=== PATIENT | female | born 1945 | race Caucasian/White ===

== ENCOUNTER 2016-08-09 01:41 | Emergency (ER) | payer MEDICARE, MEDICAID | END 2016-08-09 04:05 | disposition home or self-care (01) | DX: I10 Essential (primary) hypertension (principal); R07.89 Other chest pain; E11.9 Type 2 diabetes mellitus without complications; Z79.84 Long term (current) use of oral hypoglycemic drugs; Z79.82 Long term (current) use of aspirin ==

== ENCOUNTER 2016-10-30 08:53 | Outpatient (CLI) | payer MEDICARE, MEDICAID | END 2016-10-30 08:54 | disposition home or self-care (01) | DX: E11.9 Type 2 diabetes mellitus without complications (principal) ==

== ENCOUNTER 2017-03-02 08:00 | Outpatient (CLI) | payer MEDICARE, MEDICAID ==
[2017-03-02 19:38] LABS: CALCIUM 9.2 mg/dL (8.5-10.3); CREATININE 1.3 mg/dL (0.4-1.0); POTASSIUM 3.7 mmol/L (3.5-5.0)
[2017-03-02 19:58] LABS: HCT - HEMATOCRIT 40.7 % (37.0-47.0); HGB - HEMOGLOBIN 13.7 g/dL (12.0-16.0); MEAN CORPUSCULAR HEMOGLOBIN 29.9 pg (27.0-31.0); MEAN CORPUSCULAR HGB CONC 33.6 g/dL (32.0-36.0); MEAN CORPUSCULAR VOLUME 89.2 fL (81.0-99.0); MEAN PLATELET VOLUME 7.5 fL (7.9-10.8); RED BLOOD COUNT 4.56 10^6/uL (4.20-5.40); RED CELL DISTRIBUTION WIDTH 13.3 % (12.0-15.0); WHITE BLOOD COUNT 6.7 x10^3/uL (4.8-10.8)
[2017-03-04 09:27] LABS: TEST RESULT REPORT (())
== END 2017-03-02 08:01 | disposition home or self-care (01) ==
LOC: LAB.N 08:00
PROVIDERS: ATTEND Internal Medicine Nephrology
DX: N05.9 Unspecified nephritic syndrome with unspecified morphologic changes (principal); D70.9 Neutropenia, unspecified; D63.1 Anemia in chronic kidney disease; R80.9 Proteinuria, unspecified
CPT/HCPCS: 36415; 80048; 81599; 82570; 84156; 86021

== ENCOUNTER 2017-12-20 13:06 | Outpatient (CLI) | payer MEDICARE, MEDICAID ==
--- NOTE | 2017-12-21 01:35 | XRAY Report ---
EXAM: CHEST RADIOGRAPHY EXAM DATE: 12/20/2017 01:23 PM. CLINICAL HISTORY: History of lung surgery for pulmonary mass,encounter. COMPARISON: 08/09/2016. TECHNIQUE: 2 views. FINDINGS: Lungs/Pleura: Lungs are mildly hyperinflated. No focal opacities. No pneumothorax or effusions. Lef t apical region of scarring is noted. Mediastinum: Heart and mediastinal contours are unremarkable. Other: None. IMPRESSION: Probable COPD with areas of scarring at the left lung apex. No acute pulmonary process. [facility] Referring Provider Line: [phone] SITE ID: [id number]
== END 2017-12-20 13:07 | disposition home or self-care (01) ==
LOC: RT 13:06
PROVIDERS: ATTEND Obstetrics & Gynecology
DX: Z01.818 Encounter for other preprocedural examination (principal); Z86.018 Personal history of other benign neoplasm
CPT/HCPCS: 71046; 93005; 94010

== ENCOUNTER 2018-02-02 16:07 | Outpatient (CLI) | payer MEDICARE, MEDICAID ==
[2018-02-02 16:29] LABS: LYMPHOCYTES # (AUTO) 3.2 10^3/uL (1.5-3.5); MONOCYTES # (AUTO) 0.5 10^3/uL (0.0-1.0); WHITE BLOOD COUNT 7.3 x10^3/uL (4.8-10.8)
[2018-02-02 16:31] LABS: BASOPHILS % (AUTO) 0.2 %; EOSINOPHILS # (AUTO) 0.2 10^3/uL (0.0-0.7); EOSINOPHILS % (AUTO) 3.3 %; HGB - HEMOGLOBIN 13.9 g/dL (12.0-16.0); LYMPHOCYTES % (AUTO) 43.8 %; MEAN CORPUSCULAR HEMOGLOBIN 29.5 pg (27.0-31.0); MEAN CORPUSCULAR HGB CONC 33.2 g/dL (32.0-36.0); MEAN CORPUSCULAR VOLUME 88.8 fL (81.0-99.0); MEAN PLATELET VOLUME 6.9 fL (7.9-10.8); MONOCYTES % (AUTO) 6.9 %; NEUTROPHILS # (AUTO) 3.3 10^3/uL (1.5-6.6); NEUTROPHILS % (AUTO) 45.8 %; PLT - PLATELET COUNT 222 10^3/uL (130-450); RED BLOOD COUNT 4.72 10^6/uL (4.20-5.40); RED CELL DISTRIBUTION WIDTH 14.2 % (12.0-15.0)
[2018-02-02 16:37] LABS: BILIRUBIN,URINE NEGATIVE (NEGATIVE); GLUCOSE, URINE (UA) NEGATIVE (NEGATIVE); KETONES,URINE (UA) NEGATIVE (NEGATIVE); LEUKOCYTE ESTERASE, URINE NEGATIVE (NEGATIVE); NITRITE,URINE POSITIVE (NEGATIVE); OCCULT BLOOD,URINE TRACE-LYSE (NEGATIVE); PROTEIN,URINE NEGATIVE (NEGATIVE); UROBILINOGEN,URINE 0.2 (NORMAL) E.U./dL (NORMAL)
[2018-02-02 16:39] LABS: CLARITY,URINE HAZY (CLEAR)
[2018-02-02 16:44] LABS: HB2 TOTAL 14.3 g/dL; HEMOGLOBIN A1C 0.66 g/dL; HEMOGLOBIN A1C % 6.4 % (4.6-6.2)
[2018-02-02 16:50] LABS: ALBUMIN 3.9 g/dL (3.2-5.5); ALBUMIN/GLOBULIN RATIO 1.1 (1.0-2.2); BILIRUBIN,TOTAL 0.7 mg/dL (0.2-1.0); CALCIUM 9.2 mg/dL (8.5-10.3); CREATININE 1.3 mg/dL (0.4-1.0); TOTAL PROTEIN 7.5 g/dL (6.7-8.2)
== END 2018-02-02 16:08 | disposition home or self-care (01) ==
LOC: LAB 16:07
PROVIDERS: ATTEND Obstetrics & Gynecology
DX: Z01.812 Encounter for preprocedural laboratory examination (principal); N81.4 Uterovaginal prolapse, unspecified; R32 Unspecified urinary incontinence; E11.9 Type 2 diabetes mellitus without complications
CPT/HCPCS: 36415; 80053; 81003; 83036; 85025; 86850; 86900; 86901

== ENCOUNTER 2018-02-03 06:21 | Inpatient (IN) | payer MEDICARE, MEDICAID ==
--- NOTE | 2018-01-28 10:38 | PREOP HISTORY & PHYSICAL ---
DATE OF SERVICE: 01/26/2018 Physician: Aleksander Moraes MD DATE OF PROCEDURE OF 02/03/2018 DIAGNOSES 1. Third degree cystocele, second degree rectocele and uterine prolapse. 2. Failed pessary attempt secondary to erosions into the vaginal wall. PROPOSED PROCEDURES 1. Total vaginal hysterectomy. 2. Anterior and posterior colporrhaphy. 3. Sacrospinous colpopexy. 4. Possible laparotomy. 5. Possible salpingo-oophorectomy. HISTORY OF PRESENT ILLNESS: The patient is a 72-year-old 6 para 6, Filipina woman who has significant prolapse bulge with associated pain. Prolapse is multicompartment, grade 3 cystocele, grade 2 rectocele, and grade 2 uterine prolapse. She was using a pessary for some time, until her arthritis made it difficult to manage. She neglected pessary hygiene and developed deep erosions into the posterior fornix, towards the rectum and bladder a little bit inferior. She was begun on pessary rest for over a month with supplemental doses of MetroGel and Vagifem. She does not have any postmenopausal bleeding, and her chronic discharge has abated with the MetroGel and Vagifem. Patient does not report any stress urinary incontinence but does have bladder neck and urethral mobility. Her last Pap smear was in 2010 and normal, with no history of abnormal Pap smears. PAST MEDICAL HISTORY 1. Hypertension. 2. Osteopenia associated with chronic back pain. 3. History of both hip and pelvic fracture. 4. Last mammogram was normal in 2012. 5. Known type 2 diabetes and thyroid disease. PAST SURGICAL HISTORY 1. Appendectomy in 1968. 2. Pneumonectomy. ALLERGIES: NO KNOWN DRUG ALLERGIES. MEDICATIONS 1. Vagifem tablets. 2. MetroGel vaginal ointment twice a day. 3. Diovan. 4. Prevacid. 5. Antihypertensives yet to be listed. FAMILY HISTORY: Breast cancer sister, lung cancer brother. No colon cancer or ovarian cancer known. SOCIAL HISTORY: . Never smoked. No drug or alcohol use. Occasional coffee use. Occupation retired. Not currently sexually active. We will discuss advance directive. REVIEW OF SYSTEMS CONSTITUTIONAL: Negative. No night sweats, fevers, or recent illnesses. HEENT: Negative. CARDIOVASCULAR: Negative. RESPIRATORY: Spontaneous pneumothorax and thoracotomy. GI: Negative. GENITOURINARY: Grand multiparity. No stress or urge incontinence noted. 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 SKIN: Negative. BREASTS: Breast exam negative. NEURO: Negative. PSYCHOLOGICAL: Upbeat, normal. PHYSICAL EXAMINATION GENERAL: Appears happy, talkative. Well-nourished, walks without any assistance. HEENT: Atraumatic. Good oral hygiene. No pharyngitis. Nonicteric sclerae. NECK. Supple neck. No thyroid enlargement or nodules. LUNGS: Chest symmetric, normal respiratory excursions. Lungs clear to auscultation. CARDIAC: Regular, minor flow murmur II/. EXTREMITIES: No peripheral vascular abnormalities other than varicose veins in the legs. ABDOMEN: Soft, nontender. No hernia or masses. MUSCULOSKELETAL: Adequate range of motion. No CVA tenderness. No pedal edema or muscular wasting. There are degenerative changes in the fingers and lower spine. NEUROLOGIC: Grossly normal. No obvious motor or sensory defect. Cranial nerves intact. PSYCHOLOGICAL: Alert, oriented. EXTERNAL GENITALIA: Bartholin glands normal. No lesions. Urethral meatus is normal, but mobile. Some minor vulvar atrophic changes. Vagina moist. MetroGel in place. Vastly improved posterior fornix skin quality. Cystocele stage 3, rectocele stage 2, with a nearly grade 2 uterine prolapse. CERVIX: No ulcerations. Some redundancy of vaginal mucosa in the posterior fornix, probably torn in delivery. UTERUS: Retroverted, retroflexed, mobile. ADNEXAE: Cannot palpate either adnexa. ADMISSION LABS: Pending. ASSESSMENT: This patient is an active 72-year-old woman who has failed pessary trial due to difficulty maintaining appropriate hygiene. She is symptomatic without the pessary and desires prolapse repair. Her prolapse involves all 3 compartments. Therefore, this can be adequately addressed including hysterectomy with enterocele repair, followed by anterior and posterior repair, and sacrospinous suspension to provide apical support. Patient may have procedure under regional anesthesia. She does have a history of thoracotomy. Chest x-ray shows mildly hyperinflated lungs without any opacities or pneumothorax. Heart and mediastinal contour is normal. Probable mild chronic obstructive pulmonary disease. Anesthesia clearance already obtained. Reference Pierre Ley's note. PLAN: Total vaginal hysterectomy with probable enterocele repair and concomitant anterior and posterior repair. The patient prizes longevity, and is sexually inactive; therefore colporrhaphy may be done aggressively. To provide adequate anterior support, sacrospinous stitch is anticipated. The procedure may be done under regional anesthesia or spinal. In terms of recurrence of stress urinary incontinence, it may or may not occur, as the ureter is unkinked. May reserve surgery if this becomes a problem in the future. All risks, benefits, and potential complications were reviewed, as well as alternative therapy. Informed consent paperwork was signed. Patient is anticipated to require observation or admission due to multiple surgical procedures, multiple medical problems, advanced age and need for bladder training. Do not anticipate the admission to last more than 96 hours. TD: 01/26/2018 10:24 EVETTE
--- NOTE | 2018-01-31 08:45 | PREOP HISTORY & PHYSICAL ---
DATE OF SERVICE: 02/02/2018 Physician: Aleksander Moraes MD PREOPERATIVE DIAGNOSES 1. Near-complete vaginal ureteral prolapse. 2. Failed pessary trial. 3. History of thoracotomy. 4. Osteopenia. 5. Hypertension. 6. Grand multip. 7. Type 2 diabetes. 8. Hyperthyroidism treated with radioactive iodine. DATE OF SURGERY 03 FEBRUARY 2018 PROCEDURE 1. Total vaginal hysterectomy 2. Anterior and posterior colporrhaphy 3. Sacral spinous vaginal resuspension 4. Postoperative cystoscopy HISTORY OF PRESENT ILLNESS: Patient is a 72-year-old spry and active 6 , para 6, Filipina lady who has used a pessary for a number of years to reduce her large cystorectocele and uterine prolapse. Arthritis in the fingers has become an issue, and she can no longer maintain pessary hygiene. Recently she was treated for vaginal erosion secondary to the pessary. After prolonged pessary rest, estrogen topical cream, and MetroGel , she finally healed these deep erosions. Reference my office notes on 01/26/2018. Patient is a grand multip with history of 6 vaginal deliveries. Generally between 2700 and 3000 grams. Patient does not report any postmenopausal bleeding. Her last Pap was in 2010 and normal. She has had no abnormal Pap results. Patient no longer feels that the pessary is not her best option, since she can no longer remove it and maintain it. She desires surgical correction. On 3 occasions surgical options were reviewed. She will require remedy of uterine prolapse, apical prolapse with a third-degree cystocele, and second-degree rectocele. She desires aggressive repair so that she has less of a chance of a second procedure. Currently she is not sexually active, nor does she intend to become. Risks of surgery were discussed on 2 occasions including blood loss , transfusion, anesthesia reaction, damage to urinary tract and intestinal tract. No guarantee of cure was made. Intended procedure will be total vaginal hysterectomy with removal of tubes and ovaries if accessible; anterior repair with sacrospinous colpopexy, and posterior repair with perineoplasty. PAST MEDICAL HISTORY Patient has type 2 diabetes, which is well controlled with diet, exercise, and medication. Last hemoglobin A1c pending. Patient is also known to be hypertensive with good control. Patient has chronic back and hip pain. Her most recent bone density 2 years ago was within normal range. Last mammogram is normal on 2012. PAST SURGICAL HISTORY 1. Appendectomy. 2. 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 ALLERGIES: NO KNOWN MEDICAL ALLERGIES. MEDICATIONS 1. Vagifem 10 mcg twice weekly. 2. MetroGel. 3. Diovan. 4. Evista. 5. Prevacid. REVIEW OF SYSTEMS CONSTITUTIONAL: Negative. HEENT: Negative. CARDIOVASCULAR: Negative. RESPIRATORY: Negative. GI: Negative. : Patient reports stress urinary incontinence and has some known bladder mobility. Urinalysis negative. MUSCULOSKELETAL: Back pain is noted, again, before, past history of Lexi disease. SKIN: Negative. BREASTS: No self-breast exam findings. NEUROLOGIC: Negative. PSYCHOLOGIC Negative. HEMATOLOGIC/LYMPHATIC: Negative. Patient does not report easy bruising tendency. SOCIAL HISTORY: . No drug, tobacco, or alcohol use. Currently disabled. ADVANCED DIRECTIVES: She states she desires resuscitation. FAMILY HISTORY: Breast cancer, sister; lung cancer, brother. PHYSICAL EXAMINATION GENERAL: Well groomed, pleasant, alert, oriented. VITAL SIGNS: Posted. HEENT: Supple neck, no thyromegaly. EOMI. Nonicteric sclerae. Dentition in repair. LUNGS: Clear to auscultation. Thoracotomy scar noted, right lung. CARDIAC: Regular. No significant murmur or gallop. GI/ABDOMEN: Nondistended. No organomegaly. No tenderness. EXTERNAL GENITALIA: No lesions noted. Estrogen effect present. VAGINA: Pessary out, and mucosa is pink and reepithelialized. No tenderness noted. Notable uterine prolapse. Third-degree cystocele, second-degree rectocele. Uterus small, mobile, prolapses almost to the introitus. EXTREMITIES: Varicosities noted both extremities. NEUROLOGIC: Grossly intact. PSYCHOLOGICAL: Alert, oriented. ASSESSMENT: Patient has known near-total uterovaginal prolapse that has been treated with a pessary for several years. Unfortunately, arthritis makes the pessary difficult to maintain appropriate hygiene, and vaginal erosions have occurred. These have been successfully treated, and patient wishes to explore surgical treatment of the prolapse. Looking at the prolapsing pelvic compartments, comprehensive suspension is best. She has received clearance from Anesthesia prior to this procedure. Patient may be done under spinal anesthetic to avert pulmonary or vascular stress if Anesthesia deems appropriate. PLAN: Total vaginal hysterectomy with possible bilateral salpingooophorectomy; anterior posterior repair; sacrospinous suspension procedure; perineoplasty. At this time, sling procedure will be held until post procedure to determine if iatrogenic stress urinary incontinence occurs. We discussed the potential benefits, risks, and alternatives to surgery. Appropriate informed consent documents were signed and witnessed. TD: 02/02/2018 10:16 EVETTE
[2018-02-03] MEDS ORDERED: LACTATED RINGERS 1,000 ML IV ONE ×2 (06:48→13:15)
[2018-02-03] MEDS ORDERED: ceFAZolin 2 GM/50 ML 2 GM/50 ML BAG IV ONE (07:26)
[2018-02-03] MEDS ORDERED: BUPIVACAINE 0.5% PF 30 ML VIAL ONE (07:42)
[2018-02-03] MEDS ORDERED: ESTROGENS, CONJUGATED CREAM 30 GM TUBE ONE (07:43)
[2018-02-03] MEDS ORDERED: MIDAZOLAM 2 MG/2 ML VIAL IVP ONE (10:00)
[2018-02-03] MEDS ORDERED: ROCURONIUM 50 MG/5 ML VIAL IVP ONE (10:00)
[2018-02-03] MEDS ORDERED: GLYCOPYRROLATE 1 MG/5 ML VIAL IVP ONE (10:00)
[2018-02-03] MEDS ORDERED: DEXAMETHASONE 4 MG/ML VIAL IVP ONE (10:00)
[2018-02-03] MEDS ORDERED: NEOSTIGMINE 1 MG/1 ML 10 ML MDV IVP ONE (10:00)
[2018-02-03] MEDS ORDERED: LIDOCAINE-MPF 2% 5 ML VIAL IM ONE (10:00)
[2018-02-03] MEDS ORDERED: ACETAMINOPHEN 1,000 MG/100 ML 100 ML IV ONE (10:00)
[2018-02-03] MEDS ORDERED: PROPOFOL 200 MG/20 ML VIAL IVP ONE (10:00)
[2018-02-03] MEDS ORDERED: ONDANSETRON 4 MG/2 ML VIAL IVP ONE (10:00)
[2018-02-03] MEDS ORDERED: fentaNYL 250 MCG/5 ML VIAL IVP ONE (10:00)
--- NOTE | 2018-02-03 10:17 | OPERATIVE REPORT ---
Operative Report - General Procedure Date: 02/03/18 Pre-Op Diagnosis: Uterine and vaginal prolapse; hypertension; type 2 diabetes; failed pessary Procedure Performed: Total vaginal hysterectomy; anterior and posterior colporrhaphy; sacral spinous colpopexy; Whelan's culdoplasty; Hanna plication; perineal plasty; cystoscopy Post Op Diagnosis: Same as above; cystitis cystica - Procedure Note Primary Surgeon: Aleksander Moraes MD FACOG Secondary Surgeon: Aleksander Vance MD F ACOG Anesthesia Provider: Lesli Patel certified nurse enterprise mobility architect Anesthesia Technique: General ET tube Pathology: Uterus IV Fluids (mL): 800 Estimated Blood Loss (mL): 150 Urine Output (mL): 200 Drain/Tube Type: Other (Johnson catheter; vaginal packing with Premarin) Complications: None
[2018-02-03] MEDS ORDERED: BUPIVACAINE 0.5% PF 30 ML VIAL INFIL ONE (10:38)
[2018-02-03] MEDS ORDERED: BUPIVACAINE 0.5%-EPI 1:200000 PF 30 ML VIAL SUBQ ONE ×2 (10:40)
[2018-02-03] MEDS ORDERED: BUPIVACAINE 0.5%-EPI 1:200000 PF 30 ML VIAL ONE (10:46)
[2018-02-03] MEDS ORDERED: METHYLENE BLUE 0.5% 50 MG/10 ML AMPULE ONE (12:33)
[2018-02-03] MEDS: hydrALAZINE INJ 20 MG/ML VIAL ONE ×2 (13:35→13:46)
[2018-02-03] MEDS ORDERED: ONDANSETRON 4 MG/2 ML VIAL IVP PRN (14:11)
[2018-02-03] MEDS ORDERED: BENZONATATE 100 MG CAPSULE PO PRN (14:31)
[2018-02-03] MEDS: LACTATED RINGERS 1,000 ML IV SCH (14:37)
[2018-02-03] MEDS: HYDROmorphone 0.5 MG/0.5 ML SYRINGE IVP PRN (14:41)
[2018-02-03] MEDS ORDERED: SODIUM CHLORIDE FLUSH 0.9% 10 ML SYRINGE ONE (15:54)
[2018-02-03] MEDS ORDERED: ACETAMINOPHEN 1,000 MG/100 ML 100 ML IV PRN (15:57)
--- NOTE | 2018-02-03 17:28 | OPERATIVE REPORT ---
DATE OF SERVICE: 02/03/2018 Physician: Aleksander Moraes MD PREOPERATIVE DIAGNOSES 1. Near complete uterine and vaginal prolapse (third degree cystocele, second degree rectocele, second-degree uterine prolapse with enterocele). 2. Chronic hypertensive. 3. Type 2 diabetic. 4. COPD 5. Failed pessary trial. POSTOPERATIVE DIAGNOSES 1. Almost complete uterine and vaginal prolapse (third degree cystocele, second degree rectocele, second-degree uterine prolapse with enterocele). 2. Chronic hypertensive. 3. Type 2 diabetic. 4. Failed pessary trial. 5. Cystitis cystica. 6. COPD PROCEDURES PERFORMED 1. Total vaginal hysterectomy. 2. Anterior and posterior colporrhaphy. 3. Sacral spinous colpopexy. 4. Whelan culdoplasty. 5. Hanna plication. 6. Perineoplasty. 7. Cystoscopy. SURGEON: Aleksander Moraes MD, FACOG, FICS SLEEPING CAR CONDUCTOR: Aleksander Grant MD, FACOG ANESTHESIA: Lesli Patel, certified nurse watchmaker apprentice. ANESTHESIA: General, ET tube placed; 30 cc of Marcaine 0.5% with epinephrine COMPLICATIONS: None. ESTIMATED BLOOD LOSS: 150 mL IV FLUIDS: 800 mL URINE OUTPUT: 200 mL, clear. DRAINS: Johnson catheter with vaginal packing enriched with Premarin. FINDINGS: At the time of surgery, the uterus had prolapsed 3 cm through the hymenal ring with a large bulging cystocele. There was a kissing rectocele that was a little smaller, grade 2. In the cul-de-sac, there was small intestine and there was also small intestine in the anterior cul-de-sac as well. The ovaries were not visualized. Cystoscopy reveals a uterine mucosa studded with cystic blebs from severe cystitis cystica. There was no obvious tumor. Both the right and left ureter produced urine. Rectal exam found no intraluminal stitches. Postoperatively, the vaginal apex was supported well into the pelvis by means of sacrospinous suspension sutures. TECHNIQUE: The patient was brought to operating table and placed in the supine position for administration of general anesthesia. She was uneventfully induced and intubated. She was then moved to the low dorsal lithotomy position on [facility] stirru. She was prepped and draped in customary sterile fashion, inclusive of Johnson catheter. Timeout briefing was done per protocol. A weighted retractor was placed in the posterior vaginal wall and the cervix was grasped with two Sj clamps and placed on traction. The cervical barrel then was injected with multiple small volume doses of Marcaine with epinephrine. The cervix then was circumscribed in a manner that included a tongue of acetowhite epithelium on the cervical barrel at 8 to 10 o'clock. Using sharp and blunt dissection, anterior compartment was developed and sharply entered. The posterior compartment was sharply entered without difficulty. The base of the uterosacral ligaments were clamped, transected, and then transfixed with a suture of 0 Vicryl. Next, the uterosacral ligaments and cardinal ligaments were grasped, transected, and transfixed with 0 Vicryl. The uterine vessels were clamped, transected, and suture ligated with 0 Vicryl. The tubes and utero-ovarian ligaments were finally clamped, transected, and transfixed with 0 Vicryl. The uterus then was removed in total. It was elected not to attempt salpingo-oophorectomy because the ovaries and tubes were high within the pelvis. The pelvic floor peritoneum was doubly purse stringed with 2-0 Vicryl. Next, the uterosacral and cardinal ligaments were plicated in the midline to create a ligamentous shelf of support. A 0 Vicryl strand from the uterosacral ligaments was passed through the vaginal mucosa, as to tack it into the ligamentous support. The vaginal mucosa was closed in the midline with a running stitch of 0 Vicryl. Next, anterior colporrhaphy was accomplished. Small aliquots of 0.5% Marcaine and epinephrine were injected along the 6 o'clock position of the cystocele bulge, beginning at the bladder neck and continuing down to the vaginal cuff. Using sharp and blunt dissection, the vaginal mucosa was peeled off of the underlying fascia. The underlying fascia was then gathered with a running stitch of 2-0 Vicryl. This readily reduced the cystocele bulge. Next, the periurethral fascia was grasped slightly behind the pubis and captured with a stitch of 0 Vicryl on either side of the urethra. This tissue was then plicated together in the midline to provide bladder neck support. The anterior repair of vaginal mucosa was then closed with interrupted sutures of 2-0 chromic. Next, posterior colporrhaphy was accomplished. Beginning at the vaginal cuff 6 o'clock position, a midline incision was executed up to the hymenal ring. Two tent- like flaps of vaginal mucosa were developed with blunt and sharp dissection. The bulging rectocele defect underneath was first reduced with a running stitch of 2-0 chromic. After that, a second stitch of 2-0 Vicryl was placed to further reduce the bulge. The top one-third of the vaginal part of the colporrhaphy was then closed. Sacrospinous colpopexy. The ischial spines were identified as well as palpating the sacrospinous ligament. The Capio was loaded with 0 Ethibond and placed 1 fingerbreadth medial of the spine, directly overhead the sacrospinous ligament. When certain of the position and angle of fire, the Capio was activated and the suture passed through the sacrospinous ligament. A similar suture was placed approximately 0.5 cm medial to the first. Next, each SSC strand was tied into a ian stitch that captured the posterior colporrhaphy vaginal mucosa slightly below and lateral to the cuff. The ian stitches were then pulled tightly and elevated the vaginal cuff into the pelvis. Care was taken to ensure there was no violin string present. Next, the remainder of posterior colporrhaphy vaginal mucosa was closed with interrupted stitches of 0 chromic. A V-like incision was placed above the anus over the perineal body. The skin was removed. Next, the perineal body and bulbocavernosus muscles were captured with sutures of 0 Vicryl. In turn, they were tied tightly, thereby bolstering the perineal body. The perineal skin was closed with interrupted sutures of 3-0 Vicryl. Next, the 70-degree video cystoscope was brought to the field. It was uneventfully inserted through the urethra and into the bladder. The bladder was filled with warm sterile normal saline. A great deal of cystic change and inflammation was noted. A small dose of Lasix was given with methylene blue. The right and left ureter were noted to be functional. At this point, the Johnson was replaced. The patient was brought supine. Her sponge, needle and instrument counts were confirmed as correct. Anesthesia was reversed, and the patient was uneventfully awakened. She was taken to the recovery room in stable condition. She will remain in an overnight status/extended stay. She may require even longer hospitalization to recover function, but it is not anticipated that she will require more than 96 hours. TD: 02/03/2018 14:51 EVETTE
[2018-02-03] MEDS: PANTOPRAZOLE 40 MG TABLET PO SCH (20:02)
[2018-02-03] MEDS: CARVEDILOL 3.125 MG TABLET PO SCH (20:03)
[2018-02-03] MEDS: DOCUSATE SODIUM 250 MG CAPSULE PO SCH (20:03)
[2018-02-03] MEDS: oxyCOD/ACETAMIN 5 MG/325 MG TABLET PO PRN (20:53)
[2018-02-04] MEDS: LACTATED RINGERS 1,000 ML IV SCH ×3 (00:26→22:23)
[2018-02-04] MEDS: HYDROmorphone 0.5 MG/0.5 ML SYRINGE IVP PRN ×2 (05:44→12:00)
[2018-02-04 05:52] LABS: BASOPHILS # (AUTO) 0.1 10^3/uL (0.0-0.1); BASOPHILS % (AUTO) 0.9 %; HGB - HEMOGLOBIN 13.2 g/dL (12.0-16.0); LYMPHOCYTES # (AUTO) 2.2 10^3/uL (1.5-3.5); LYMPHOCYTES % (AUTO) 14.6 %; MEAN CORPUSCULAR HEMOGLOBIN 29.4 pg (27.0-31.0); MEAN CORPUSCULAR HGB CONC 32.9 g/dL (32.0-36.0); MEAN CORPUSCULAR VOLUME 89.4 fL (81.0-99.0); MEAN PLATELET VOLUME 6.9 fL (7.9-10.8); MONOCYTES # (AUTO) 0.9 10^3/uL (0.0-1.0); NEUTROPHILS # (AUTO) 11.9 10^3/uL (1.5-6.6); NEUTROPHILS % (AUTO) 78.5 %; PLT - PLATELET COUNT 207 10^3/uL (130-450); RED BLOOD COUNT 4.49 10^6/uL (4.20-5.40); WHITE BLOOD COUNT 15.2 x10^3/uL (4.8-10.8)
[2018-02-04 06:05] LABS: ALBUMIN 3.4 g/dL (3.2-5.5); CALCIUM 8.5 mg/dL (8.5-10.3); CREATININE 1.2 mg/dL (0.4-1.0); TOTAL PROTEIN 6.7 g/dL (6.7-8.2)
[2018-02-04] MEDS: oxyCOD/ACETAMIN 5 MG/325 MG TABLET PO PRN ×4 (06:57→22:54)
--- NOTE | 2018-02-04 08:30 | PROVIDER PROGRESS NOTE ---
Subjective - General Procedure Date: 02/03/18 Post Op Days: 1 Procedure Performed: Pelvic reconstruction, TVH, A & P repair, Sacral Spinous Suspension - Review of Systems Wound/Incisions: positive: Other (Clean dry stitches intact) Drain Type: Johnson Drain Output Description: Clear urine General: positive: No symptoms HEENT: positive: No symptoms Pulmonary: positive: No symptoms Cardiovascular: positive: No symptoms Gastrointestinal: positive: Flatus Genitourinary: positive: Other (Sore perineum. No bite or back pain) Musculoskeletal: positive: No symptoms Skin: positive: No symptoms Psychiatric: positive: No symptoms Objective - Patient Data Weight: Weight 02/02/18 02/03/18 02/04/18 23:59 23:59 23:59 Weight (kg) 61.2 kg Intake & Output: Intake and Output Totals x24h 02/02/18 02/03/18 02/04/18 23:59 23:59 23:59 Intake Total 770 980 Output Total 1800 Balance -1030 980 - Lab Results Lab Results: 02/04/18 05:45 02/04/18 05:45 Other Lab Results: Lab Results x24hrs 02/04/18 02/04/18 02/03/18 Range/Units 05:45 05:45 12:57 WBC 15.2 H (4.8-10.8) x10^3/uL RBC 4.49 (4.20-5.40) 10^6/uL Hgb 13.2 (12.0-16.0) g/dL Hct 40.1 (37.0-47.0) % MCV 89.4 (81.0-99.0) fL MCH 29.4 (27.0-31.0) pg MCHC 32.9 (32.0-36.0) g/dL RDW 14.0 (12.0-15.0) % Plt Count 207 (130-450) 10^3/uL MPV 6.9 L (7.9-10.8) fL Neut # (Auto) 11.9 H (1.5-6.6) 10^3/uL Lymph # (Auto) 2.2 (1.5-3.5) 10^3/uL [place] # (Auto) 0.9 (0.0-1.0) 10^3/uL Eos # (Auto) 0.0 (0.0-0.7) 10^3/uL Baso # (Auto) 0.1 (0.0-0.1) 10^3/uL Absolute Nucleated RBC 0.00 x10^3/uL Nucleated RBC % 0.0 /100WBC Sodium 135 (135-145) mmol/L Potassium 3.8 (3.5-5.0) mmol/L Chloride 102 (101-111) mmol/L Carbon Dioxide 25 (21-32) mmol/L Anion Gap 8.0 (6-13) BUN 19 (6-20) mg/dL Creatinine 1.2 H (0.4-1.0) mg/dL Estimated GFR (MDRD) 44 L (>89) Glucose 135 H (70-100) mg/dL POC Whole Bld Glucose 124 H (70 - 100) mg/dL Calcium 8.5 (8.5-10.3) mg/dL Total Bilirubin 1.0 (0.2-1.0) mg/dL AST 29 (10-42) IU/L ALT 26 (10-60) IU/L Alkaline Phosphatase 60 (42-121) IU/L Total Protein 6.7 (6.7-8.2) g/dL Albumin 3.4 (3.2-5.5) g/dL Globulin 3.3 (2.1-4.2) g/dL Albumin/Globulin Ratio 1.0 (1.0-2.2) 02/03/18 Range/Units 11:57 WBC (4.8-10.8) x10^3/uL RBC (4.20-5.40) 10^6/uL Hgb (12.0-16.0) g/dL Hct (37.0-47.0) % MCV (81.0-99.0) fL MCH (27.0-31.0) pg MCHC (32.0-36.0) g/dL RDW (12.0-15.0) % Plt Count (130-450) 10^3/uL MPV (7.9-10.8) fL Neut # (Auto) (1.5-6.6) 10^3/uL Lymph # (Auto) (1.5-3.5) 10^3/uL [place] # (Auto) (0.0-1.0) 10^3/uL Eos # (Auto) (0.0-0.7) 10^3/uL Baso # (Auto) (0.0-0.1) 10^3/uL Absolute Nucleated RBC x10^3/uL Nucleated RBC % /100WBC Sodium (135-145) mmol/L Potassium (3.5-5.0) mmol/L Chloride (101-111) mmol/L Carbon Dioxide (21-32) mmol/L Anion Gap (6-13) BUN (6-20) mg/dL Creatinine (0.4-1.0) mg/dL Estimated GFR (MDRD) (>89) Glucose (70-100) mg/dL POC Whole Bld Glucose 103 H (70 - 100) mg/dL Calcium (8.5-10.3) mg/dL Total Bilirubin (0.2-1.0) mg/dL AST (10-42) IU/L ALT (10-60) IU/L Alkaline Phosphatase (42-121) IU/L Total Protein (6.7-8.2) g/dL Albumin (3.2-5.5) g/dL Globulin (2.1-4.2) g/dL Albumin/Globulin Ratio (1.0-2.2) - Current Medications Current Medications: Current Medications Generic Name Dose Route Start Last Admin Trade Name Freq PRN Reason Stop Dose Admin Carvedilol 3.125 mg 02/03/18 21:00 02/03/18 20:03 Coreg PO 3.125 mg BID CLEMENTE Administration Docusate Sodium 250 mg 02/03/18 21:00 02/03/18 20:03 Colace 250mg Capsule PO 250 mg BID CLEMENTE Administration Hydromorphone HCl 0.2 mg 02/03/18 14:10 02/04/18 05:44 Dilaudid Inj Syringe IVP 0.2 mg .[id number] PRN Administration BREAKTHOUGH PAIN Lactated Ringer's 1,000 mls @ 100 mls/hr 02/03/18 15:00 02/04/18 00:26 Lr IV 100 mls/hr .Q10H CLEMENTE Administration Acetaminophen 100 mls @ 400 mls/hr 02/03/18 15:57 02/03/18 17:43 Ofirmev IV Infused Q6HR PRN Infusion PAIN Ondansetron HCl 4 mg 02/03/18 14:11 02/03/18 15:46 Zofran Inj IVP 4 mg PRN PRN Administration Nausea / Vomiting Oxycodone/Acetaminophen 1 tab 02/03/18 14:09 02/04/18 06:57 Percocet 5 Mg/325 Mg PO 1 tab Q4HR PRN Administration PAIN Pantoprazole Sodium 40 mg 02/03/18 21:00 02/03/18 20:02 Protonix PO 40 mg QPM CLEMENTE Administration Physical Exam - Physical Exam General: positive: No acute distress, In Pain (Patient reports perineal pain) HEENT: positive: Moist mucous membranes Neck: positive: Supple w/out meningeal sx Cardiac: positive: Regular Rate Resipratory: positive: Clear to ausultation maren Abdomen: positive: Normal Bowel sounds Female : positive: Other (Peroneal stitches appear to be intact without foul discharge; internal exam not done), Director Of Strategy & Mobile present Extremities: positive: Normal ROM Skin: positive: Warm and dry Neurologic: positive: Alert and Oriented X 3, Normal Sensation, Normal Speech Assessment/Plan - Assessment/Plan Assessment: Patient is slowly recovering from pelvic reconstructive surgery and at the current time is not mobile enough for self toileting, make duration. Hemoglobin and labs are stable however her white count luisa to 15,000 without evident source of infection. She had extensive cystitis cystica and cystoscopic examination and probably has a chronic bladder infection. Patient probably will require greater than 24 hours of hospitalization and will be considered for full admission in the afternoon. Plan: Patient requires supportive care. She will benefit with antibiotics due to the cystitis cystica. She will be evaluated for possible admission this afternoon.
[2018-02-04] MEDS: NIFEdipine ER 30 MG TABLET PO SCH (10:05)
[2018-02-04] MEDS: DOCUSATE SODIUM 250 MG CAPSULE PO SCH ×2 (10:05→20:07)
[2018-02-04] MEDS: CARVEDILOL 3.125 MG TABLET PO SCH ×2 (10:05→20:07)
[2018-02-04] MEDS: ceFAZolin 1 GM in SODIUM CHLORIDE 0.9% MINIBAG 100 ML IV SCH ×2 (10:06→16:01)
[2018-02-04] MEDS: LACTULOSE 10 GM /15 ML UDC PO SCH (10:07)
[2018-02-04] MEDS ORDERED: ACETAMINOPHEN 500 MG TABLET PO PRN (11:41)
--- NOTE | 2018-02-04 11:47 | PROVIDER PROGRESS NOTE ---
Subjective - Prog Note Date Prog Note Date: 02/04/18 Prog Note Time: 11:45 - Subjective Pt reports feeling: Improved Subjective: Patient able to ambulate short distances and use the commode successfully. However she is not improving rapidly enough to allow discharge by this afternoon. Her age and multiple medical problems make it difficult for her to return to a adequate degree of self-care. She will require 24-48 hours more hospital nursing care. Discussed this problem with utilization and they concur. We will obtain a social media designer consult for discharge planning late tomorrow or the next day Objective - Vital Signs/Intake & Output Intake & Output: Intake & Output 02/01/18 02/02/18 02/03/18 02/04/18 23:59 23:59 23:59 23:59 Intake Total 770 2046.667 Output Total 1800 Balance -1030 2046.667 - Lab Results Fish Bones: 02/04/18 05:45 02/04/18 05:45 Other Labs: Lab Results x24hrs 02/04/18 02/04/18 02/03/18 Range/Units 05:45 05:45 12:57 WBC 15.2 H (4.8-10.8) x10^3/uL RBC 4.49 (4.20-5.40) 10^6/uL Hgb 13.2 (12.0-16.0) g/dL Hct 40.1 (37.0-47.0) % MCV 89.4 (81.0-99.0) fL MCH 29.4 (27.0-31.0) pg MCHC 32.9 (32.0-36.0) g/dL RDW 14.0 (12.0-15.0) % Plt Count 207 (130-450) 10^3/uL MPV 6.9 L (7.9-10.8) fL Neut # (Auto) 11.9 H (1.5-6.6) 10^3/uL Lymph # (Auto) 2.2 (1.5-3.5) 10^3/uL [place] # (Auto) 0.9 (0.0-1.0) 10^3/uL Eos # (Auto) 0.0 (0.0-0.7) 10^3/uL Baso # (Auto) 0.1 (0.0-0.1) 10^3/uL Absolute Nucleated RBC 0.00 x10^3/uL Nucleated RBC % 0.0 /100WBC Sodium 135 (135-145) mmol/L Potassium 3.8 (3.5-5.0) mmol/L Chloride 102 (101-111) mmol/L Carbon Dioxide 25 (21-32) mmol/L Anion Gap 8.0 (6-13) BUN 19 (6-20) mg/dL Creatinine 1.2 H (0.4-1.0) mg/dL Estimated GFR (MDRD) 44 L (>89) Glucose 135 H (70-100) mg/dL POC Whole Bld Glucose 124 H (70 - 100) mg/dL Calcium 8.5 (8.5-10.3) mg/dL Total Bilirubin 1.0 (0.2-1.0) mg/dL AST 29 (10-42) IU/L ALT 26 (10-60) IU/L Alkaline Phosphatase 60 (42-121) IU/L Total Protein 6.7 (6.7-8.2) g/dL Albumin 3.4 (3.2-5.5) g/dL Globulin 3.3 (2.1-4.2) g/dL Albumin/Globulin Ratio 1.0 (1.0-2.2) 02/03/18 Range/Units 11:57 WBC (4.8-10.8) x10^3/uL RBC (4.20-5.40) 10^6/uL Hgb (12.0-16.0) g/dL Hct (37.0-47.0) % MCV (81.0-99.0) fL MCH (27.0-31.0) pg MCHC (32.0-36.0) g/dL RDW (12.0-15.0) % Plt Count (130-450) 10^3/uL MPV (7.9-10.8) fL Neut # (Auto) (1.5-6.6) 10^3/uL Lymph # (Auto) (1.5-3.5) 10^3/uL [place] # (Auto) (0.0-1.0) 10^3/uL Eos # (Auto) (0.0-0.7) 10^3/uL Baso # (Auto) (0.0-0.1) 10^3/uL Absolute Nucleated RBC x10^3/uL Nucleated RBC % /100WBC Sodium (135-145) mmol/L Potassium (3.5-5.0) mmol/L Chloride (101-111) mmol/L Carbon Dioxide (21-32) mmol/L Anion Gap (6-13) BUN (6-20) mg/dL Creatinine (0.4-1.0) mg/dL Estimated GFR (MDRD) (>89) Glucose (70-100) mg/dL POC Whole Bld Glucose 103 H (70 - 100) mg/dL Calcium (8.5-10.3) mg/dL Total Bilirubin (0.2-1.0) mg/dL AST (10-42) IU/L ALT (10-60) IU/L Alkaline Phosphatase (42-121) IU/L Total Protein (6.7-8.2) g/dL Albumin (3.2-5.5) g/dL Globulin (2.1-4.2) g/dL Albumin/Globulin Ratio (1.0-2.2)
[2018-02-04] MEDS: PANTOPRAZOLE 40 MG TABLET PO SCH (20:07)
--- NOTE | 2018-02-04 21:41 | PROVIDER PROGRESS NOTE ---
Subjective - Prog Note Date Prog Note Date: 02/04/18 Prog Note Time: 18:00 - Subjective Subjective: Patient is steadily increased her activity throughout the day. She has been walking about her room. She still finds her perineal region to be sore but reports no buttock or right hip pain. Perineal pain generally causes pelvic floor tightening and retention. Originally I believe that she had voided in the morning but she did not. Bladder scan found elevated urine volume at noon and Johnson catheter was reinserted. 1200 cc of clear urine was obtained. Anticipate that she will have several days of hypotonic bladder from that over distention. Considering keeping Johnson in place until Thursday. . Objective - Vital Signs/Intake & Output Vital Signs: Vital Signs x48h Temp Pulse Resp BP Pulse Ox 02/04/18 20:11 98.1 F 64 24 136/70 H 97 02/04/18 15:54 97.3 F L 62 16 129/62 97 Intake & Output: Intake & Output 02/01/18 02/02/18 02/03/18 02/04/18 23:59 23:59 23:59 23:59 Intake Total 770 2960.000 Output Total 1800 2100 Balance -1030 860.000 - Lab Results Fish Bones: 02/04/18 05:45 02/04/18 05:45 Other Labs: Lab Results x24hrs 02/04/18 02/04/18 Range/Units 05:45 05:45 WBC 15.2 H (4.8-10.8) x10^3/uL RBC 4.49 (4.20-5.40) 10^6/uL Hgb 13.2 (12.0-16.0) g/dL Hct 40.1 (37.0-47.0) % MCV 89.4 (81.0-99.0) fL MCH 29.4 (27.0-31.0) pg MCHC 32.9 (32.0-36.0) g/dL RDW 14.0 (12.0-15.0) % Plt Count 207 (130-450) 10^3/uL MPV 6.9 L (7.9-10.8) fL Neut # (Auto) 11.9 H (1.5-6.6) 10^3/uL Lymph # (Auto) 2.2 (1.5-3.5) 10^3/uL [place] # (Auto) 0.9 (0.0-1.0) 10^3/uL Eos # (Auto) 0.0 (0.0-0.7) 10^3/uL Baso # (Auto) 0.1 (0.0-0.1) 10^3/uL Absolute Nucleated RBC 0.00 x10^3/uL Nucleated RBC % 0.0 /100WBC Sodium 135 (135-145) mmol/L Potassium 3.8 (3.5-5.0) mmol/L Chloride 102 (101-111) mmol/L Carbon Dioxide 25 (21-32) mmol/L Anion Gap 8.0 (6-13) BUN 19 (6-20) mg/dL Creatinine 1.2 H (0.4-1.0) mg/dL Estimated GFR (MDRD) 44 L (>89) Glucose 135 H (70-100) mg/dL Calcium 8.5 (8.5-10.3) mg/dL Total Bilirubin 1.0 (0.2-1.0) mg/dL AST 29 (10-42) IU/L ALT 26 (10-60) IU/L Alkaline Phosphatase 60 (42-121) IU/L Total Protein 6.7 (6.7-8.2) g/dL Albumin 3.4 (3.2-5.5) g/dL Globulin 3.3 (2.1-4.2) g/dL Albumin/Globulin Ratio 1.0 (1.0-2.2)
[2018-02-05] MEDS: ceFAZolin 1 GM in SODIUM CHLORIDE 0.9% MINIBAG 100 ML IV SCH ×2 (00:26→08:16)
[2018-02-05] MEDS: LACTATED RINGERS 1,000 ML IV SCH (00:33)
[2018-02-05 06:32] LABS: BASOPHILS # (AUTO) 0.1 10^3/uL (0.0-0.1); BASOPHILS % (AUTO) 0.5 %; EOSINOPHILS # (AUTO) 0.1 10^3/uL (0.0-0.7); EOSINOPHILS % (AUTO) 0.6 %; HGB - HEMOGLOBIN 13.2 g/dL (12.0-16.0); LYMPHOCYTES # (AUTO) 1.8 10^3/uL (1.5-3.5); LYMPHOCYTES % (AUTO) 16.3 %; MEAN CORPUSCULAR HEMOGLOBIN 29.6 pg (27.0-31.0); MEAN CORPUSCULAR HGB CONC 32.8 g/dL (32.0-36.0); MEAN CORPUSCULAR VOLUME 90.2 fL (81.0-99.0); MONOCYTES # (AUTO) 0.8 10^3/uL (0.0-1.0); MONOCYTES % (AUTO) 6.8 %; NEUTROPHILS # (AUTO) 8.4 10^3/uL (1.5-6.6); NEUTROPHILS % (AUTO) 75.8 %; PLT - PLATELET COUNT 187 10^3/uL (130-450); RED BLOOD COUNT 4.44 10^6/uL (4.20-5.40); RED CELL DISTRIBUTION WIDTH 14.3 % (12.0-15.0); WHITE BLOOD COUNT 11.1 x10^3/uL (4.8-10.8)
[2018-02-05] MEDS: NIFEdipine ER 30 MG TABLET PO SCH (08:15)
[2018-02-05] MEDS: CARVEDILOL 3.125 MG TABLET PO SCH ×2 (08:15→22:46)
[2018-02-05] MEDS: HYDROmorphone 0.5 MG/0.5 ML SYRINGE IVP PRN (08:15)
[2018-02-05] MEDS: LACTULOSE 10 GM /15 ML UDC PO SCH (08:15)
[2018-02-05] MEDS: DOCUSATE SODIUM 250 MG CAPSULE PO SCH ×2 (08:16→22:46)
--- NOTE | 2018-02-05 09:10 | PROVIDER PROGRESS NOTE ---
Subjective - General Admit Date: 02/04/18 Procedure Date: 02/03/18 Post Op Days: 2 Procedure Performed: Pelvic reconstruction, TVH, A & P repair, Sacral Spinous Suspension - Review of Systems Wound/Incisions: positive: Healing well (Patient continues to have perineal soreness. No reported bleeding from the wounds or evidence of infection.), Other (Clean dry stitches intact) Drain Type: Johnson Drain Output Description: Clear urine General: positive: No symptoms HEENT: positive: No symptoms Pulmonary: positive: No symptoms Cardiovascular: positive: No symptoms Gastrointestinal: positive: Flatus (Patient reports flatus 5 times yesterday but no passage of stool) Genitourinary: positive: Pain (Perineal pain reported; no hip buttock or sacral pain. Patient does have chronic low back pain.), Other (Sore perineum. No bite or back pain) Musculoskeletal: positive: No symptoms (Patient moves lower extremities well without evident weakness or focal sign) Skin: positive: No symptoms Psychiatric: positive: No symptoms Objective - Patient Data Weight: Weight 02/03/18 02/04/18 02/05/18 23:59 23:59 23:59 Weight (kg) 61.2 kg Intake & Output: Intake and Output Totals x24h 02/03/18 02/04/18 02/05/18 23:59 23:59 23:59 Intake Total 770 3978.500 100 Output Total 1800 2100 1650 Balance -1030 1878.500 -1550 - Lab Results Lab Results: 02/05/18 06:20 02/04/18 05:45 Other Lab Results: Lab Results x24hrs 02/05/18 Range/Units 06:20 WBC 11.1 H (4.8-10.8) x10^3/uL RBC 4.44 (4.20-5.40) 10^6/uL Hgb 13.2 (12.0-16.0) g/dL Hct 40.1 (37.0-47.0) % MCV 90.2 (81.0-99.0) fL MCH 29.6 (27.0-31.0) pg MCHC 32.8 (32.0-36.0) g/dL RDW 14.3 (12.0-15.0) % Plt Count 187 (130-450) 10^3/uL MPV 7.0 L (7.9-10.8) fL Neut # (Auto) 8.4 H (1.5-6.6) 10^3/uL Lymph # (Auto) 1.8 (1.5-3.5) 10^3/uL [place] # (Auto) 0.8 (0.0-1.0) 10^3/uL Eos # (Auto) 0.1 (0.0-0.7) 10^3/uL Baso # (Auto) 0.1 (0.0-0.1) 10^3/uL Absolute Nucleated RBC 0.00 x10^3/uL Nucleated RBC % 0.0 /100WBC - Current Medications Current Medications: Current Medications Generic Name Dose Route Start Last Admin Trade Name Freq PRN Reason Stop Dose Admin Acetaminophen 1,000 mg 02/04/18 11:41 02/04/18 15:43 Tylenol PO 1,000 mg Q8HR PRN Administration Pain or Fever > 38C (100.4F) Carvedilol 3.125 mg 02/03/18 21:00 02/05/18 08:15 Coreg PO 3.125 mg BID CLEMENTE Administration Docusate Sodium 250 mg 02/03/18 21:00 02/05/18 08:16 Colace 250mg Capsule PO 250 mg BID CLEMENTE Administration Glipizide 2.5 mg 02/04/18 08:00 02/04/18 10:05 Glucotrol Xl PO 2.5 mg DAILYWM CLEMENTE Administration Hydromorphone HCl 0.2 mg 02/03/18 14:10 02/05/18 08:15 Dilaudid Inj Syringe IVP 0.2 mg .[id number] PRN Administration BREAKTHOUGH PAIN Lactated Ringer's 1,000 mls @ 30 mls/hr 02/04/18 21:27 02/04/18 23:00 Lr IV 30 mls/hr .[id number] CLEMENTE Infusion Lactulose 10 gm 02/04/18 09:00 02/05/18 08:15 Enulose PO 10 gm DAILY CLEMENTE Administration Nifedipine 30 mg 02/04/18 09:00 02/05/18 08:15 Procardia Xl PO 30 mg DAILY CLEMENTE Administration Ondansetron HCl 4 mg 02/03/18 14:11 02/03/18 15:46 Zofran Inj IVP 4 mg PRN PRN Administration Nausea / Vomiting Oxycodone/Acetaminophen 1 tab 02/03/18 14:09 02/04/18 22:54 Percocet 5 Mg/325 Mg PO 1 tab Q4HR PRN Administration PAIN Pantoprazole Sodium 40 mg 02/03/18 21:00 02/04/18 20:07 Protonix PO 40 mg QPM CLEMENTE Administration Physical Exam - Physical Exam General: positive: No acute distress (Sitting on chair with pillow under her), In Pain (She reports her perineal pain present but slowly improving.), Alert HEENT: positive: Moist mucous membranes, Dentition normal (Patient wears dentures) Neck: positive: Supple w/out meningeal sx Cardiac: positive: Regular Rate, Other (No significant murmur rub or gallop) Resipratory: positive: Clear to ausultation maren Abdomen: positive: Normal Bowel sounds, Other (No tenderness or distention noted ) Female : positive: Mix Mill Tender present (Perineal stitches look intact without edema; anterior posterior repair remains inside, interior exam not done) Rectal: positive: Hemorrhoid Extremities: positive: Normal ROM, No pedal edema, Non tender Skin: positive: Warm and dry Neurologic: positive: Alert and Oriented X 3, Normal motor/no weakness, Normal Sensation, Normal Speech Assessment/Plan - Assessment/Plan Assessment: Patient's bladder was over distended yesterday but there is no evidence (Blood on perineal pad, vaginal bleeding, or hematuria) of disruption of reconstruction stitches. Patient underwent perineal plasty which causes increased levator plate tension which leads to urinary retention. Generally, once the patient has a bowel movement the inferior intention is greatly reduced. Johnson will be necessary until after bowel movement occurs. Due to the over distention an additional day of bladder rest may be necessary. Will consider removal of Johnson on Thursday or Thursday morning. At which time patient will require close monitoring and straight cath bladder training. Another factor is her cystitis cystica and probable chronic UTI. Patient will receive Macrobid prophylactically. Due to her age, and multiple occult problems the straight cath bladder training may be slow. Plan: PLAN * Over the weekend Dr. Sheyla Mandel will manage the patient. We I discussed the issues at hand with her during signout this morning. * Patient will remain on bladder rest until she has had a bowel movement. She has begun on the bowel care protocol and nursing should encourage ambulation around the floor. Patient may require Johnson bladder rest until Thursday or Thursday. * Once the Johnson is removed straight cath bladder training regimen should begin. I will provide detailed instructions in the nursing messages.Compliance is very important. * Patient has cystitis cystica and will require Macrobid/nitrofurantoin prophylaxis. I do not anticipate the patient to be ready for discharge until Thursday afternoon or even Thursday morning. * Planning for discharge may require home straight cath bladder training. Patient is planning to have her son day with her immediately post surgery. He needs to be trained on the straight cath bladder regimen prior to her discharge. When family comes to visit please ensure they are aware of this need.
[2018-02-05] MEDS: NITROFURANTOIN MACRO 100 MG CAPSULE PO SCH ×2 (11:20→22:45)
[2018-02-05] MEDS: diazePAM 5 MG TABLET VG SCH (11:20)
[2018-02-05] MEDS: oxyCOD/ACETAMIN 5 MG/325 MG TABLET PO PRN ×2 (11:26→16:28)
--- NOTE | 2018-02-05 18:14 | PROVIDER PROGRESS NOTE ---
Subjective - Prog Note Date Prog Note Date: 02/05/18 Prog Note Time: 18:12 - Subjective Subjective: On-call SHEET METAL LAYOUT WORKER for Dr. Moraes. Patient lying in bed. On her cell phone and handbag at her side. Mrs. Wright states she has to ask for pain medications consistently Q 4 hours. If she does not have pain she is able to sleep. Mcbride catheter in-situ. Getting IV cephazolin. Objective - Vital Signs/Intake & Output Vital Signs: Vital Signs x48h Temp Pulse Resp BP Pulse Ox 02/05/18 15:56 98.2 F 69 18 143/60 H 100 Intake & Output: Intake & Output 02/02/18 02/03/18 02/04/18 02/05/18 23:59 23:59 23:59 23:59 Intake Total 770 3978.500 2221.5 Output Total 1800 2100 3250 Balance -1030 1878.500 -1028.5 - Objective General Appearance: positive: No acute distress Eyes Bilateral: positive: Normal inspection Abdomen: positive: Non-tender Neurologic/Psychiatric: positive: Oriented x3, Mood/affect nml - Lab Results Fish Bones: 02/05/18 06:20 02/04/18 05:45 Other Labs: Lab Results x24hrs 02/05/18 Range/Units 06:20 WBC 11.1 H (4.8-10.8) x10^3/uL RBC 4.44 (4.20-5.40) 10^6/uL Hgb 13.2 (12.0-16.0) g/dL Hct 40.1 (37.0-47.0) % MCV 90.2 (81.0-99.0) fL MCH 29.6 (27.0-31.0) pg MCHC 32.8 (32.0-36.0) g/dL RDW 14.3 (12.0-15.0) % Plt Count 187 (130-450) 10^3/uL MPV 7.0 L (7.9-10.8) fL Neut # (Auto) 8.4 H (1.5-6.6) 10^3/uL Lymph # (Auto) 1.8 (1.5-3.5) 10^3/uL [place] # (Auto) 0.8 (0.0-1.0) 10^3/uL Eos # (Auto) 0.1 (0.0-0.7) 10^3/uL Baso # (Auto) 0.1 (0.0-0.1) 10^3/uL Absolute Nucleated RBC 0.00 x10^3/uL Nucleated RBC % 0.0 /100WBC Assessment/Plan - Problem List (1) Status post hysterectomy Impression: 72 yo S/p TVH, A&P repair, sacrospinous culdoplasty, Whelan's, Hanna plication 02/03/2018, POD #2. Bladder retension after surgery so mcbride catheter still in for bladder rest. Unsatisfactorily controlled pain. Will stop perococet, and PRN Tylenol 1000 mg po Q 8 HR. Start routine Celebrex 200 mg BID, routine Tylenol 1000 mg Q8 HR and routine oxycodone 5 - 10 mg po Q 4 hrs. Hopefully when pain better controlled, will be able to have Mrs Wright rest and ambulate better and therefore improve recovery.
[2018-02-05] MEDS: CELECOXIB 100 MG CAPSULE PO SCH ×2 (19:15→22:46)
[2018-02-05] MEDS: oxyCODONE 5 MG TABLET PO SCH (22:45)
[2018-02-05] MEDS: PANTOPRAZOLE 40 MG TABLET PO SCH (22:47)
[2018-02-05] MEDS: ACETAMINOPHEN 500 MG TABLET PO SCH (22:53)
[2018-02-06] MEDS: oxyCODONE 5 MG TABLET PO SCH ×6 (01:49→20:29)
[2018-02-06] MEDS: ACETAMINOPHEN 500 MG TABLET PO SCH ×3 (05:57→20:30)
[2018-02-06] MEDS: SODIUM CHLORIDE FLUSH 0.9% 10 ML SYRINGE IVP PRN ×2 (06:09→08:31)
[2018-02-06] MEDS: CELECOXIB 100 MG CAPSULE PO SCH ×2 (08:30→20:29)
[2018-02-06] MEDS: DOCUSATE SODIUM 250 MG CAPSULE PO SCH ×2 (08:30→20:29)
[2018-02-06] MEDS: NIFEdipine ER 30 MG TABLET PO SCH (08:30)
[2018-02-06] MEDS: LACTULOSE 10 GM /15 ML UDC PO SCH (08:31)
[2018-02-06] MEDS: CARVEDILOL 3.125 MG TABLET PO SCH ×2 (08:31→20:29)
[2018-02-06] MEDS: SENNA 8.6 MG TABLET PO SCH (08:31)
[2018-02-06] MEDS: POLYETHYLENE GLYCOL 3350 17 GM PACKET PO SCH (08:31)
[2018-02-06] MEDS: NITROFURANTOIN MACRO 100 MG CAPSULE PO SCH ×2 (08:31→20:29)
[2018-02-06] MEDS: diazePAM 5 MG TABLET VG SCH (08:33)
--- NOTE | 2018-02-06 11:54 | PROVIDER PROGRESS NOTE ---
Subjective - Prog Note Date Prog Note Date: 02/06/18 Prog Note Time: 11:53 - Subjective Pt reports feeling: Improved Subjective: Mrs. Wright is sitting in the recliner. States she does feel some pain, mainly in LLQ, but improved compared to yesterday. Denies nausea or vomiting. Denies headache. Was called this AM by RN. Mrs. Wright's BP elevated. Nifedipine 30 mg x 1 additional dose given. Mcbride catheter still in-situ. Objective - Vital Signs/Intake & Output Reviewed Vital Signs: Yes Vital Signs: Vital Signs x48h Temp Pulse Resp BP Pulse Ox 02/06/18 11:18 82 173/82 H 02/06/18 10:00 72 176/84 H 02/06/18 08:16 65 190/84 H 02/06/18 07:55 98.2 F 60 16 99 Intake & Output: Intake & Output 02/03/18 02/04/18 02/05/18 02/06/18 23:59 23:59 23:59 23:59 Intake Total 770 3978.500 2621.5 340 Output Total 1800 2100 5500 800 Balance -1030 1878.500 -2878.5 -460 - Objective General Appearance: positive: No acute distress Abdomen: positive: Non-tender Extremities: positive: Non-tender, No pedal edema Neurologic/Psychiatric: positive: Oriented x3 - Lab Results Fish Bones: 02/05/18 06:20 02/04/18 05:45 Assessment/Plan - Problem List (1) Status post hysterectomy Impression: 72 yo S/p TVH, A&P repair, sacrospinous culdoplasty, Whelan's, Hanna plication 02/03/2018, POD #3. Urinary retention noted POD#1, mcbride catheter in-situ. Improved pain control with routine Celebrex, Tylenol and oxycodone. Taking oxycodone 5 mg po Q 4 hr. Elevated BP-- doubled dose of daily nifedipine 30 mg XR. Will continue to watch BP's. Per Dr. Moraes's instructions will await for the patient to have a BM. Will then remove mcbride catheter and begin bladder training, possibly tomorrow.
[2018-02-06] MEDS ORDERED: NIFEdipine ER 30 MG TABLET PO ONE (12:00)
[2018-02-06] MEDS ORDERED: NIFEdipine ER 30 MG TABLET PO SCH (12:00)
[2018-02-06] MEDS: LACTATED RINGERS 1,000 ML IV SCH (17:00)
[2018-02-06] MEDS: PANTOPRAZOLE 40 MG TABLET PO SCH (20:30)
[2018-02-07] MEDS: oxyCODONE 5 MG TABLET PO SCH ×5 (02:05→16:59)
[2018-02-07] MEDS: ACETAMINOPHEN 500 MG TABLET PO SCH ×2 (06:12→14:21)
[2018-02-07] MEDS: POLYETHYLENE GLYCOL 3350 17 GM PACKET PO SCH (09:01)
[2018-02-07] MEDS: CARVEDILOL 3.125 MG TABLET PO SCH (09:02)
[2018-02-07] MEDS: NIFEdipine ER 30 MG TABLET PO SCH (09:02)
[2018-02-07] MEDS: SENNA 8.6 MG TABLET PO SCH (09:02)
[2018-02-07] MEDS: LACTULOSE 10 GM /15 ML UDC PO SCH (09:02)
[2018-02-07] MEDS: diazePAM 5 MG TABLET VG SCH (09:02)
[2018-02-07] MEDS: NITROFURANTOIN MACRO 100 MG CAPSULE PO SCH (09:03)
[2018-02-07] MEDS: CELECOXIB 100 MG CAPSULE PO SCH (09:03)
[2018-02-07] MEDS: DOCUSATE SODIUM 250 MG CAPSULE PO SCH (09:03)
[2018-02-07] MEDS ORDERED: NIFEdipine ER 30 MG TABLET PO ONE (12:00)
[2018-02-07 15:25] VITALS: BP 155/77
--- NOTE | 2018-02-07 15:27 | PROVIDER PROGRESS NOTE ---
Subjective - Prog Note Date Prog Note Date: 02/07/18 Prog Note Time: 15:25 - Subjective Pt reports feeling: Improved Subjective: Mrs Wright is laying in bed. Friend sitting at bedside. Mrs. Wright states she is feeling much better. Pain much better controlled today. Mcbride catheter removed and she took a shower. Patient able to void 3 times since mcbride removed in AM. Voiding about 150 mL per event. Bladder scan shows about the same amount after void. Verbalizes her desire to go home. Denies fevers, chills, nausea and vomiting. Objective - Vital Signs/Intake & Output Vital Signs: Vital Signs x48h Temp Pulse Resp BP Pulse Ox 02/07/18 15:24 97.7 F 81 16 155/77 H 98 Intake & Output: Intake & Output 02/04/18 02/05/18 02/06/18 02/07/18 23:59 23:59 23:59 23:59 Intake Total 3978.500 2621.5 910 560 Output Total 2100 5500 2300 1775 Balance 1878.500 -2878.5 -1390 -1215 - Objective General Appearance: positive: No acute distress Eyes Bilateral: positive: Normal inspection Abdomen: positive: Non-tender Neurologic/Psychiatric: positive: Oriented x3, Mood/affect nml - Lab Results Fish Bones: 02/05/18 06:20 02/04/18 05:45 Assessment/Plan - Problem List (1) Status post hysterectomy Impression: 72 yo S/p TVH, A&P repair, sacrospinous culdoplasty, Whelan's Hanna plication 02/03/2018. Resolving bladder retention. Appears to be voiding nicely. BP normotensive now. BP was elevated yesterday and required an additional dose of nifedipine 30 mg. No extra medications needed today. Since Mrs. Wright is now able to void, will discharge her to home. She has written Rx for motrin, macrobid and percocet from Dr. Moraes. Mrs. Wright to follow up with Dr. Moraes this week. Mrs. Wright to continue her routine home medications. Call if worsening fevers, chills, abdominal pain, vaginal bleeding or inability to void. Discharge summary dictated: [id number] Discharge Plan Disposition: Home, Self Care Condition: Good Diet: Regular Activity Restrictions: Activity as Tolerated (No lifting > 10 pounds. Pelvic rest.) Shower Restrictions: No Driving Restrictions: Yes (No driving) Weight Bearing: Full Weight Additional Instructions or Follow Up instructions: Follow up with Dr. Moraes this week for a post operative check. Call for worsening fevers, chills, abdominal pain, vaginal bleeding or difficulty urinating. Continue your usual home medications. Please fill the hand written prescriptions for percocet, bactrim and motrin. No Smoking: If you smoke, Please STOP! Call for help. Follow-up with: Queenie Mejia FNP [Primary Care Provider] -
--- NOTE | 2018-02-08 10:35 | DISCHARGE SUMMARY ---
Physician: Sheyla Vidal DO FACOG DATE OF ADMISSION: DATE OF DISCHARGE: 02/07/2018 DIAGNOSES ON ADMISSION: 1. A 72-year-old G6, P6-0-0-6. 2. Vaginal uterine prolapse. 3. Grade III cystocele. 4. Grade II rectocele. DIAGNOSES ON DISCHARGE 1. A 72-year-old G6, P6-0-0-6. 2. Status post 02/03/2018 total vaginal hysterectomy, anterior and posterior repair, sacrospinous colpopexy, Whelan culdoplasty, Hanna plication, perineoplasty, cystoscopy. 3. Resolving bladder retention. 4. Normal recovery. BRIEF HISTORY: The patient is a patient of [facility], [place]. Unfortunately, she has a history of uterovaginal prolapse as well as significant cystocele and rectocele. The patient was seen by Dr. Moraes, who recommended surgery for definitive therapy. HOSPITAL COURSE: The patient was admitted to the hospital on 02/03/2018 and underwent a total vaginal hysterectomy as well as an anterior-posterior colporrhaphy, sacrospinous colpopexy, Whelan culdoplasty, Hanna plication, perineoplasty and cystoscopy. There were no complications and EBL was 150 mL. After surgery, the patient had an episode of bladder retention and approximately 900 mL of urine was obtained with an in and out straight catheterization. Because of this, there was concern of the bladder distention causing a complication with her healing. The patient then had a Johnson catheter placed in her bladder in order to help with healing. The patient had the Johnson catheter kept in situ until postoperative day #4 when her pain was much better controlled. She had voided 3 times with approximately 150 mL per void and a bladder scanner showing approximately 150 mL of residual urine. The patient's difficulty with her pain control was improved after maximizing NSAIDs as well as scheduling her for routine narcotics. She also had an episode of hypertension which was satisfactorily treated with giving her a second dose of her routine nifedipine 30 mg x1. Today, on postop day #4, 02/07/2018, the patient is doing quite well. She is ambulating and tolerating her diet. Her pain is well controlled and she denies any vaginal bleeding. The patient denies any nausea, vomiting, fevers or chills. She has showered today and is ambulating quite nicely. She verbalizes her desire to go home today. The patient will be discharged to home today with instructions to continue her routine home medications. This includes Coreg 3.125 mg b.i.d., glipizide 2.5 mg daily, nifedipine XR 30 mg daily. Prescriptions for Percocet, Motrin, and Macrobid have been written for the patient. She has a followup with Dr. Moraes this week for a postoperative check. The patient is to call should she have any worsening fevers, chills, abdominal pain, vaginal bleeding or difficulty voiding. TD: 02/07/2018 15:49 [email or web address]
== END 2018-02-07 17:55 | disposition home or self-care (01) | DRG 948 ==
LOC: SDS 06:21 → MS2 13:00 → SDS 02-04 11:37 → MS2 02-04 11:38 → OBSVTOIN 02-05 10:28
PROVIDERS: ADMIT Obstetrics & Gynecology; ATTEND Obstetrics & Gynecology
PROC: 0USG7ZZ Reposition Vagina, Via Natural or Artificial Opening (ICD-10-PCS; 2018-02-03)
PROC: 0UQF0ZZ Repair Cul-de-sac, Open Approach (ICD-10-PCS; 2018-02-03)
PROC: 0HB9XZZ Excision of Perineum Skin, External Approach (ICD-10-PCS; 2018-02-03)
PROC: 0TJB8ZZ Inspection of Bladder, Via Natural or Artificial Opening Endoscopic (ICD-10-PCS; 2018-02-03)
PROC: 0UT97ZZ Resection of Uterus, Via Natural or Artificial Opening (ICD-10-PCS; principal; 2018-02-03 09:30)
PROC: 0JQC0ZZ Repair Pelvic Region Subcutaneous Tissue and Fascia, Open Approach (ICD-10-PCS; 2018-02-03 09:30)
PROC: 0JQC0ZZ Repair Pelvic Region Subcutaneous Tissue and Fascia, Open Approach (ICD-10-PCS; 2018-02-03 09:30)
DX: G89.18 Other acute postprocedural pain (principal); N81.2 Incomplete uterovaginal prolapse; N30.80 Other cystitis without hematuria; N39.3 Stress incontinence (female) (male); R33.9 Retention of urine, unspecified; R33.8 Other retention of urine; N32.89 Other specified disorders of bladder; E11.9 Type 2 diabetes mellitus without complications; J44.9 Chronic obstructive pulmonary disease, unspecified; E05.90 Thyrotoxicosis, unspecified without thyrotoxic crisis or storm; M19.049 Primary osteoarthritis, unspecified hand; M85.80 Other specified disorders of bone density and structure, unspecified site; G89.29 Other chronic pain; M54.5 Low back pain; Z90.2 Acquired absence of lung [part of]; I10 Essential (primary) hypertension; Z79.899 Other long term (current) drug therapy
CPT/HCPCS: 57260; 58260; G0378; 36415; 80053; 83036; 85025

== ENCOUNTER 2018-04-06 08:00 | Outpatient (CLI) | payer MEDICARE, MEDICAID ==
[2018-04-06 14:21] LABS: CALCIUM 9.4 mg/dL (8.5-10.3); CREATININE 1.1 mg/dL (0.4-1.0)
== END 2018-04-06 08:01 | disposition home or self-care (01) ==
LOC: LAB.N 08:00
PROVIDERS: ATTEND Internal Medicine Nephrology
DX: N05.9 Unspecified nephritic syndrome with unspecified morphologic changes (principal)
CPT/HCPCS: 36415; 80048

== ENCOUNTER 2018-05-28 08:19 | Outpatient (CLI) | payer MEDICARE, MEDICAID ==
[2018-05-28 12:25] LABS: BASOPHILS # (AUTO) 0.1 10^3/uL (0.0-0.1); BASOPHILS % (AUTO) 1.2 %; EOSINOPHILS # (AUTO) 0.2 10^3/uL (0.0-0.7); EOSINOPHILS % (AUTO) 3.4 %; HGB - HEMOGLOBIN 13.4 g/dL (12.0-16.0); LYMPHOCYTES # (AUTO) 2.3 10^3/uL (1.5-3.5); LYMPHOCYTES % (AUTO) 41.4 %; MEAN CORPUSCULAR HEMOGLOBIN 30.4 pg (27.0-31.0); MEAN CORPUSCULAR HGB CONC 34.3 g/dL (32.0-36.0); MEAN CORPUSCULAR VOLUME 88.6 fL (81.0-99.0); MEAN PLATELET VOLUME 7.5 fL (7.9-10.8); MONOCYTES # (AUTO) 0.4 10^3/uL (0.0-1.0); MONOCYTES % (AUTO) 7.2 %; NEUTROPHILS # (AUTO) 2.6 10^3/uL (1.5-6.6); NEUTROPHILS % (AUTO) 46.8 %; PLT - PLATELET COUNT 212 10^3/uL (130-450); RED BLOOD COUNT 4.41 10^6/uL (4.20-5.40); RED CELL DISTRIBUTION WIDTH 13.8 % (12.0-15.0); WHITE BLOOD COUNT 5.6 x10^3/uL (4.8-10.8)
[2018-05-28 12:35] LABS: ALBUMIN 3.6 g/dL (3.2-5.5); ALBUMIN/GLOBULIN RATIO 1.1 (1.0-2.2); BILIRUBIN,TOTAL 0.6 mg/dL (0.2-1.0); CALCIUM 8.9 mg/dL (8.5-10.3); CREATININE 1.5 mg/dL (0.4-1.0); TOTAL PROTEIN 6.8 g/dL (6.7-8.2)
[2018-05-28 12:55] LABS: HB2 TOTAL 14.6 g/dL; HEMOGLOBIN A1C 0.66 g/dL; HEMOGLOBIN A1C % 6.3 % (4.6-6.2)
== END 2018-05-28 23:59 ==
LOC: LAB.N 08:19
PROVIDERS: ATTEND Physician Assistant Medical
DX: G44.40 Drug-induced headache, not elsewhere classified, not intractable (principal); E11.9 Type 2 diabetes mellitus without complications; I10 Essential (primary) hypertension
CPT/HCPCS: 36415; 80053; 83036; 84443; 85025

== ENCOUNTER 2018-06-03 08:22 | Outpatient (CLI) | payer MEDICARE, MEDICAID ==
[2018-06-03 13:11] LABS: CALCIUM 8.5 mg/dL (8.5-10.3); CREATININE 1.6 mg/dL (0.4-1.0)
[2018-06-03 13:31] LABS: THYROID STIMULATING HORMONE 5.39 uIU/mL (0.34-5.60)
[2018-06-03 13:33] LABS: FREE T4 (FREE THYROXINE) 0.83 ng/dL (0.58-1.64)
== END 2018-06-03 08:23 ==
LOC: LAB.N 08:22
PROVIDERS: ATTEND Physician Assistant Medical
DX: N18.3 Chronic kidney disease, stage 3 (moderate) (principal); R94.6 Abnormal results of thyroid function studies
CPT/HCPCS: 36415; 80048; 84439; 84443

== ENCOUNTER 2018-06-29 07:39 | Outpatient (CLI) | payer MEDICARE, MEDICAID ==
[2018-06-29 14:54] LABS: CALCIUM 9.1 mg/dL (8.5-10.3); CREATININE 1.3 mg/dL (0.4-1.0)
== END 2018-06-29 23:59 | disposition home or self-care (01) ==
LOC: LAB.N 07:39
PROVIDERS: ATTEND Internal Medicine Nephrology
DX: N05.9 Unspecified nephritic syndrome with unspecified morphologic changes (principal)
CPT/HCPCS: 36415; 80048

== ENCOUNTER 2019-01-12 08:39 | Outpatient (CLI) | payer MEDICARE, MEDICAID ==
[2019-01-12 13:31] LABS: CREATININE 1.3 mg/dL (0.4-1.0)
== END 2019-01-12 09:15 | disposition home or self-care (01) ==
LOC: LAB.N 08:39
PROVIDERS: ATTEND Internal Medicine Nephrology
DX: N05.9 Unspecified nephritic syndrome with unspecified morphologic changes (principal); I50.32 Chronic diastolic (congestive) heart failure
CPT/HCPCS: 36415; 80048; 83880

== ENCOUNTER 2019-02-15 08:02 | Outpatient (CLI) | payer MEDICARE, MEDICAID ==
[2019-02-15 12:21] LABS: CALCIUM 9.1 mg/dL (8.5-10.3); CREATININE 1.3 mg/dL (0.4-1.0)
[2019-02-15 12:33] LABS: CREATININE,URINE 74.3 mg/dL; PROTEIN/CREATININE RATIO,URINE 0.1 (<=0.2)
== END 2019-02-15 23:59 | disposition home or self-care (01) ==
LOC: LAB.N 08:02
PROVIDERS: ATTEND Internal Medicine Nephrology
DX: N05.9 Unspecified nephritic syndrome with unspecified morphologic changes (principal); R80.9 Proteinuria, unspecified; I50.32 Chronic diastolic (congestive) heart failure
CPT/HCPCS: 36415; 80048; 82570; 83880; 84156

== ENCOUNTER 2019-06-02 09:30 | Outpatient (CLI) | payer MEDICARE, MEDICAID ==
[2019-06-02 12:02] LABS: BASOPHILS # (AUTO) 0.1 10^3/uL (0.0-0.1); BASOPHILS % (AUTO) 0.7 %; EOSINOPHILS # (AUTO) 0.3 10^3/uL (0.0-0.7); EOSINOPHILS % (AUTO) 3.4 %; HGB - HEMOGLOBIN 14.9 g/dL (12.0-16.0); LYMPHOCYTES # (AUTO) 3.4 10^3/uL (1.5-3.5); LYMPHOCYTES % (AUTO) 44.8 %; MEAN CORPUSCULAR HGB CONC 31.6 g/dL (32.0-36.0); MEAN CORPUSCULAR VOLUME 91.8 fL (81.0-99.0); MEAN PLATELET VOLUME 9.3 fL (7.9-10.8); MONOCYTES # (AUTO) 0.5 10^3/uL (0.0-1.0); MONOCYTES % (AUTO) 6.5 %; NEUTROPHILS # (AUTO) 3.3 10^3/uL (1.5-6.6); NEUTROPHILS % (AUTO) 44.2 %; PLT - PLATELET COUNT 238 10^3/uL (130-450); RED BLOOD COUNT 5.13 10^6/uL (4.20-5.40); RED CELL DISTRIBUTION WIDTH 12.8 % (12.0-15.0); WHITE BLOOD COUNT 7.6 x10^3/uL (4.8-10.8)
[2019-06-02 18:39] LABS: CALCIUM 9.6 mg/dL (8.5-10.3); CREATININE 1.3 mg/dL (0.4-1.0)
== END 2019-06-02 23:59 | disposition home or self-care (01) ==
LOC: LAB.N 09:30
PROVIDERS: ATTEND Physician Assistant Medical
DX: N18.3 Chronic kidney disease, stage 3 (moderate) (principal)
CPT/HCPCS: 36415; 80048; 85025

== ENCOUNTER 2019-10-07 14:54 | Outpatient (CLI) | payer MEDICARE, MEDICAID | END 2019-10-07 14:55 | disposition critical access hospital (66) | LOC: EMS 14:54 | PROVIDERS: ATTEND Surgery | DX: R51 Headache (principal); R11.2 Nausea with vomiting, unspecified; M54.2 Cervicalgia | CPT/HCPCS: A0425; A0427 ==

== ENCOUNTER 2019-10-07 15:17 | Emergency (ER) | payer MEDICARE, MEDICAID ==
[2019-10-07] MEDS ORDERED: HYDROmorphone 1 MG/ML CARPUJECT IVP STA (15:30)
--- NOTE | 2019-10-07 15:32 | ED Physician Documentation ---
PD HPI HEADACHE - Stated complaint Stated Complaint: HEADACHE - Chief complaint Chief Complaint: Neuro - History obtained from History obtained from: Patient (74-year-old woman with history of hypertension and headaches presents with headache that started yesterday. It is severe and worse than her normal headaches. It is worse than any other headache she is ever had. Sounds like she also has a history of pain to be a meningioma removal in 1999 and or. She points to the right side of her head. It was done in [facility]. There is also report of neck stiffness although this is not present on exam and a fever of 100 prior to arrival.) Review of Systems Ten Systems: 10 systems reviewed and negative Constitutional: reports: Fever, Fatigue Nose: denies: Rhinorrhea / runny nose, Congestion Throat: denies: Sore throat Cardiac: denies: Chest pain / pressure, Palpitations Respiratory: denies: Dyspnea, Cough GI: reports: Nausea, Vomiting. denies: Abdominal Pain PD PAST MEDICAL HISTORY - Past Medical History Cardiovascular: Hypertension, High cholesterol Respiratory: None Endocrine/Autoimmune: Type 2 diabetes GI: Ulcers [employer]: None : None, Other HEENT: None, Other Psych: Depression Musculoskeletal: None, Osteoarthritis Derm: None - Past Surgical History Past Surgical History: Yes General: Appendectomy, Other HEENT: Cataracts - Present Medications Home Medications: Ambulatory Orders Medication Instructions Recorded Confirmed Aspirin [Aspir 81] 81 mg PO DAILY 08/24/13 02/04/18 Carvedilol 12.5 mg PO BID 08/24/13 02/04/18 Glipizide [Glipizide ER] 2.5 mg PO DAILY 02/02/18 02/04/18 Magnesium Oxide [Magnesium] 400 mg PO BID 02/02/18 02/03/18 [place]-3/Dha/Epa/Fish Oil [Fish Oil 1,000 mg PO BID 02/02/18 02/03/18 1,000 mg Softgel] Chlorthalidone 25 mg 10/07/19 Valsartan [Diovan] 160 mg PO 10/07/19 - Allergies Allergies/Adverse Reactions: Allergies Allergy/AdvReac Type Severity Reaction Status Date / Time amlodipine AdvReac Unknown Verified 02/02/18 14:56 simvastatin [From Zocor] AdvReac Unknown Verified 02/02/18 14:56 - Social History Does the pt smoke?: No Smoking Status: Never smoker Does the pt drink ETOH?: No Does the pt have substance abuse?: No - Immunizations Immunizations are current?: Yes - POLST Patient has POLST: No PD ED PE NORMAL - Vitals Vital signs reviewed: Yes - General General: Alert and 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 (She is slightly encephalopathic and slow to answer questions.) - HEENT HEENT: PERRL, EOMI - Neck Neck: Supple, no meningeal sign, No bony TTP, No bruit - Cardiac Cardiac: RRR, No murmur - Respiratory Respiratory: No respiratory distress, Clear bilaterally - Abdomen Abdomen: Normal bowel sounds, Soft, Non tender - Back Back: No CVA TTP, No spinal TTP - Derm Derm: Normal color, Warm and dry - Extremities Extremities: No edema, No calf tenderness / cord - Neuro 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 and 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, No motor deficit, No sensory deficit, Normal speech Eye Opening: To Voice Motor: Obeys Commands Verbal: Oriented GCS Score: 14 - Psych Psych: Normal mood, Normal affect Results - Vitals Vitals: Vital Signs - 24 hr 10/07/19 10/07/19 10/07/19 15:24 15:29 15:37 Temperature 37.2 C Heart Rate 65 67 Respiratory 18 14 Rate Blood Pressure 190/89 H 162/70 H O2 Saturation 90 L 85 L 97 10/07/19 10/07/19 10/07/19 15:48 16:50 17:30 Temperature 36.9 C Heart Rate 63 73 67 Respiratory 16 20 18 Rate Blood Pressure 162/70 H 165/83 H 176/86 H O2 Saturation 100 100 96 10/07/19 10/07/19 10/07/19 18:00 18:12 18:20 Temperature 37.1 C Heart Rate 70 66 67 Respiratory 16 16 20 Rate Blood Pressure 130/63 123/78 137/69 H O2 Saturation 98 100 100 Oxygen O2 Source Nasal cannula - Labs Labs: Microbiology 10/07/19 17:00 CSF Culture - Preliminary Cerebral Spinal Fluid Laboratory Tests 10/07/19 10/07/19 10/07/19 15:50 15:50 15:50 WBC 5.5 RBC 4.76 Hgb 14.3 Hct 41.5 MCV 87.2 MCH 30.0 MCHC 34.5 RDW 11.9 L Plt Count 177 MPV 9.2 Neut # (Auto) 3.9 Lymph # (Auto) 0.8 L [place] # (Auto) 0.6 Eos # (Auto) 0.1 Baso # (Auto) 0.0 Absolute Nucleated RBC 0.00 Nucleated RBC % 0.0 Manual Slide Review Indicated Platelet Estimate NORMAL (130-450,000) Platelet Morphology NORMAL APPEARANCE RBC Morph Micro Appear NORMAL APPEARANCE PT 11.9 INR 1.0 Sodium 125 L Potassium 2.6 L Chloride 88 L Carbon Dioxide 24 Anion Gap 13.0 BUN 15 Creatinine 1.3 H Estimated GFR (MDRD) 40 L Glucose 153 H Lactic Acid Calcium 9.4 Total Bilirubin 1.0 AST 29 ALT 23 Alkaline Phosphatase 59 Total Protein 8.0 Albumin 4.0 Globulin 4.0 Albumin/Globulin Ratio 1.0 Lipase 69 H CSF Color CSF Clarity Xanthrochromic CSF WBC CSF RBC CSF Cell Count Tube # CSF Glucose CSF Total Protein 10/07/19 10/07/19 16:26 17:00 WBC RBC Hgb Hct MCV MCH MCHC RDW Plt Count MPV Neut # (Auto) Lymph # (Auto) [place] # (Auto) Eos # (Auto) Baso # (Auto) Absolute Nucleated RBC Nucleated RBC % Manual Slide Review Platelet Estimate Platelet Morphology RBC Morph Micro Appear PT INR Sodium Potassium Chloride Carbon Dioxide Anion Gap BUN Creatinine Estimated GFR (MDRD) Glucose Lactic Acid 1.0 Calcium Total Bilirubin AST ALT Alkaline Phosphatase Total Protein Albumin Globulin Albumin/Globulin Ratio Lipase CSF Color PINK CSF Clarity BLOODY Xanthrochromic ABSENT CSF WBC 3 CSF RBC 3660 H CSF Cell Count Tube # CSF TUBE# 3 CSF Glucose 90 H CSF Total Protein 39 - Rads (name of study) CT HEad Radiology: EMP read contemporaneously (NAD) 1v chest Radiology: EMP read contemporaneously (hypoinflation NAD) Procedures - Lumbar Puncture Position: Laying left side Location: L3-L4 Anesthesia: Local lidocaine CSF: Other (Xanthochromic all tubes without significant visual change between tubes 1 and 4. It did not seem traumatic.) Other: Sterile prep and drape, Patient tolerated well PD MEDICAL DECISION MAKING - ED course ED course: 74-year-old woman with severe headache since yesterday. Also reported fever and cough but not febrile here no white count. Chest x-ray was clear. Head CT was negative but she was a little encephalopathic and with typical complaints for concern for meningitis and LP was done. The LP was NOT traumatic. It was clearly bloody which did not change from tube to tube. She had already received Rocephin for the concern for meningitis,. Given the bloody nature of the tap I also added acyclovir but suspect a subarachnoid hemorrhage most of all. Blood pressure was up and this was treated with labetalol. Accepted by Dr. Mane Quintero to [facility] ED at 6:04 PM and cobras were completed. He recommended shooting for a goal systolic of 120 and Cardene was also ordered. Potassium is low she received 10 mEq IV and 10 mEq p.o. Sodium is also low, this is a new problem for her, concerning for SIADH. Prior labs show fairly normal potassiums despite being on chlorthalidone. - Critical Care Time(min): 45 Time Includes: Direct patient care, Review records, Reassess patient, Document care, Coordinate care, Medical consult, Family consult for tx dec (Call the daughter by phone who agreed with transfer to [facility]. She was given the hospital phone number there. Advised to call, I am not sure what their current visitation policies are.) Departure - Departure Disposition: 02 Transfer Acute Care Hosp Clinical Impression: Subarachnoid hemorrhage, Hypokalemia, Hyponatremia Headache Qualifiers: Headache type: other headache syndrome Qualified Code(s): G44.89 - Other headache syndrome Condition: Critical
[2019-10-07] MEDS ORDERED: ONDANSETRON 4 MG/2 ML VIAL IVP STA (15:56)
[2019-10-07 16:02] LABS: BASOPHILS % (AUTO) 0.4 %; EOSINOPHILS # (AUTO) 0.1 10^3/uL (0.0-0.7); EOSINOPHILS % (AUTO) 1.6 %; HGB - HEMOGLOBIN 14.3 g/dL (12.0-16.0); LYMPHOCYTES # (AUTO) 0.8 10^3/uL (1.5-3.5); LYMPHOCYTES % (AUTO) 15.3 %; MEAN CORPUSCULAR HGB CONC 34.5 g/dL (32.0-36.0); MEAN CORPUSCULAR VOLUME 87.2 fL (81.0-99.0); MEAN PLATELET VOLUME 9.2 fL (7.9-10.8); MONOCYTES # (AUTO) 0.6 10^3/uL (0.0-1.0); MONOCYTES % (AUTO) 11.3 %; NEUTROPHILS # (AUTO) 3.9 10^3/uL (1.5-6.6); NEUTROPHILS % (AUTO) 70.7 %; PLT - PLATELET COUNT 177 10^3/uL (130-450); RED BLOOD COUNT 4.76 10^6/uL (4.20-5.40); RED CELL DISTRIBUTION WIDTH 11.9 % (12.0-15.0); WHITE BLOOD COUNT 5.5 x10^3/uL (4.8-10.8)
[2019-10-07 16:03] LABS: PT - PROTHROMBIN TIME 11.9 secs (9.9-12.6)
[2019-10-07 16:11] LABS: CALCIUM 9.4 mg/dL (8.5-10.3); CREATININE 1.3 mg/dL (0.4-1.0)
[2019-10-07 16:12] LABS: PLATELET ESTIMATE, MANUAL NORMAL (130-450,000) (NORMAL); PLATELET MORPHOLOGY NORMAL APPEARANCE (NORMAL)
[2019-10-07] MEDS ORDERED: POTASSIUM CHLORIDE 20 MEQ TABLET PO STA (16:21)
[2019-10-07] MEDS ORDERED: POTASSIUM CHLOR 10 MEQ/100 ML 10 MEQ/100 ML BAG IV ONE (16:21)
--- NOTE | 2019-10-07 16:23 | CT Report ---
Reason: headache Procedure Date: 10/07/2019 Accession Number: [id number] / [id number] Procedure: CT - HEAD WO CPT Code: Final Report FULL RESULT: EXAM: CT HEAD EXAM DATE: 10/07/2019 04:09 PM. CLINICAL HISTORY: Headache. COMPARISON: HEAD W/O 12/20/2014 10:04 PM. TECHNIQUE: Multiaxial CT images were obtained from the foramen magnum to the vertex. Reformats: Sagittal and coronal. IV contrast: None. In accordance with CT protocol optimization, one or more of the following dose reduction techniques were utilized for this exam: automated exposure control, adjustment of mA and/or KV based on patient size, or use of iterative reconstructive technique. FINDINGS: Parenchyma: No intraparenchymal hemorrhage. No evidence of mass, midline shift, or CT findings of acute infarction. Moreno-white differentiation is distinct. Stable mild chronic microangiopathic white matter changes are evident. Extraaxial Spaces: Normal for age. No subdural or epidural collections identified. Ventricles: The ventricles and cortical sulci are prominent, consistent with age-related tissue loss. Sinuses and orbits: Imaged paranasal sinuses, orbits, and mastoids show no significant abnormality. Bones: No evidence of fracture or acute osseous abnormality. Stable right occipital craniotomy defect. Other: None. IMPRESSION: Stable age-related cortical atrophic changes without evidence of acute intracranial abnormality. RADIA
[2019-10-07 16:29] LABS: RBC MORPHOLOGY (MULTIPLE) NORMAL APPEARANCE (NORMAL)
[2019-10-07] MEDS ORDERED: METOCLOPRAMIDE 10 MG/2 ML VIAL IVP STA (16:38)
--- NOTE | 2019-10-07 17:06 | XRAY Report ---
Reason: cough Procedure Date: 10/07/2019 Accession Number: [id number] / [id number] Procedure: XR - Chest 1 View X-Ray CPT Code: 46883 Final Report FULL RESULT: EXAM: CHEST RADIOGRAPHY EXAM DATE: 10/07/2019 04:53 PM. CLINICAL HISTORY: Persistent cough. COMPARISON: CHEST 2 VIEW 12/20/2017 1:14 PM. TECHNIQUE: 1 view. FINDINGS: Lungs/Pleura: Hypoinflated lungs. No focal opacities evident. No pleural effusion. No pneumothorax. Mediastinum: Within exam limitations, the cardiomediastinal contour is normal. Other: None. IMPRESSION: Hypoinflation, otherwise unremarkable single view chest. RADIA
[2019-10-07] MEDS ORDERED: cefTRIAXone 2 GM in SODIUM CHLORIDE 0.9% MINIBAG 100 ML IV STA (17:22)
[2019-10-07 17:27] LABS: CSF TUBE # CSF TUBE# 3
[2019-10-07 17:28] LABS: CLARITY,CSF BLOODY (CLEAR); COLOR,CSF PINK (COLORLESS); CSF XANTHOCHROMIA ABSENT (ABSENT)
[2019-10-07 17:29] LABS: RED BLOOD CELL,CSF 3660 /mm^3 (0-1); WHITE BLOOD CELL,CSF 3 /mm^3 (0-5)
[2019-10-07 17:33] LABS: CSF - GLUCOSE 90 mg/dL (45-70)
[2019-10-07] MEDS ORDERED: ACYCLOVIR INJ 700 MG in SODIUM CHLORIDE 0.9% 250 ML IV STA (17:38)
[2019-10-07] MEDS ORDERED: LABETALOL 20 MG/4 ML SYRINGE IVP STA (17:42)
[2019-10-07] MEDS ORDERED: NICARDIPINE HCL 25 MG in SODIUM CHLORIDE 0.9% 240 ML IV STA (18:02)
[2019-10-07 18:55] VITALS: BP 125/68
[2019-10-12 10:00] LABS: SOURCE CEREBROSPINAL FLUID
== END 2019-10-07 18:57 | disposition short-term general hospital (02) ==
LOC: EDUNIT# → ED 15:17
DX: I60.9 Nontraumatic subarachnoid hemorrhage, unspecified (principal); I10 Essential (primary) hypertension; E11.9 Type 2 diabetes mellitus without complications; E87.6 Hypokalemia; E87.1 Hypo-osmolality and hyponatremia
CPT/HCPCS: 36415; 62270; 70450; 71045; 80053; 82945; 83605; 83690; 84157; 85025; 85610; 87040; 87070; 87205; 87529; 89051; 96365; 96375; 99285; 99291; A9270; J0133; J1170; J2765

== ENCOUNTER 2019-10-14 11:22 | Outpatient (CLI) | payer MEDICARE, MEDICAID ==
[2019-10-14 17:33] LABS: BASOPHILS % (AUTO) 0.5 %; EOSINOPHILS # (AUTO) 0.1 10^3/uL (0.0-0.7); EOSINOPHILS % (AUTO) 2.1 %; HGB - HEMOGLOBIN 13.2 g/dL (12.0-16.0); LYMPHOCYTES # (AUTO) 3.4 10^3/uL (1.5-3.5); LYMPHOCYTES % (AUTO) 51.1 %; MEAN CORPUSCULAR HEMOGLOBIN 28.7 pg (27.0-31.0); MEAN CORPUSCULAR HGB CONC 31.9 g/dL (32.0-36.0); MEAN PLATELET VOLUME 8.9 fL (7.9-10.8); MONOCYTES # (AUTO) 0.5 10^3/uL (0.0-1.0); NEUTROPHILS # (AUTO) 2.5 10^3/uL (1.5-6.6); NEUTROPHILS % (AUTO) 38.7 %; PLT - PLATELET COUNT 257 10^3/uL (130-450); RED CELL DISTRIBUTION WIDTH 12.5 % (12.0-15.0); WHITE BLOOD COUNT 6.6 x10^3/uL (4.8-10.8)
[2019-10-14 18:28] LABS: CALCIUM 9.1 mg/dL (8.5-10.3); CREATININE 1.2 mg/dL (0.4-1.0); HB2 TOTAL 13.6 g/dL; HEMOGLOBIN A1C 0.71 g/dL; HEMOGLOBIN A1C % 6.9 % (4.6-6.2)
== END 2019-10-14 23:59 | disposition home or self-care (01) ==
LOC: LAB.N 11:22
PROVIDERS: ATTEND Physician Assistant Medical
DX: E87.1 Hypo-osmolality and hyponatremia (principal); E87.6 Hypokalemia; J09.X2 Influenza due to identified novel influenza A virus with other respiratory manifestations; I12.9 Hypertensive chronic kidney disease with stage 1 through stage 4 chronic kidney disease, or unspecified chronic kidney disease; E11.29 Type 2 diabetes mellitus with other diabetic kidney complication; N18.3 Chronic kidney disease, stage 3 (moderate)
CPT/HCPCS: 36415; 80048; 83036; 85025

== ENCOUNTER 2020-02-09 10:40 | Outpatient (CLI) | payer MEDICARE, MEDICAID ==
[2020-02-09 18:48] LABS: BASOPHILS # (AUTO) 0.1 10^3/uL (0.0-0.1); BASOPHILS % (AUTO) 0.7 %; EOSINOPHILS # (AUTO) 0.2 10^3/uL (0.0-0.7); EOSINOPHILS % (AUTO) 2.7 %; HGB - HEMOGLOBIN 14.8 g/dL (12.0-16.0); LYMPHOCYTES # (AUTO) 2.5 10^3/uL (1.5-3.5); LYMPHOCYTES % (AUTO) 36.8 %; MEAN CORPUSCULAR HEMOGLOBIN 29.5 pg (27.0-31.0); MEAN CORPUSCULAR HGB CONC 31.7 g/dL (32.0-36.0); MEAN PLATELET VOLUME 9.3 fL (7.9-10.8); MONOCYTES # (AUTO) 0.5 10^3/uL (0.0-1.0); MONOCYTES % (AUTO) 6.9 %; NEUTROPHILS # (AUTO) 3.6 10^3/uL (1.5-6.6); NEUTROPHILS % (AUTO) 52.5 %; PLT - PLATELET COUNT 228 10^3/uL (130-450); RED BLOOD COUNT 5.02 10^6/uL (4.20-5.40); RED CELL DISTRIBUTION WIDTH 12.8 % (12.0-15.0); WHITE BLOOD COUNT 6.9 x10^3/uL (4.8-10.8)
[2020-02-09 19:01] LABS: CREATINE KINASE MB 1.7 ng/mL (0.6-6.3)
[2020-02-09 19:10] LABS: ALBUMIN 4.1 g/dL (3.2-5.5); ALBUMIN/GLOBULIN RATIO 1.1 (1.0-2.2); ALKALINE PHOSPHATASE 69 IU/L (42-121); ALT ALANINE AMINOTRANSFERASE 18 IU/L (10-60); AST ASPARTATE AMINOTRANSFERASE 22 IU/L (10-42); BILIRUBIN,TOTAL 0.8 mg/dL (0.2-1.0); BUN - BLOOD UREA NITROGEN 19 mg/dL (6-20); CALCIUM 9.4 mg/dL (8.5-10.3); CARBON DIOXIDE - CO2 29 mmol/L (21-32); CHLORIDE 104 mmol/L (101-111); CHOL/HDL RATIO 2.8 (<4.4); CHOLESTEROL 206 mg/dL; CREATININE 1.3 mg/dL (0.4-1.0); GLUCOSE 119 mg/dL (70-100); HDL CHOLESTEROL 73 mg/dL; LDL CHOLESTEROL,CALCULATED 101 mg/dL; LDL/HDL RATIO 1.4 (<4.4); SODIUM 139 mmol/L (135-145); VLDL CHOLESTEROL 32 mg/dL
== END 2020-02-09 23:59 | disposition home or self-care (01) ==
LOC: LAB.WCP 10:40
PROVIDERS: ATTEND Family Medicine
DX: I10 Essential (primary) hypertension (principal)
CPT/HCPCS: 36415; 80053; 80061; 82553; 83721; 84443; 84484; 85025; 85379

== ENCOUNTER 2020-02-09 20:57 | Emergency (ER) | payer MEDICARE, MEDICAID ==
[2020-02-09 21:42] LABS: BASOPHILS % (AUTO) 0.5 %; EOSINOPHILS # (AUTO) 0.3 10^3/uL (0.0-0.7); EOSINOPHILS % (AUTO) 3.3 %; HGB - HEMOGLOBIN 14.4 g/dL (12.0-16.0); LYMPHOCYTES # (AUTO) 3.1 10^3/uL (1.5-3.5); LYMPHOCYTES % (AUTO) 36.5 %; MEAN CORPUSCULAR HEMOGLOBIN 29.1 pg (27.0-31.0); MEAN CORPUSCULAR HGB CONC 32.4 g/dL (32.0-36.0); MEAN CORPUSCULAR VOLUME 89.9 fL (81.0-99.0); MEAN PLATELET VOLUME 8.7 fL (7.9-10.8); MONOCYTES # (AUTO) 0.7 10^3/uL (0.0-1.0); MONOCYTES % (AUTO) 7.7 %; NEUTROPHILS # (AUTO) 4.4 10^3/uL (1.5-6.6); NEUTROPHILS % (AUTO) 51.8 %; PLT - PLATELET COUNT 213 10^3/uL (130-450); RED BLOOD COUNT 4.95 10^6/uL (4.20-5.40); RED CELL DISTRIBUTION WIDTH 12.4 % (12.0-15.0); WHITE BLOOD COUNT 8.4 x10^3/uL (4.8-10.8)
[2020-02-09 21:49] LABS: INR 0.9 (0.8-1.2); PT - PROTHROMBIN TIME 10.7 secs (9.9-12.6)
[2020-02-09 22:00] LABS: ALBUMIN 4.2 g/dL (3.2-5.5); ALBUMIN/GLOBULIN RATIO 1.1 (1.0-2.2); CALCIUM 9.3 mg/dL (8.5-10.3); CREATININE 1.7 mg/dL (0.4-1.0); TOTAL PROTEIN 7.9 g/dL (6.7-8.2)
[2020-02-09] MEDS ORDERED: IOVERSOL 320 100 ML VIAL IVP ONE (22:35)
--- NOTE | 2020-02-10 00:26 | ED Physician Documentation ---
History of Present Illness - Stated complaint Stated Complaint: BLOOD CLOT - Chief complaint Chief Complaint: General - History obtained from History obtained from: Patient - Additonal information Additional information: Patient sent to the emergency department for elevated d-dimer from her PCP's office. She has noticed some prominent veins in her lower legs, and has had chronic L upper chest pain which seemed worse 3 days ago, so PCP checked D- dimer, which was found to be over 600. Pt was called at home and told to come to the ED for further eval. Pt denies dyspnea at any time. She states she has had episodes of L chest "cramping" for years, and always has a dull ache in the area. Pt states this seemed somewhat worse a few days ago, but got better on its own that same day. No worsening since. No fevers or chills. No cough or sick contacts. No h/o DVT. No smoking. No other complaints at this time. Review of Systems Ten Systems: 10 systems reviewed and negative Constitutional: reports: Reviewed and negative Eyes: reports: Reviewed and negative Ears: reports: Reviewed and negative Nose: reports: Reviewed and negative Throat: reports: Reviewed and negative Cardiac: reports: Chest pain / pressure Respiratory: reports: Reviewed and negative GI: reports: Reviewed and negative : reports: Reviewed and negative Skin: reports: Reviewed and negative Musculoskeletal: reports: Reviewed and negative Neurologic: reports: Reviewed and negative Psychiatric: reports: Reviewed and negative Endocrine: reports: Reviewed and negative Immunocompromised: reports: Reviewed and negative PD PAST MEDICAL HISTORY - Past Medical History Past Medical History: Yes Cardiovascular: Hypertension, High cholesterol Respiratory: None Endocrine/Autoimmune: Type 2 diabetes GI: Ulcers 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 : None, Other HEENT: None, Other Psych: Depression Musculoskeletal: None, Osteoarthritis Derm: None - Past Surgical History Past Surgical History: Yes General: Appendectomy, Other HEENT: Cataracts - Present Medications Home Medications: Ambulatory Orders Medication Instructions Recorded Confirmed Aspirin [Aspir 81] 81 mg PO DAILY 08/24/13 02/04/18 Carvedilol 12.5 mg PO BID 08/24/13 02/04/18 Glipizide [Glipizide ER] 2.5 mg PO DAILY 02/02/18 02/04/18 Magnesium Oxide [Magnesium] 400 mg PO BID 02/02/18 02/03/18 [place]-3/Dha/Epa/Fish Oil [Fish Oil 1,000 mg PO BID 02/02/18 02/03/18 1,000 mg Softgel] Chlorthalidone 25 mg 10/07/19 Valsartan [Diovan] 160 mg PO 10/07/19 - Allergies Allergies/Adverse Reactions: Allergies Allergy/AdvReac Type Severity Reaction Status Date / Time amlodipine AdvReac Unknown Verified 02/09/20 21:07 simvastatin [From Zocor] AdvReac Unknown Verified 02/09/20 21:07 - Social History Does the pt smoke?: No Smoking Status: Never smoker Does the pt drink ETOH?: No Does the pt have substance abuse?: No - Immunizations Immunizations are current?: Yes - POLST Patient has POLST: No PD ED PE NORMAL - Vitals Vital signs reviewed: Yes - General General: Alert and 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, No acute distress, Well developed/nourished - HEENT HEENT: Atraumatic, PERRL, EOMI, Moist mucous membranes - Neck Neck: Supple, no meningeal sign - Cardiac Cardiac: RRR, No murmur, Strong equal pulses - Respiratory Respiratory: No respiratory distress, Clear bilaterally - Abdomen Abdomen: Soft, Non tender, Non distended - Derm Derm: Warm and dry - Extremities Extremities: No deformity, No edema, Other (Pt has thrombosed varicose veins in her L calf. Mild tenderness. No enlargement.) - Neuro 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 and 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, Other (grossly normal otherwise.) - Psych Psych: Normal mood, Normal affect Results - Vitals Vitals: Oxygen O2 Source Room air - Labs Labs: Laboratory Tests 02/09/20 02/09/20 02/09/20 21:36 21:36 21:36 WBC 8.4 RBC 4.95 Hgb 14.4 Hct 44.5 MCV 89.9 MCH 29.1 MCHC 32.4 RDW 12.4 Plt Count 213 MPV 8.7 Neut # (Auto) 4.4 Lymph # (Auto) 3.1 [place] # (Auto) 0.7 Eos # (Auto) 0.3 Baso # (Auto) 0.0 Absolute Nucleated RBC 0.00 Nucleated RBC % 0.0 PT 10.7 INR 0.9 Sodium 138 Potassium 3.8 Chloride 104 Carbon Dioxide 25 Anion Gap 9.0 BUN 22 H Creatinine 1.7 H Estimated GFR (MDRD) 29 L Glucose 115 H Calcium 9.3 Total Bilirubin 1.0 AST 21 ALT 19 Alkaline Phosphatase 68 Total Protein 7.9 Albumin 4.2 Globulin 3.7 Albumin/Globulin Ratio 1.1 Lipase 78 H - Rads (name of study) CXR Radiology: Prelim report reviewed, EMP read indepedently, See rad report (no a cute findings) venous US bilateral LE Radiology: Prelim report reviewed, See rad report (L greater saphenous clot; no DVT) PD MEDICAL DECISION MAKING - ED course Complexity details: reviewed old records, reviewed results, re-evaluated patient, considered differential, d/w patient, d/w family ED course: The pt was very well-appearing in the ED, and I felt the likelihood of PE was low, based on the pt's story. I did note what seemed to be thrombosed varicosities in the pt's L leg, and felt she should be worked up with US of the legs. This showed superficial clotting only. CXR showed some chronic findings, but nothing acute. Pt's likelihood of PE was very low at this point, and her GFR was too low to do a CTA with contrast. I d/w pt and family that pt's D- dimer is most likely elevated because of the extensive superficial clotting, and that there is no indication of a DVT or PE at this time. We have discussed that the pt's BP has been quite high here, and that she should talk about this with her PCP. We have discussed the need for follow-up and the usual indications for return. 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 This is most likely the cause of your elevated d-dimer (blood test). There is no blood clot in your deep veins. The chest pain you have been having on and off for an extended period of time, including the last couple of days, does not sound consistent with a blood clot in the lungs. Furthermore, clots in the superficial veins do not result in blood clots going to the lungs. Your kidney function is too slow tonight to do a CT scan of your chest. At this point in time, there is no indication that this test needs to be done. If your primary care physician wants to do a different kind of test to look further at your lungs, this made to be done as an outpatient. Your chest x-ray looks good. If you develop shortness of breath or worsening chest pain, please return to the emergency department. Discharge Date/Time: 02/10/20 00:39
[2020-02-10 00:40] VITALS: BP 210/88
--- NOTE | 2020-02-10 08:13 | Ultrasound Report ---
PROCEDURE: Duplex Ext Veins Bilateral INDICATIONS: ROXY ADAMS TECHNIQUE: Real-time imaging, as well as color and pulse Doppler interrogation, were performed of the deep veins of both legs from the inguinal ligament to the popliteal fossa. COMPARISON: None. FINDINGS: The deep veins are normally compressible, and free of intraluminal thrombus. Color and pu lse Doppler demonstrate normal phasic intravascular flow. There is normal augmentation response to d istal compression maneuver. Note is made of noncompressibility of the left greater saphenous superfi cial vein below the knee. IMPRESSION: No deep venous thrombosis found but there is superficial vein thrombosis involving the left greater s aphenous vein. Reviewed by: Rosas Kc MD on 02/10/2020 8:12 AM PDT Approved by: Rosas Kc MD on 02/10/2020 8:12 AM PDT Station ID: [id number]
--- NOTE | 2020-02-10 08:20 | XRAY Report ---
PROCEDURE: Chest 2 View X-Ray INDICATIONS: cough TECHNIQUE: 2 view(s) of the chest. COMPARISON: 10/07/2019 FINDINGS: Surgical changes and devices: None. Lungs and pleura: No pleural effusions or pneumothorax. Lungs demonstrate mildly prominent intersti tial markings, chronic. Mild bibasilar atelectatic changes. Mediastinum: Ectatic aortic arch. No central venous congestion. Heart size is normal. Bones and chest wall: No suspicious bony abnormalities. Soft tissues appear unremarkable. IMPRESSION: 1. Chronically coarse bilateral interstitial markings, chronic fibrosis or interstitial edema. 2. Minor bibasilar atelectasis, decreased compared to the prior study. 3. Concordant with the pulmonary report. Reviewed by: Sonja Dimas MD on 02/10/2020 8:18 AM PDT Approved by: Sonja Dimas MD on 02/10/2020 8:18 AM PDT Station ID: [id number]
== END 2020-02-10 00:39 | disposition home or self-care (01) ==
LOC: ED 20:57
DX: I82.812 Embolism and thrombosis of superficial veins of left lower extremity (principal); J98.11 Atelectasis; R07.89 Other chest pain; I10 Essential (primary) hypertension; E11.9 Type 2 diabetes mellitus without complications; Z79.82 Long term (current) use of aspirin; Z79.84 Long term (current) use of oral hypoglycemic drugs
CPT/HCPCS: 36415; 71046; 80053; 83690; 85025; 85610; 93970; 99284; 99285

== ENCOUNTER 2020-06-16 01:28 | Outpatient (CLI) | payer MEDICARE, MEDICAID | END 2020-06-16 01:29 | disposition critical access hospital (66) | LOC: EMS 01:28 | PROVIDERS: ATTEND Surgery | DX: R51.9 Headache, unspecified (principal); R42 Dizziness and giddiness | CPT/HCPCS: A0425; A0427 ==

== ENCOUNTER 2020-06-16 02:11 | Emergency (ER) | payer MEDICARE, MEDICAID ==
[2020-06-16] MEDS ORDERED: SODIUM CHLORIDE 0.9% 1,000 ML IV STA ×2 (02:35→03:39)
[2020-06-16] MEDS ORDERED: KETOROLAC 30 MG/ML VIAL IVP STA (02:35)
--- NOTE | 2020-06-16 02:38 | ED Physician Documentation ---
PD HPI HEADACHE - Stated complaint Stated Complaint: GALO - Chief complaint Chief Complaint: Heent - History obtained from History obtained from: Patient, EMS - History of Present Illness Timing - onset: Enter time (1800), Last night Timing - onset during: Rest Timing - duration: Hours Timing - details: Gradual onset, Still present Location: Front Quality: Throbbing Associated symptoms: Other (left nipple pain to palpation, elevated blood pres sure). No: Fever, Stiff neck, Nausea, Vomiting, Weakness, Numbness, Syncope, Seizure, Eye pain, Vision changes Improved by: Rest Worsened by: Light, Noise, Moving Contributing factors: Hypertension. No: Anticoagulated, Possible carbon monoxide, Recent illness, Trauma Similar symptoms before: No diagnosis Recently seen: Not recently seen - Additional information Additional information: 74-year-old female with a history of hypertension and diabetes is on hydrochlorothiazide and she has developed a headache in about 6 PM last night. She noted her blood pressure was elevated at the time and she also notes that when this happens she does have some pain if she pushes on her left nipple. She indicates that she has had this on and off through her life with pain when she pushes on her left nipple if she is sick.She indicates that she has been taking her blood pressure medications and she indicates that she has been urinating a lot. She does not check her blood sugar. Review of Systems Constitutional: denies: Fever Ears: denies: Ear pain Nose: denies: Rhinorrhea / runny nose, Congestion Throat: denies: Sore throat Cardiac: denies: Chest pain / pressure, Palpitations Respiratory: denies: Dyspnea, Cough GI: reports: Diarrhea (loose stool only). denies: Abdominal Pain, Nausea, Vomiting : reports: Frequency. denies: Dysuria Skin: denies: Rash Musculoskeletal: denies: Neck pain, Back pain, Extremity pain PD PAST MEDICAL HISTORY - Past Medical History Cardiovascular: Hypertension, High cholesterol Respiratory: None Endocrine/Autoimmune: Type 2 diabetes GI: Ulcers [employer]: None : None, Other HEENT: None, Other Psych: Depression Musculoskeletal: None, Osteoarthritis Derm: None - Past Surgical History Past Surgical History: Yes General: Appendectomy, Other HEENT: Cataracts - Present Medications Home Medications: Ambulatory Orders Medication Instructions Recorded Confirmed Aspirin [Aspir 81] 81 mg PO DAILY 08/24/13 02/04/18 Carvedilol 12.5 mg PO BID 08/24/13 02/04/18 Glipizide [Glipizide ER] 2.5 mg PO DAILY 02/02/18 02/04/18 Magnesium Oxide [Magnesium] 400 mg PO BID 02/02/18 02/03/18 Reading-3/Dha/Epa/Fish Oil [Fish Oil 1,000 mg PO BID 02/02/18 02/03/18 1,000 mg Softgel] Chlorthalidone 25 mg 10/07/19 Valsartan [Diovan] 160 mg PO 10/07/19 - Allergies Allergies/Adverse Reactions: Allergies Allergy/AdvReac Type Severity Reaction Status Date / Time amlodipine AdvReac Unknown Verified 06/16/20 02:20 simvastatin [From Zocor] AdvReac Unknown Verified 06/16/20 02:20 - Social History Does the pt smoke?: No Smoking Status: Never smoker Does the pt drink ETOH?: No Does the pt have substance abuse?: No - Immunizations Immunizations are current?: Yes - POLST Patient has POLST: No PD ED PE NORMAL - Vitals Vital signs reviewed: Yes - General General: Alert and 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, Well developed/nourished - HEENT HEENT: Atraumatic, PERRL, EOMI, Ears normal, Other (dry mucous membranes) - Neck Neck: Supple, no meningeal sign, No bony TTP - Cardiac Cardiac: RRR, No murmur - Respiratory Respiratory: No respiratory distress, Clear bilaterally - Abdomen Abdomen: Normal bowel sounds, Soft, Non tender, Non distended, No organomegaly - Back Back: No CVA TTP, No spinal TTP - Derm Derm: Normal color, Warm and dry, No rash - Extremities Extremities: No deformity, No edema - Neuro 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 and 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, 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, No motor deficit, No sensory deficit, Normal speech Eye Opening: Spontaneous Motor: Obeys Commands Verbal: Oriented GCS Score: 15 - Psych Psych: Normal mood, Normal affect Results - Vitals Vitals: Vital Signs - 24 hr 06/16/20 06/16/20 06/16/20 02:17 03:58 04:57 Temperature 37.3 C Heart Rate 70 68 61 Respiratory 17 18 18 Rate Blood Pressure 169/96 H 157/74 H O2 Saturation 99 100 100 06/16/20 06/16/20 05:06 06:11 Temperature Heart Rate 60 Respiratory 16 16 Rate Blood Pressure 97/70 O2 Saturation 100 Oxygen O2 Source Room air - EKG (time done) 0254 Rate: Rate (enter#) (57) Rhythm: NSR Intervals: Normal RI Ischemia: Normal ST segments, Non specific changes (flat T's anterior) Compare to prior EKG: Changed from prior EKG (SPT 02-18-2020 the flattened T waves anteriorly are new) Computer interpretation: Disagree with computer (The computer reads RI as .5 and the value should be 1.0. The computer reads ST depression and this is not seen in any lead. ) - Labs Labs: Laboratory Tests 06/16/20 06/16/20 06/16/20 02:49 02:49 02:49 WBC 7.7 RBC 4.76 Hgb 13.9 Hct 42.0 MCV 88.2 MCH 29.2 MCHC 33.1 RDW 12.2 Plt Count 187 MPV 9.0 Neut # (Auto) 4.1 Lymph # (Auto) 2.7 [place] # (Auto) 0.5 Eos # (Auto) 0.4 Baso # (Auto) 0.1 Absolute Nucleated RBC 0.00 Nucleated RBC % 0.0 Sodium 131 L Potassium 2.7 L Chloride 91 L Carbon Dioxide 25 Anion Gap 15.0 H BUN 21 H Creatinine 1.3 H Estimated GFR (MDRD) 40 L Glucose 152 H Calcium 8.9 Total Bilirubin 1.1 H AST 21 ALT 18 Alkaline Phosphatase 59 Troponin I High Sens 8.5 Total Protein 7.1 Albumin 3.6 Globulin 3.5 Albumin/Globulin Ratio 1.0 Lipase 82 H Urine Color Urine Clarity Urine pH Ur Specific [place] Urine Protein Urine Glucose (UA) Urine Ketones Urine Occult Blood Urine Nitrite Urine Bilirubin Urine Urobilinogen Ur Leukocyte Esterase Urine RBC Urine WBC Ur Squamous Epith Cells Urine Bacteria Ur Microscopic Review Urine Culture Comments 06/16/20 03:25 WBC RBC Hgb Hct MCV MCH MCHC RDW Plt Count MPV Neut # (Auto) Lymph # (Auto) [place] # (Auto) Eos # (Auto) Baso # (Auto) Absolute Nucleated RBC Nucleated RBC % Sodium Potassium Chloride Carbon Dioxide Anion Gap BUN Creatinine Estimated GFR (MDRD) Glucose Calcium Total Bilirubin AST ALT Alkaline Phosphatase Troponin I High Sens Total Protein Albumin Globulin Albumin/Globulin Ratio Lipase Urine Color YELLOW Urine Clarity CLEAR Urine pH 7.0 Ur Specific [place] <=1.005 Urine Protein NEGATIVE Urine Glucose (UA) NEGATIVE Urine Ketones NEGATIVE Urine Occult Blood MODERATE H Urine Nitrite NEGATIVE Urine Bilirubin NEGATIVE Urine Urobilinogen 0.2 (NORMAL) Ur Leukocyte Esterase NEGATIVE Urine RBC 6-10 H Urine WBC 0-3 Ur Squamous Epith Cells MANY Squamous H Urine Bacteria Rare Ur Microscopic Review INDICATED Urine Culture Comments NOT INDICATED - Rads (name of study) CT head without Radiology: Prelim report reviewed (Impression: No acute intracranial findings.), EMP read indepedently, See rad report Procedures - IVC sono (time) 0230 Bedside IVC sono: IVC measures (cm) (0.72), IVC collapsed c insp (cm) (complete), Dehydration (est 2+ liters deficit) PD MEDICAL DECISION MAKING - ED course Complexity details: reviewed old records, reviewed results, re-evaluated patient, considered differential, d/w patient ED course: 74-year-old female with a history of hypertension and diabetes comes emergency department with a headache today she is found to have significant dehydration and she is hypokalemic as well. She is administered 2 liters intravenous saline, Toradol and potassium 40meq PO and 10 IV. She reports improvement but not resolution of her headache. Departure - Departure Disposition: 01 Home, Self Care Clinical Impression: Hypokalemia, Dehydration Headache Qualifiers: Headache type: unspecified Headache chronicity pattern: acute headache Intractability: not intractable Qualified Code(s): R51.9 - Headache, unspecified Condition: Stable Instructions: ED Dehydration, ED Potassium Deficiency Follow-Up: U[facility] [Provider Group] Discharge Date/Time: 06/16/20 06:24
[2020-06-16 02:59] LABS: BASOPHILS # (AUTO) 0.1 10^3/uL (0.0-0.1); BASOPHILS % (AUTO) 0.6 %; EOSINOPHILS # (AUTO) 0.4 10^3/uL (0.0-0.7); EOSINOPHILS % (AUTO) 4.5 %; HGB - HEMOGLOBIN 13.9 g/dL (12.0-16.0); LYMPHOCYTES # (AUTO) 2.7 10^3/uL (1.5-3.5); LYMPHOCYTES % (AUTO) 34.5 %; MEAN CORPUSCULAR HEMOGLOBIN 29.2 pg (27.0-31.0); MEAN CORPUSCULAR HGB CONC 33.1 g/dL (32.0-36.0); MEAN CORPUSCULAR VOLUME 88.2 fL (81.0-99.0); MONOCYTES # (AUTO) 0.5 10^3/uL (0.0-1.0); MONOCYTES % (AUTO) 6.7 %; NEUTROPHILS # (AUTO) 4.1 10^3/uL (1.5-6.6); NEUTROPHILS % (AUTO) 53.2 %; PLT - PLATELET COUNT 187 10^3/uL (130-450); RED BLOOD COUNT 4.76 10^6/uL (4.20-5.40); RED CELL DISTRIBUTION WIDTH 12.2 % (12.0-15.0); WHITE BLOOD COUNT 7.7 x10^3/uL (4.8-10.8)
[2020-06-16 03:12] LABS: ALBUMIN 3.6 g/dL (3.2-5.5); BILIRUBIN,TOTAL 1.1 mg/dL (0.2-1.0); CALCIUM 8.9 mg/dL (8.5-10.3); CREATININE 1.3 mg/dL (0.4-1.0); TOTAL PROTEIN 7.1 g/dL (6.7-8.2)
[2020-06-16 03:28] LABS: BILIRUBIN,URINE NEGATIVE (NEGATIVE); GLUCOSE, URINE (UA) NEGATIVE (NEGATIVE); KETONES,URINE (UA) NEGATIVE (NEGATIVE); LEUKOCYTE ESTERASE, URINE NEGATIVE (NEGATIVE); NITRITE,URINE NEGATIVE (NEGATIVE); OCCULT BLOOD,URINE MODERATE (NEGATIVE); PROTEIN,URINE NEGATIVE (NEGATIVE); UROBILINOGEN,URINE 0.2 (NORMAL) E.U./dL (NORMAL)
[2020-06-16 03:29] LABS: CLARITY,URINE CLEAR (CLEAR)
[2020-06-16 03:33] LABS: BACTERIA,URINE Rare /HPF (None Seen); SQUAMOUS EPITHELIAL CELL,UR MANY Squamous (<= Few)
[2020-06-16] MEDS ORDERED: POTASSIUM CHLORIDE 20 MEQ TABLET PO STA (03:37)
[2020-06-16] MEDS ORDERED: POTASSIUM CHLOR 10 MEQ/100 ML 10 MEQ/100 ML BAG IV STA (03:39)
[2020-06-16] MEDS ORDERED: POTASSIUM CHLORIDE 20 MEQ/15 ML UDC PO STA (03:47)
[2020-06-16 06:11] VITALS: BP 97/70
--- NOTE | 2020-06-16 07:52 | CT Report ---
PROCEDURE: HEAD WO INDICATIONS: severe headache TECHNIQUE: Noncontrast 4.5 mm thick angled axial sections acquired from the foramen magnum to the vertex. For r adiation dose reduction, the following was used: automated exposure control, adjustment of mA and/or kV according to patient size. COMPARISON: 10/07/2019. FINDINGS: Image quality: Excellent. CSF spaces: Basal cisterns are patent. No extra-axial fluid collections. Ventricles are normal in size and shape. Brain: No midline shift. No intracranial masses or hemorrhage. Moreno-white matter interface is norm al. Stable age-appropriate volume loss and mild small vessel ischemic change. Skull and face: Calvarium and visualized facial bones are intact, without suspicious lesions. Sinuses: Visualized sinuses and mastoids are clear. IMPRESSION: 1. Stable age appropriate volume loss and small vessel ischemic change. 2. No evidence acute stroke, hemorrhage, or mass. A preliminary report with the above findings was provided at the time of the study by [facility]. Reviewed by: Syd Mijares MD on 06/16/2020 7:51 AM PST Approved by: Syd Mijares MD on 06/16/2020 7:51 AM PST Station ID: [id number]
== END 2020-06-16 06:24 | disposition home or self-care (01) ==
LOC: EDBD → EDUNIT# → ED 02:11
DX: E86.0 Dehydration (principal); E87.6 Hypokalemia; R51.9 Headache, unspecified; I10 Essential (primary) hypertension; E11.9 Type 2 diabetes mellitus without complications; Z79.84 Long term (current) use of oral hypoglycemic drugs; Z79.82 Long term (current) use of aspirin
CPT/HCPCS: 36415; 70450; 80053; 81001; 83690; 84484; 85025; 93005; 96361; 96365; 96375; 99284; A9270; 81003; 87086

== ENCOUNTER 2020-07-17 08:00 | Outpatient (CLI) | payer MEDICARE, MEDICAID ==
[2020-07-17 13:37] LABS: ESTIMATED AVERAGE GLUCOSE 177 mg/dL (70-100); HEMOGLOBIN A1c% 7.8 % (4.27-6.07)
[2020-07-17 13:59] LABS: CALCIUM 9.2 mg/dL (8.5-10.3); CREATININE 1.3 mg/dL (0.4-1.0); POTASSIUM 2.8 mmol/L (3.5-5.0)
[2020-07-17 14:13] LABS: CREATININE,URINE 83.9 mg/dL; PROTEIN/CREATININE RATIO,URINE 0.1 (<=0.2)
== END 2020-07-17 23:59 | disposition home or self-care (01) ==
LOC: LAB.WCP 08:00
PROVIDERS: ATTEND Internal Medicine Nephrology
DX: N05.9 Unspecified nephritic syndrome with unspecified morphologic changes (principal); E11.9 Type 2 diabetes mellitus without complications; R80.9 Proteinuria, unspecified
CPT/HCPCS: 36415; 80048; 82570; 83036; 84156

== ENCOUNTER 2020-08-09 09:44 | Outpatient (CLI) | payer MEDICARE, MEDICAID ==
[2020-08-09 12:37] LABS: CALCIUM 9.1 mg/dL (8.5-10.3); CREATININE 1.3 mg/dL (0.4-1.0)
== END 2020-08-09 23:59 | disposition home or self-care (01) ==
LOC: LAB.WCP 09:44
PROVIDERS: ATTEND Internal Medicine Nephrology
DX: N05.9 Unspecified nephritic syndrome with unspecified morphologic changes (principal)
CPT/HCPCS: 36415; 80048

== ENCOUNTER 2020-09-26 08:00 | Outpatient (CLI) | payer MEDICARE, MEDICAID ==
[2020-09-26 12:47] LABS: CALCIUM 9.1 mg/dL (8.5-10.3); CREATININE 1.3 mg/dL (0.4-1.0); POTASSIUM 3.9 mmol/L (3.5-5.0); URIC ACID 7.7 mg/dL (2.6-7.2)
[2020-09-26 12:54] LABS: ESTIMATED AVERAGE GLUCOSE 160 mg/dL (70-100); HEMOGLOBIN A1c% 7.2 % (4.27-6.07)
== END 2020-09-26 23:59 | disposition home or self-care (01) ==
LOC: LAB.WCP 08:00
PROVIDERS: ATTEND Nurse Practitioner Family
DX: E11.9 Type 2 diabetes mellitus without complications (principal); M79.676 Pain in unspecified toe(s)
CPT/HCPCS: 36415; 80048; 83036; 84550; 85651

== ENCOUNTER 2020-10-06 17:36 | Emergency (ER) | payer MEDICARE, MEDICAID ==
[2020-10-06 17:58] LABS: BASOPHILS % (AUTO) 0.3 %; EOSINOPHILS # (AUTO) 0.2 10^3/uL (0.0-0.7); EOSINOPHILS % (AUTO) 2.3 %; HCT - HEMATOCRIT 41.5 % (37.0-47.0); HGB - HEMOGLOBIN 13.7 g/dL (12.0-16.0); LYMPHOCYTES # (AUTO) 2.2 10^3/uL (1.5-3.5); LYMPHOCYTES % (AUTO) 22.5 %; MEAN CORPUSCULAR HEMOGLOBIN 29.4 pg (27.0-31.0); MEAN CORPUSCULAR VOLUME 89.1 fL (81.0-99.0); MEAN PLATELET VOLUME 8.7 fL (7.9-10.8); MONOCYTES # (AUTO) 0.5 10^3/uL (0.0-1.0); MONOCYTES % (AUTO) 5.2 %; NEUTROPHILS # (AUTO) 6.6 10^3/uL (1.5-6.6); NEUTROPHILS % (AUTO) 69.1 %; PLT - PLATELET COUNT 280 10^3/uL (130-450); RED BLOOD COUNT 4.66 10^6/uL (4.20-5.40); RED CELL DISTRIBUTION WIDTH 12.9 % (12.0-15.0); WHITE BLOOD COUNT 9.6 x10^3/uL (4.8-10.8)
[2020-10-06 18:11] LABS: ALBUMIN 3.7 g/dL (3.2-5.5); ALBUMIN/GLOBULIN RATIO 0.9 (1.0-2.2); BILIRUBIN,TOTAL 0.7 mg/dL (0.2-1.0); CALCIUM 8.9 mg/dL (8.5-10.3); CREATININE 1.3 mg/dL (0.4-1.0); POTASSIUM 3.4 mmol/L (3.5-5.0); TOTAL PROTEIN 7.9 g/dL (6.7-8.2)
--- NOTE | 2020-10-06 18:34 | ED Physician Documentation ---
History of Present Illness - Stated complaint Stated Complaint: HIGH BP, GALO - Chief complaint Chief Complaint: Neuro - History obtained from History obtained from: Patient, Family - History of Present Illness Timing: Today Pain level max: 10 Pain level now: 10 - Additonal information Additional information: 75-year-old female with a gradual onset headache today. This is not uncommon for her. Started this morning and gradually worsened throughout the day. They took her blood pressure noted to be high. This is common for her as well. No trauma. She did have vomiting and light sensitivity earlier. No chest pain. No shortness of breath. No neck or back pain. Has not taken anything for the headache. Review of Systems Ten Systems: 10 systems reviewed and negative Constitutional: denies: Fever, Chills Eyes: reports: Photophobia Ears: denies: Ear pain Nose: denies: Congestion Throat: denies: Sore throat Cardiac: denies: Chest pain / pressure, Palpitations Respiratory: denies: Dyspnea, Cough GI: reports: Nausea, Vomiting. denies: Abdominal Pain Skin: denies: Rash Musculoskeletal: denies: Neck pain, Back pain Neurologic: reports: Headache. 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 : None, Other HEENT: None, Other Psych: Depression Musculoskeletal: None, Osteoarthritis Derm: None - Past Surgical History Past Surgical History: Yes General: Appendectomy, Other HEENT: Cataracts - Present Medications Home Medications: Ambulatory Orders Medication Instructions Recorded Confirmed Aspirin [Aspir 81] 81 mg PO DAILY 08/24/13 02/04/18 Carvedilol 12.5 mg PO BID 08/24/13 02/04/18 Glipizide [Glipizide ER] 2.5 mg PO DAILY 02/02/18 02/04/18 Magnesium Oxide [Magnesium] 400 mg PO BID 02/02/18 02/03/18 [place]-3/Dha/Epa/Fish Oil [Fish Oil 1,000 mg PO BID 02/02/18 02/03/18 1,000 mg Softgel] Chlorthalidone 25 mg 10/07/19 Valsartan [Diovan] 160 mg PO 10/07/19 - Allergies Allergies/Adverse Reactions: Allergies Allergy/AdvReac Type Severity Reaction Status Date / Time amlodipine AdvReac Unknown Verified 10/06/20 17:45 simvastatin [From Zocor] AdvReac Unknown Verified 10/06/20 17:45 - Social History Does the pt smoke?: No Smoking Status: Never smoker Does the pt drink ETOH?: No Does the pt have substance abuse?: No - Immunizations Immunizations are current?: Yes - POLST Patient has POLST: No PD ED PE NORMAL - Vitals Vital signs reviewed: Yes - General General: Alert and 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, Well developed/nourished, Other (Appears uncomfortable. 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, No motor deficit, No sensory deficit, Normal speech Eye Opening: Spontaneous Motor: Obeys Commands Verbal: Oriented GCS Score: 15 - Psych Psych: Normal mood, Normal affect Results - Vitals Vitals: Vital Signs - 24 hr 10/06/20 10/06/20 10/06/20 17:42 17:57 18:15 Temperature 35.7 C L Heart Rate 66 60 59 L Respiratory 24 17 14 Rate Blood Pressure 264/109 H 224/95 H 200/91 H O2 Saturation 97 99 95 10/06/20 10/06/20 10/06/20 19:00 19:30 19:58 Temperature 36.1 C L 36.1 C L Heart Rate 65 58 L 67 Respiratory 15 20 16 Rate Blood Pressure 190/91 H 197/87 H 197/89 H O2 Saturation 96 100 100 10/06/20 10/06/20 10/06/20 20:00 20:30 20:53 Temperature 36.1 C L 36.2 C L 36.2 C L Heart Rate 70 71 74 Respiratory 16 18 19 Rate Blood Pressure 186/73 H 162/68 H 168/72 H O2 Saturation 98 98 97 10/06/20 10/06/20 10/06/20 21:00 21:02 21:13 Temperature 36.2 C L 36.2 C L Heart Rate 72 78 78 Respiratory 18 17 17 Rate Blood Pressure 166/74 H 168/72 H 168/72 H O2 Saturation 98 98 98 Oxygen O2 Source Room air - Labs Labs: Laboratory Tests 10/06/20 10/06/20 10/06/20 17:53 17:53 19:00 WBC 9.6 RBC 4.66 Hgb 13.7 Hct 41.5 MCV 89.1 MCH 29.4 MCHC 33.0 RDW 12.9 Plt Count 280 MPV 8.7 Neut # (Auto) 6.6 Lymph # (Auto) 2.2 [place] # (Auto) 0.5 Eos # (Auto) 0.2 Baso # (Auto) 0.0 Absolute Nucleated RBC 0.00 Nucleated RBC % 0.0 Sodium 135 Potassium 3.4 L Chloride 101 Carbon Dioxide 24 Anion Gap 10.0 BUN 22 H Creatinine 1.3 H Estimated GFR (MDRD) 40 L Glucose 202 H Calcium 8.9 Total Bilirubin 0.7 AST 16 ALT 25 Alkaline Phosphatase 104 Total Protein 7.9 Albumin 3.7 Globulin 4.2 Albumin/Globulin Ratio 0.9 L Lipase 72 H Urine Color YELLOW Urine Clarity HAZY Urine pH 7.5 Ur Specific [place] 1.015 Urine Protein TRACE Urine Glucose (UA) 100 H Urine Ketones NEGATIVE Urine Occult Blood SMALL H Urine Nitrite NEGATIVE Urine Bilirubin NEGATIVE Urine Urobilinogen 0.2 (NORMAL) Ur Leukocyte Esterase NEGATIVE Urine RBC 6-10 H Urine WBC 0-3 Ur Squamous Epith Cells FEW Squamous Urine Bacteria Many H Ur Microscopic Review INDICATED Urine Culture Comments INDICATED - Rads (name of study) Head CT Radiology: Prelim report reviewed, EMP read contemporaneously, See rad report (No acute intracranial abnormality) PD MEDICAL DECISION MAKING - ED course Complexity details: reviewed results, re-evaluated patient, considered differential, d/w patient, d/w family ED course: 75-year-old female with hypertension and chronic headache. Headache resolved with Toradol. Blood pressure improved with hydralazine. No evidence of acute endorgan damage. Normal head CT. Normal neurological exam. We will have her follow-up with her doctor for further care. Patient counseled regarding signs and symptoms for which I believe and urgent re-evaluation would be necessary. Patient with good understanding of and agreement to plan and is comfortable going home at this time This document was made in part using voice recognition software. While efforts are made to proofread this document, sound alike and grammatical errors may occur. Departure - Departure Disposition: 01 Home, Self Care Clinical Impression: Hypertension Qualifiers: Hypertension type: unspecified Qualified Code(s): I10 - Essential (primary) hypertension Headache Qualifiers: Headache type: unspecified Headache chronicity pattern: acute headache Intractability: not intractable Qualified Code(s): R51.9 - Headache, unspecified Condition: Good Instructions: ED Cephalgia Unspecified, ED HTN Established Follow-Up: ANTHONY CONTRERAS, MSN, [employer] [Primary Care Provider] - Within 1 week Comments: Follow-up with your doctor for further care. Continue your blood pressure medications at home. Return if you worsen. Your head CT does not show any acute abnormalities tonight. Discharge Date/Time: 10/06/20 21:13
--- NOTE | 2020-10-06 18:34 | CT Report ---
PROCEDURE: HEAD WO INDICATIONS: GALO, hypertension TECHNIQUE: Noncontrast 4.5 mm thick angled axial sections acquired from the foramen magnum to the vertex. For r adiation dose reduction, the following was used: automated exposure control, adjustment of mA and/or kV according to patient size. COMPARISON: 06/16/2020 FINDINGS: Image quality: Excellent. CSF spaces: Basal cisterns are patent. No extra-axial fluid collections. Ventricles are normal in size and shape. Brain: No midline shift. No intracranial masses or hemorrhage. Moreno-white matter interface is norm al. Skull and face: Calvarium and visualized facial bones are intact, without suspicious lesions. Sinuses: Visualized sinuses and mastoids are clear. IMPRESSION: No acute intracranial finding. Reviewed by: Jung Armstrong MD on 10/06/2020 6:33 PM PDT Approved by: Jung Armstrong MD on 10/06/2020 6:33 PM PDT Station ID: [id number]
[2020-10-06] MEDS ORDERED: LABETALOL 20 MG/4 ML SYRINGE IVP STA (18:36)
[2020-10-06] MEDS ORDERED: KETOROLAC 30 MG/ML VIAL IVP STA (18:36)
[2020-10-06 19:11] LABS: BILIRUBIN,URINE NEGATIVE (NEGATIVE); GLUCOSE, URINE (UA) 100 mg/dL (NEGATIVE); KETONES,URINE (UA) NEGATIVE (NEGATIVE); LEUKOCYTE ESTERASE, URINE NEGATIVE (NEGATIVE); NITRITE,URINE NEGATIVE (NEGATIVE); OCCULT BLOOD,URINE SMALL (NEGATIVE); PH,URINE 7.5 PH (5.0-7.5); PROTEIN,URINE TRACE mg/dL (NEGATIVE); UROBILINOGEN,URINE 0.2 (NORMAL) E.U./dL (NORMAL)
[2020-10-06 19:13] LABS: CLARITY,URINE HAZY (CLEAR)
[2020-10-06 19:29] LABS: BACTERIA,URINE Many /HPF (None Seen); SQUAMOUS EPITHELIAL CELL,UR FEW Squamous (<= Few); WBC,URINE 0-3 /HPF (0-5)
[2020-10-06] MEDS ORDERED: hydrALAZINE INJ 20 MG/ML VIAL IVP STA (20:04)
[2020-10-06 20:54] VITALS: BP 168/72
== END 2020-10-06 21:13 | disposition home or self-care (01) ==
LOC: ED 17:36
DX: I10 Essential (primary) hypertension (principal); R51.9 Headache, unspecified; E11.9 Type 2 diabetes mellitus without complications; Z79.84 Long term (current) use of oral hypoglycemic drugs; Z79.82 Long term (current) use of aspirin
CPT/HCPCS: 36415; 80053; 81001; 81003; 83690; 85025; 87077; 87086; 87181; 96374; 96375; 99284

== ENCOUNTER 2020-10-22 08:51 | Outpatient (CLI) | payer MEDICARE, MEDICAID ==
[2020-10-22 13:13] LABS: ALBUMIN 3.8 g/dL (3.2-5.5); BILIRUBIN,TOTAL 0.6 mg/dL (0.2-1.0); CALCIUM 9.3 mg/dL (8.5-10.3); CREATININE 1.4 mg/dL (0.4-1.0); POTASSIUM 3.5 mmol/L (3.5-5.0); TOTAL PROTEIN 7.5 g/dL (6.7-8.2)
[2020-10-22 13:28] LABS: ESTIMATED AVERAGE GLUCOSE 171 mg/dL (70-100); HEMOGLOBIN A1c% 7.6 % (4.27-6.07)
[2020-10-22 13:40] LABS: CREATININE,URINE 66.3 mg/dL; MICROALBUM/CREATININE RATIO,UR 7.5 ug/mg (<30.0); MICROALBUMIN,URINE 0.5 mg/dL (0-300.0)
== END 2020-10-22 23:59 | disposition home or self-care (01) ==
LOC: LAB.WCP 08:51
PROVIDERS: ATTEND Nurse Practitioner Family
DX: E87.1 Hypo-osmolality and hyponatremia (principal); E87.6 Hypokalemia; E11.9 Type 2 diabetes mellitus without complications
CPT/HCPCS: 36415; 80053; 82043; 82570; 83036

== ENCOUNTER 2021-01-31 08:33 | Outpatient (CLI) | payer MEDICARE, MEDICAID ==
[2021-01-31 11:42] LABS: CREATININE,URINE 145.7 mg/dL; MICROALBUM/CREATININE RATIO,UR 6.2 ug/mg (<30.0); MICROALBUMIN,URINE 0.9 mg/dL (0-300.0)
[2021-01-31 11:58] LABS: CALCIUM 9.6 mg/dL (8.5-10.3); CREATININE 1.4 mg/dL (0.4-1.0); POTASSIUM 4.1 mmol/L (3.5-5.0)
[2021-01-31 12:17] LABS: ESTIMATED AVERAGE GLUCOSE 174 mg/dL (70-100); HEMOGLOBIN A1c% 7.7 % (4.27-6.07)
== END 2021-01-31 23:59 | disposition home or self-care (01) ==
LOC: LAB.WCP 08:33
PROVIDERS: ATTEND Family Medicine
DX: E11.9 Type 2 diabetes mellitus without complications (principal)
CPT/HCPCS: 36415; 80048; 82043; 82570; 83036

== ENCOUNTER 2021-06-11 08:00 | Outpatient (CLI) | payer MEDICARE, MEDICAID ==
[2021-06-11 21:18] LABS: BASOPHILS % (AUTO) 0.5 %; EOSINOPHILS # (AUTO) 0.2 10^3/uL (0.0-0.7); EOSINOPHILS % (AUTO) 2.6 %; HCT - HEMATOCRIT 42.2 % (37.0-47.0); LYMPHOCYTES # (AUTO) 3.2 10^3/uL (1.5-3.5); LYMPHOCYTES % (AUTO) 44.3 %; MEAN CORPUSCULAR HEMOGLOBIN 29.8 pg (27.0-31.0); MEAN CORPUSCULAR HGB CONC 33.2 g/dL (32.0-36.0); MEAN CORPUSCULAR VOLUME 89.8 fL (81.0-99.0); MEAN PLATELET VOLUME 9.8 fL (7.9-10.8); MONOCYTES # (AUTO) 0.5 10^3/uL (0.0-1.0); MONOCYTES % (AUTO) 7.1 %; NEUTROPHILS # (AUTO) 3.3 10^3/uL (1.5-6.6); NEUTROPHILS % (AUTO) 45.2 %; PLT - PLATELET COUNT 212 10^3/uL (130-450); RED CELL DISTRIBUTION WIDTH 12.5 % (12.0-15.0); WHITE BLOOD COUNT 7.3 x10^3/uL (4.8-10.8)
[2021-06-11 21:35] LABS: ALBUMIN 3.9 g/dL (3.2-5.5); ALBUMIN/GLOBULIN RATIO 1.1 (1.0-2.2); ALKALINE PHOSPHATASE 58 IU/L (42-121); ALT ALANINE AMINOTRANSFERASE 17 IU/L (10-60); AST ASPARTATE AMINOTRANSFERASE 23 IU/L (10-42); BILIRUBIN,TOTAL 0.7 mg/dL (0.2-1.0); BUN - BLOOD UREA NITROGEN 30 mg/dL (6-20); CALCIUM 9.3 mg/dL (8.5-10.3); CARBON DIOXIDE - CO2 28 mmol/L (21-32); CHLORIDE 97 mmol/L (101-111); CHOL/HDL RATIO 3.6 (<4.4); CHOLESTEROL 215 mg/dL; CREATININE 1.5 mg/dL (0.4-1.0); GFR - MDRD 34 (>89); GLUCOSE 163 mg/dL (70-100); HDL CHOLESTEROL 60 mg/dL; LDL CHOLESTEROL,CALCULATED 112 mg/dL; LDL/HDL RATIO 1.9 (<4.4); POTASSIUM 3.2 mmol/L (3.5-5.0); SODIUM 135 mmol/L (135-145); TOTAL PROTEIN 7.5 g/dL (6.7-8.2); TRIGLYCERIDES 213 mg/dL; VLDL CHOLESTEROL 43 mg/dL
[2021-06-11 21:40] LABS: CREATININE,URINE 35.1 mg/dL; MICROALBUM/CREATININE RATIO,UR 5.7 ug/mg (<30.0); MICROALBUMIN,URINE 0.2 mg/dL (0-300.0)
[2021-06-11 21:47] LABS: ESTIMATED AVERAGE GLUCOSE 180 mg/dL (70-100); HEMOGLOBIN A1c% 7.9 % (4.27-6.07)
== END 2021-06-11 23:59 | disposition home or self-care (01) ==
LOC: LAB.WCP 08:00
PROVIDERS: ATTEND Family Medicine
DX: E11.9 Type 2 diabetes mellitus without complications (principal)
CPT/HCPCS: 36415; 80053; 80061; 82043; 82570; 83036; 83721; 85025

== ENCOUNTER 2021-09-26 11:55 | Outpatient (CLI) | payer MEDICARE, MEDICAID ==
[2021-09-26 18:31] LABS: CALCIUM 9.6 mg/dL (8.5-10.3); CREATININE 1.4 mg/dL (0.4-1.0); POTASSIUM 3.7 mmol/L (3.5-5.0)
[2021-09-26 19:13] LABS: CREATININE,URINE 25.4 mg/dL
[2021-09-26 19:14] LABS: TOTAL PROTEIN,URINE TIMED < 6 mg/dL
== END 2021-09-26 11:56 | disposition home or self-care (01) ==
LOC: LAB.N 11:55
PROVIDERS: ATTEND Internal Medicine Nephrology
DX: N05.9 Unspecified nephritic syndrome with unspecified morphologic changes (principal); R80.9 Proteinuria, unspecified
CPT/HCPCS: 36415; 80048; 82570; 84156

== ENCOUNTER 2021-11-28 08:33 | Outpatient (CLI) | payer MEDICARE, MEDICAID ==
[2021-11-28 12:18] LABS: BUN - BLOOD UREA NITROGEN 18 mg/dL (6-20); CALCIUM 9.1 mg/dL (8.5-10.3); CARBON DIOXIDE - CO2 30 mmol/L (21-32); CHLORIDE 96 mmol/L (101-111); CHOL/HDL RATIO 3.4 (<4.4); CHOLESTEROL 210 mg/dL; CREATININE 1.3 mg/dL (0.4-1.0); GFR - MDRD 40 (>89); GLUCOSE 174 mg/dL (70-100); HDL CHOLESTEROL 61 mg/dL; LDL CHOLESTEROL,CALCULATED 115 mg/dL; LDL/HDL RATIO 1.9 (<4.4); POTASSIUM 3.3 mmol/L (3.5-5.0); SODIUM 135 mmol/L (135-145); TRIGLYCERIDES 172 mg/dL; VLDL CHOLESTEROL 34 mg/dL
[2021-11-28 14:07] LABS: ESTIMATED AVERAGE GLUCOSE 192 mg/dL (70-100); HEMOGLOBIN A1c% 8.3 % (4.27-6.07)
== END 2021-11-28 08:34 | disposition home or self-care (01) ==
LOC: LAB.N 08:33
PROVIDERS: ATTEND Internal Medicine Nephrology
DX: N05.9 Unspecified nephritic syndrome with unspecified morphologic changes (principal); E11.9 Type 2 diabetes mellitus without complications; E78.5 Hyperlipidemia, unspecified
CPT/HCPCS: 36415; 80048; 80061; 83036; 83721

== ENCOUNTER 2022-02-11 08:08 | Outpatient (CLI) | payer MEDICARE, MEDICAID ==
[2022-02-11 12:30] LABS: CALCIUM 9.6 mg/dL (8.5-10.3); CREATININE 1.2 mg/dL (0.4-1.0); POTASSIUM 3.8 mmol/L (3.5-5.0)
[2022-02-11 13:01] LABS: ESTIMATED AVERAGE GLUCOSE 177 mg/dL (70-100); HEMOGLOBIN A1c% 7.8 % (4.27-6.07)
== END 2022-02-11 08:09 | disposition home or self-care (01) ==
LOC: LAB.N 08:08
PROVIDERS: ATTEND Internal Medicine Nephrology
DX: N05.9 Unspecified nephritic syndrome with unspecified morphologic changes (principal); E11.9 Type 2 diabetes mellitus without complications
CPT/HCPCS: 36415; 80048; 83036

== ENCOUNTER 2022-07-16 09:11 | Outpatient (CLI) | payer MEDICARE, MEDICAID ==
[2022-07-16 19:41] LABS: BASOPHILS # (AUTO) 0.1 10^3/uL (0.0-0.1); BASOPHILS % (AUTO) 0.8 %; EOSINOPHILS # (AUTO) 0.2 10^3/uL (0.0-0.7); EOSINOPHILS % (AUTO) 3.6 %; HCT - HEMATOCRIT 45.2 % (37.0-47.0); HGB - HEMOGLOBIN 14.1 g/dL (12.0-16.0); LYMPHOCYTES # (AUTO) 2.4 10^3/uL (1.5-3.5); LYMPHOCYTES % (AUTO) 39.4 %; MEAN CORPUSCULAR HEMOGLOBIN 28.3 pg (27.0-31.0); MEAN CORPUSCULAR HGB CONC 31.2 g/dL (32.0-36.0); MEAN CORPUSCULAR VOLUME 90.8 fL (81.0-99.0); MEAN PLATELET VOLUME 9.6 fL (7.9-10.8); MONOCYTES # (AUTO) 0.4 10^3/uL (0.0-1.0); MONOCYTES % (AUTO) 6.7 %; NEUTROPHILS % (AUTO) 49.2 %; PLT - PLATELET COUNT 248 10^3/uL (130-450); RED BLOOD COUNT 4.98 10^6/uL (4.20-5.40); RED CELL DISTRIBUTION WIDTH 13.4 % (12.0-15.0); WHITE BLOOD COUNT 6.1 x10^3/uL (4.8-10.8)
[2022-07-16 20:20] LABS: THYROID STIMULATING HORMONE 10.61 uIU/mL (0.34-5.60)
[2022-07-16 20:30] LABS: ALBUMIN 4.1 g/dL (3.2-5.5); ALBUMIN/GLOBULIN RATIO 1.1 (1.0-2.2); ALKALINE PHOSPHATASE 51 IU/L (42-121); ALT ALANINE AMINOTRANSFERASE 18 IU/L (10-60); AST ASPARTATE AMINOTRANSFERASE 21 IU/L (10-42); BILIRUBIN,TOTAL 0.7 mg/dL (0.2-1.0); BUN - BLOOD UREA NITROGEN 18 mg/dL (6-20); CALCIUM 9.3 mg/dL (8.5-10.3); CARBON DIOXIDE - CO2 29 mmol/L (21-32); CHLORIDE 101 mmol/L (101-111); CHOL/HDL RATIO 3.1 (<4.4); CHOLESTEROL 216 mg/dL; CREATININE 1.1 mg/dL (0.4-1.0); GFR - MDRD 48 (>89); GLUCOSE 118 mg/dL (70-100); HDL CHOLESTEROL 69 mg/dL; LDL CHOLESTEROL,CALCULATED 124 mg/dL; LDL/HDL RATIO 1.8 (<4.4); POTASSIUM 3.9 mmol/L (3.5-5.0); SODIUM 137 mmol/L (135-145); TOTAL PROTEIN 7.9 g/dL (6.7-8.2); TRIGLYCERIDES 115 mg/dL; VLDL CHOLESTEROL 23 mg/dL
[2022-07-16 21:10] LABS: FREE T4 (FREE THYROXINE) 0.77 ng/dL (0.58-1.64)
[2022-07-16 21:24] LABS: ESTIMATED AVERAGE GLUCOSE 163 mg/dL (70-100); HEMOGLOBIN A1c% 7.3 % (4.27-6.07)
== END 2022-07-16 09:12 | disposition home or self-care (01) ==
LOC: LAB.N 09:11
PROVIDERS: ATTEND Nurse Practitioner Family
DX: I12.9 Hypertensive chronic kidney disease with stage 1 through stage 4 chronic kidney disease, or unspecified chronic kidney disease (principal); E11.22 Type 2 diabetes mellitus with diabetic chronic kidney disease; N18.9 Chronic kidney disease, unspecified; E87.6 Hypokalemia
CPT/HCPCS: 36415; 80053; 80061; 83036; 83721; 84439; 84443; 85025

== ENCOUNTER 2022-11-20 08:59 | Outpatient (CLI) | payer MEDICARE, MEDICAID ==
[2022-11-20 11:52] LABS: BASOPHILS % (AUTO) 0.7 %; EOSINOPHILS # (AUTO) 0.3 10^3/uL (0.0-0.7); EOSINOPHILS % (AUTO) 4.7 %; HCT - HEMATOCRIT 41.9 % (37.0-47.0); HGB - HEMOGLOBIN 13.3 g/dL (12.0-16.0); LYMPHOCYTES # (AUTO) 2.2 10^3/uL (1.5-3.5); MEAN CORPUSCULAR HEMOGLOBIN 28.9 pg (27.0-31.0); MEAN CORPUSCULAR HGB CONC 31.7 g/dL (32.0-36.0); MEAN CORPUSCULAR VOLUME 90.9 fL (81.0-99.0); MEAN PLATELET VOLUME 9.2 fL (7.9-10.8); MONOCYTES # (AUTO) 0.4 10^3/uL (0.0-1.0); MONOCYTES % (AUTO) 6.9 %; NEUTROPHILS # (AUTO) 2.8 10^3/uL (1.5-6.6); NEUTROPHILS % (AUTO) 49.4 %; PLT - PLATELET COUNT 224 10^3/uL (130-450); RED BLOOD COUNT 4.61 10^6/uL (4.20-5.40); RED CELL DISTRIBUTION WIDTH 12.8 % (12.0-15.0); WHITE BLOOD COUNT 5.8 x10^3/uL (4.8-10.8)
[2022-11-20 12:19] LABS: ESTIMATED AVERAGE GLUCOSE 163 mg/dL (70-100); HEMOGLOBIN A1c% 7.3 % (4.27-6.07)
[2022-11-20 13:53] LABS: ALBUMIN/GLOBULIN RATIO 1.2 (1.0-2.2); ALKALINE PHOSPHATASE 51 IU/L (42-121); ALT ALANINE AMINOTRANSFERASE 14 IU/L (10-60); AST ASPARTATE AMINOTRANSFERASE 20 IU/L (10-42); BILIRUBIN,TOTAL 0.6 mg/dL (0.2-1.0); BUN - BLOOD UREA NITROGEN 19 mg/dL (6-20); CALCIUM 8.9 mg/dL (8.5-10.3); CARBON DIOXIDE - CO2 27 mmol/L (21-32); CHLORIDE 106 mmol/L (101-111); CHOL/HDL RATIO 2.4 (<4.4); CHOLESTEROL 165 mg/dL; CREATININE 1.1 mg/dL (0.4-1.0); GFR - MDRD 48 (>89); GLUCOSE 172 mg/dL (70-100); HDL CHOLESTEROL 68 mg/dL; LDL CHOLESTEROL,CALCULATED 71 mg/dL; POTASSIUM 3.8 mmol/L (3.5-5.0); SODIUM 139 mmol/L (135-145); TOTAL PROTEIN 7.4 g/dL (6.7-8.2); TRIGLYCERIDES 132 mg/dL; VLDL CHOLESTEROL 26 mg/dL
[2022-11-20 13:59] LABS: THYROID STIMULATING HORMONE 8.75 uIU/mL (0.34-5.60)
[2022-11-20 15:58] LABS: FREE T4 (FREE THYROXINE) 0.77 ng/dL (0.58-1.64)
== END 2022-11-20 09:00 | disposition home or self-care (01) ==
LOC: LAB.N 08:59
PROVIDERS: ATTEND Nurse Practitioner Family
DX: I12.9 Hypertensive chronic kidney disease with stage 1 through stage 4 chronic kidney disease, or unspecified chronic kidney disease (principal); E11.22 Type 2 diabetes mellitus with diabetic chronic kidney disease; E87.6 Hypokalemia; E78.5 Hyperlipidemia, unspecified
CPT/HCPCS: 36415; 80053; 80061; 83036; 83721; 84439; 84443; 85025

== ENCOUNTER 2022-11-24 09:29 | Outpatient (CLI) | payer MEDICARE, MEDICAID ==
--- NOTE | 2022-11-24 13:54 | DEXA Report ---
PROCEDURE: Dexa Spine and/or Hip INDICATIONS: OSTEOPOROSIS TECHNIQUE: Dual energy x-ray absorptiometry (DXA) was performed on a [email or web address] System. Regions measur ed are the AP Spine, femoral neck, and if needed forearm. COMPARISON: DEXA scan dated 05/19/2014 FINDINGS: Lumbar Spine: Bone Mineral Density 1.020 g/cm/cm,T score -1.3. Previous T score of -3.7 on the study dated . Left Femoral Neck: Bone Mineral Density 0.745 g/cm/cm, T score -2.1. Previous T score of -2.3 on the study dated 014. Left Hip: Bone Mineral Density 0.793 g/cm/cm,T score -1.7. Unchanged from the prior study. (T score greater or equal to -1.0: NORMAL) (T score from -1.1 to -2.4: OSTEOPENIA) (T score less than or equal to -2.5 to: OSTEOPOROSIS) Impression: 1. Osteopenia of the lumbar spine and the left hip. There is increased bone mineral density of the smith mbar spine when compared with the study dated 05/19/2014. Patients with diagnosis of osteoporosis or osteopenia should have regular bone mineral density assess ment. For those eligible for Medicare, routine testing is allowed once every 2 years. Testing frequ ency can be increased for patients who have rapidly progressing disease or for those who are receivin g medical therapy to restore bone mass. Reviewed by: Mago Payton MD on 11/24/2022 1:53 PM PDT Approved by: Mago Payton MD on 11/24/2022 1:53 PM PDT Station ID: [id number]
== END 2022-11-24 09:30 | disposition home or self-care (01) ==
LOC: DI 09:29
PROVIDERS: ATTEND Nurse Practitioner Family
DX: M85.89 Other specified disorders of bone density and structure, multiple sites (principal)

== ENCOUNTER 2023-01-29 15:02 | Outpatient (CLI) | payer MEDICARE, MEDICAID | END 2023-01-29 15:03 | disposition home or self-care (01) | LOC: DI 15:02 | PROVIDERS: ATTEND Nurse Practitioner Family | DX: I12.9 Hypertensive chronic kidney disease with stage 1 through stage 4 chronic kidney disease, or unspecified chronic kidney disease (principal); E11.22 Type 2 diabetes mellitus with diabetic chronic kidney disease | CPT/HCPCS: 93306 ==

== ENCOUNTER 2023-03-02 09:08 | Outpatient (CLI) | payer MEDICARE, MEDICAID ==
[2023-03-02 12:49] LABS: CALCIUM 9.5 mg/dL (8.5-10.3); CREATININE 1.1 mg/dL (0.6-1.3); POTASSIUM 3.9 mmol/L (3.5-4.5)
[2023-03-02 12:52] LABS: ESTIMATED AVERAGE GLUCOSE 160 mg/dL (70-100); HEMOGLOBIN A1c% 7.2 % (4.27-6.07)
== END 2023-03-02 09:09 | disposition home or self-care (01) ==
LOC: LAB.N 09:08
PROVIDERS: ATTEND Nurse Practitioner Family
DX: I12.9 Hypertensive chronic kidney disease with stage 1 through stage 4 chronic kidney disease, or unspecified chronic kidney disease (principal); E11.22 Type 2 diabetes mellitus with diabetic chronic kidney disease
CPT/HCPCS: 36415; 80048; 83036

== ENCOUNTER 2023-04-07 08:00 | Outpatient (CLI) | payer MEDICARE, MEDICAID ==
[2023-04-07 13:07] LABS: CALCIUM 9.4 mg/dL (8.5-10.3); CREATININE 1.4 mg/dL (0.6-1.3); POTASSIUM 3.6 mmol/L (3.5-4.5)
[2023-04-07 13:23] LABS: CREATININE,URINE 65.2 mg/dL; PROTEIN/CREATININE RATIO,URINE 0.1 (<=0.2)
== END 2023-04-07 23:59 | disposition home or self-care (01) ==
LOC: LAB.N 08:00
PROVIDERS: ATTEND Internal Medicine Nephrology
DX: E11.9 Type 2 diabetes mellitus without complications (principal); N05.9 Unspecified nephritic syndrome with unspecified morphologic changes; R80.9 Proteinuria, unspecified
CPT/HCPCS: 36415; 80048; 82570; 84156

== ENCOUNTER 2023-09-17 09:18 | Outpatient (CLI) | payer MEDICARE, MEDICAID ==
[2023-09-17 12:04] LABS: HCT - HEMATOCRIT 39.7 % (37.0-47.0); HGB - HEMOGLOBIN 12.6 g/dL (12.0-16.0); MEAN CORPUSCULAR HEMOGLOBIN 28.5 pg (27.0-31.0); MEAN CORPUSCULAR HGB CONC 31.7 g/dL (32.0-36.0); MEAN CORPUSCULAR VOLUME 89.8 fL (81.0-99.0); MEAN PLATELET VOLUME 9.2 fL (7.9-10.8); RED BLOOD COUNT 4.42 10^6/uL (4.20-5.40); RED CELL DISTRIBUTION WIDTH 12.7 % (12.0-15.0); WHITE BLOOD COUNT 6.3 x10^3/uL (4.8-10.8)
[2023-09-17 12:12] LABS: CREATININE,URINE 53.7 mg/dL; PROTEIN/CREATININE RATIO,URINE 0.1 (<=0.2)
[2023-09-17 12:24] LABS: CALCIUM 9.9 mg/dL (8.5-10.3); CREATININE 1.3 mg/dL (0.6-1.3); PHOSPHORUS 3.5 mg/dL (2.5-5.0); POTASSIUM 3.5 mmol/L (3.5-4.5)
== END 2023-09-17 09:19 | disposition home or self-care (01) ==
LOC: LAB.N 09:18
PROVIDERS: ATTEND Internal Medicine Nephrology
DX: D70.9 Neutropenia, unspecified (principal); N05.9 Unspecified nephritic syndrome with unspecified morphologic changes; N25.81 Secondary hyperparathyroidism of renal origin; E83.30 Disorder of phosphorus metabolism, unspecified; R80.9 Proteinuria, unspecified; D63.1 Anemia in chronic kidney disease
CPT/HCPCS: 36415; 80048; 82570; 83970; 84100; 84156; 85027

== ENCOUNTER 2023-12-17 14:26 | Outpatient (CLI) | payer MEDICARE, MEDICAID | END 2023-12-17 23:59 | disposition critical access hospital (66) | LOC: EMS 14:26 | DX: R51.9 Headache, unspecified (principal); M25.521 Pain in right elbow; R53.1 Weakness; M54.2 Cervicalgia; R35.0 Frequency of micturition; W18.39XA Other fall on same level, initial encounter; Y92.002 Bathroom of unspecified non-institutional (private) residence as the place of occurrence of the external cause | CPT/HCPCS: A0425; A0429 ==

== ENCOUNTER 2023-12-17 14:51 | Emergency (ER) | payer MEDICARE, MEDICAID ==
[2023-12-17] MEDS: SODIUM CHLORIDE 0.9% 1,000 ML IV STA ×2 (15:12→17:35)
[2023-12-17 15:32] LABS: BASOPHILS # (AUTO) 0.1 10^3/uL (0.0-0.1); BASOPHILS % (AUTO) 0.6 %; EOSINOPHILS # (AUTO) 0.2 10^3/uL (0.0-0.7); EOSINOPHILS % (AUTO) 2.6 %; HCT - HEMATOCRIT 39.9 % (37.0-47.0); HGB - HEMOGLOBIN 12.5 g/dL (12.0-16.0); LYMPHOCYTES # (AUTO) 2.6 10^3/uL (1.5-3.5); LYMPHOCYTES % (AUTO) 30.3 %; MEAN CORPUSCULAR HEMOGLOBIN 28.7 pg (27.0-31.0); MEAN CORPUSCULAR HGB CONC 31.3 g/dL (32.0-36.0); MEAN CORPUSCULAR VOLUME 91.5 fL (81.0-99.0); MEAN PLATELET VOLUME 9.7 fL (7.9-10.8); MONOCYTES # (AUTO) 0.6 10^3/uL (0.0-1.0); MONOCYTES % (AUTO) 7.3 %; NEUTROPHILS # (AUTO) 4.9 10^3/uL (1.5-6.6); NEUTROPHILS % (AUTO) 58.7 %; PLT - PLATELET COUNT 181 10^3/uL (130-450); RED BLOOD COUNT 4.36 10^6/uL (4.20-5.40); RED CELL DISTRIBUTION WIDTH 12.7 % (12.0-15.0); WHITE BLOOD COUNT 8.4 x10^3/uL (4.8-10.8)
[2023-12-17 15:35] LABS: SLIDE REVIEW? Indicated
--- NOTE | 2023-12-17 15:51 | CT Report ---
PROCEDURE: Head WO INDICATIONS: fall/head inj TECHNIQUE: Noncontrast 4.5 mm thick angled axial sections acquired from the foramen magnum to the vertex. For r adiation dose reduction, the following was used: automated exposure control, adjustment of mA and/or kV according to patient size. COMPARISON: CT head 10/06/2020 FINDINGS: Image quality: Excellent. The ventricular system and cortical sulci demonstrate atrophy, consistent for patient's stated age. There are areas of hypodensity in the periventricular and subcortical white matter. There is no acut e intra or extra-axial fluid collection. No acute hemorrhage, mass lesion or midline shift. Brainst em is unremarkable. Globes are symmetrical. Sinuses are aerated. Osseous structures are intact. IMPRESSION: 1. No acute intracranial process. 2. Moderate atrophy and chronic microvascular ischemic changes. Reviewed by: Alessandra Beckett MD on 12/17/2023 3:50 PM PDT Approved by: Alessandra Beckett MD on 12/17/2023 3:50 PM PDT Station ID: [id number]
--- NOTE | 2023-12-17 15:53 | CT Report ---
PROCEDURE: Cervical Spine WO INDICATIONS: neck pain after fall TECHNIQUE: Noncontrast 3 mm thick sections acquired from the skull base to the T4 level. Sagittal and coronal r eformats were then constructed. For radiation dose reduction, the following was used: automated exp osure control, adjustment of mA and/or kV according to patient size. COMPARISON: None. FINDINGS: Image quality: Excellent. Bones: No fractures or dislocations. Visualized superior ribs are intact. There is reversal of cer vical curvature. There is multilevel retrolisthesis most prominent at C6 on C7. Multilevel degenerati ve disc space narrowing is present. Soft tissues: Prevertebral soft tissues are normal in thickness. No paravertebral hematomas. No ap ical pneumothoraces. IMPRESSION: Degenerative changes without visualized fracture. Reviewed by: Alessandra Beckett MD on 12/17/2023 3:51 PM PDT Approved by: Alessandra Beckett MD on 12/17/2023 3:51 PM PDT Station ID: [id number]
[2023-12-17 16:13] LABS: ALBUMIN/GLOBULIN RATIO 1.4 (1.0-2.2); BILIRUBIN,TOTAL 0.4 mg/dL (0.2-1.0); CALCIUM 9.4 mg/dL (8.5-10.3); CREATININE 1.6 mg/dL (0.6-1.3); POTASSIUM 3.5 mmol/L (3.5-4.5); TOTAL PROTEIN 6.9 g/dL (6.4-8.9)
[2023-12-17 17:18] LABS: BILIRUBIN,URINE NEGATIVE (NEGATIVE); GLUCOSE, URINE (UA) NEGATIVE (NEGATIVE); KETONES,URINE (UA) NEGATIVE (NEGATIVE); LEUKOCYTE ESTERASE, URINE SMALL (NEGATIVE); NITRITE,URINE NEGATIVE (NEGATIVE); OCCULT BLOOD,URINE TRACE-INTA (NEGATIVE); PROTEIN,URINE NEGATIVE (NEGATIVE); UROBILINOGEN,URINE 0.2 (NORMAL) E.U./dL (NORMAL)
[2023-12-17 17:19] LABS: CLARITY,URINE HAZY (CLEAR)
[2023-12-17 17:27] LABS: BACTERIA,URINE Many /HPF (None Seen); RBC,URINE 0-5 /HPF (0-5); SQUAMOUS EPITHELIAL CELL,UR FEW Squamous (<= Few); WBC CLUMPS,URINE PRESENT; WBC,URINE >25 /HPF (0-5)
--- NOTE | 2023-12-17 17:37 | ED Physician Documentation ---
History of Present Illness - Stated complaint Stated Complaint: GLF - Chief complaint Chief Complaint: Neuro - History obtained from History obtained from: Patient, Family, EMS - Additonal information Additional information: Patient is brought to the emergency department by EMS for chief complaint of ground-level fall. She had been using the bathroom and when she stood up from the toilet, she began to feel lightheaded and fell forward. She struck the front of her head on the wall and then slumped to the floor. The patient's daughter states the patient is been a little more tired than usual.No fevers or chills. No nausea or vomiting. Patient has a history of frequent UTIs and family is concerned that she may have another one. 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, Other HEENT: None, Other Psych: Depression Musculoskeletal: None, Osteoarthritis Derm: None - Past Surgical History Past Surgical History: Yes General: Appendectomy, Other HEENT: Cataracts - Present Medications Home Medications: Ambulatory Orders Medication Instructions Recorded Confirmed Aspirin [Aspir 81] 81 mg PO DAILY 08/24/13 12/21/23 Carvedilol 25 mg PO BID 08/24/13 12/21/23 [place]-3/Dha/Epa/Fish Oil [Fish Oil 1,000 mg PO BID 02/02/18 12/21/23 1,000 mg Softgel] Chlorthalidone 12.5 mg PO DAILY 10/07/19 12/21/23 cephALEXin [Keflex] 500 mg PO BID #10 cap 12/19/23 12/21/23 Alendronate [Fosamax] 70 mg PO OAW 12/21/23 12/21/23 Losartan [Cozaar] 50 mg PO BID 12/21/23 12/21/23 Rosuvastatin Calcium 10 mg PO QPM 12/21/23 12/21/23 metFORMIN [Glucophage] 500 mg PO BID 12/21/23 12/21/23 - Allergies Allergies/Adverse Reactions: Allergies Allergy/AdvReac Type Severity Reaction Status Date / Time amlodipine AdvReac Unknown Verified 12/20/23 13:10 simvastatin [From Zocor] AdvReac Unknown Verified 12/20/23 13:10 - Social History Does the pt smoke?: No Smoking Status: Never smoker Does the pt drink ETOH?: No Does the pt have substance abuse?: No - Immunizations Immunizations are current?: Yes - POLST Patient has POLST: No PD ED PE NORMAL - Vitals Vital signs reviewed: Yes - General General: Alert and 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, No acute distress, Well developed/nourished - HEENT HEENT: Atraumatic, EOMI, Moist mucous membranes - Neck Neck: Supple, no meningeal sign - Cardiac Cardiac: RRR, No murmur - Respiratory Respiratory: No respiratory distress, Clear bilaterally - Abdomen Abdomen: Soft, Non tender, Non distended - Derm Derm: Normal color, Warm and dry, No rash - Extremities Extremities: No deformity, No edema - Neuro Neuro: Other (Alert, appropriate, grossly intact.) - Psych Psych: Normal mood, Normal affect Results - Vitals Vitals: Oxygen O2 Source Room air - Labs Labs: Microbiology 12/17/23 17:06 Urine Culture - Final Urine,Random Escherichia Coli Laboratory Tests 12/17/23 12/17/23 12/17/23 13:20 15:45 17:06 WBC 8.4 RBC 4.36 Hgb 12.5 Hct 39.9 MCV 91.5 MCH 28.7 MCHC 31.3 L RDW 12.7 Plt Count 181 MPV 9.7 Neut # (Auto) 4.9 Lymph # (Auto) 2.6 [place] # (Auto) 0.6 Eos # (Auto) 0.2 Baso # (Auto) 0.1 Absolute Nucleated RBC 0.00 Nucleated RBC % 0.0 Manual Slide Review Indicated Sodium 134 L Potassium 3.5 Chloride 100 L Carbon Dioxide 24 Anion Gap 10.0 BUN 25 H Creatinine 1.6 H Estimated GFR (MDRD) 31 L Glucose 146 H Calcium 9.4 Total Bilirubin 0.4 AST 24 ALT 10 Alkaline Phosphatase 41 L Total Protein 6.9 Albumin 4.0 Globulin 2.9 Albumin/Globulin Ratio 1.4 Lipase 102 H Urine Color LIGHT YELLOW Urine Clarity HAZY Urine pH 6.0 Ur Specific Zahl <=1.005 Urine Protein NEGATIVE Urine Glucose (UA) NEGATIVE Urine Ketones NEGATIVE Urine Occult Blood TRACE-INTA Urine Nitrite NEGATIVE Urine Bilirubin NEGATIVE Urine Urobilinogen 0.2 (NORMAL) Ur Leukocyte Esterase SMALL H Urine RBC 0-5 Urine WBC >25 H Urine WBC Clumps PRESENT Ur Squamous Epith Cells FEW Squamous Urine Bacteria Many H Ur Microscopic Review INDICATED Urine Culture Comments INDICATED - Rads (name of study) Head CT Relevant Findings:: Final report received, See rad report (Microvascular disease, otherwise no acute findings.) CT C-spine Relevant Findings:: Final report received, See rad report (Degenerative disease, otherwise negative) PD Medical Decision Making - ED course Complexity details: reviewed results, re-evaluated patient, considered differential, d/w patient, d/w family ED course: The patient was worked up with laboratory studies, which were remarkable for a BUN of 25 and creatinine 1.6. She was treated with IV fluids for what appeared to be some dehydration. Patient's urinalysis showed a small amount of leukocyte Estrace and greater than 25 white blood cells with many bacteria and only few squamous cells. I felt this was consistent with a UTI. The patient was started on antibiotics in the emergency department. She felt much better after IV fluids. I have discussed the findings with the family and they are amenable to taking the patient home. We have discussed the usual indications for follow-up and return. Departure - Departure Disposition: 01 Home, Self Care Clinical Impression: Dehydration UTI (urinary tract infection) Qualifiers: Urinary tract infection type: acute cystitis Hematuria presence: without hematuria Qualified Code(s): N30.00 - Acute cystitis without hematuria Condition: Good Instructions: ED Dehydration, ED UTI Cystitis Female Prescriptions: cephALEXin [Keflex] 500 mg PO BID #10 cap Comments: Your CT scans of the head and neck look good. Your labs show signs of dehydration but otherwise look okay. Your urinalysis shows a urinary tract infection. You have been given a liter of IV fluid to treat your dehydration and your been started on antibiotics here in the emergency department. 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 pharmacy in [place], aware your prescription has been electronically sent. It is very important that you get 8 to 10 cups of water each day to stay hydrated. Please follow-up with your primary doctor if you are not feeling better in the next week. Forms: PCP List Discharge Date/Time: 12/17/23 17:45
[2023-12-17] MEDS: SULFAMETH/TRIMETH DS 800/160 MG TABLET PO STA (17:48)
[2023-12-17 18:09] VITALS: BP 174/78; O2SAT 100
--- NOTE | 2023-12-19 12:18 | MISCELLANEOUS PROVIDER NOTE ---
Miscellaneous Provider Note - - Note: called pt to notify her of change in antibiotics. Her urine cx is e.coli, resistant to the bactrim prescribed. I have sent in keflex to her pharmacy and she will pick it up today.
== END 2023-12-17 17:45 | disposition home or self-care (01) ==
LOC: EDUNIT# → ED 14:51
DX: E86.0 Dehydration (principal); N30.00 Acute cystitis without hematuria
CPT/HCPCS: 36415; 70450; 72125; 80053; 81001; 83690; 85025; 87086; 87181; 96360; 96361; 99284; A9270; 81003

== ENCOUNTER 2023-12-20 12:41 | Outpatient (CLI) | payer MEDICARE, MEDICAID | END 2023-12-20 23:59 | disposition critical access hospital (66) | LOC: EMS 12:41 | PROVIDERS: ATTEND Emergency Medicine | DX: R51.9 Headache, unspecified (principal); R11.2 Nausea with vomiting, unspecified; R10.817 Generalized abdominal tenderness; R00.1 Bradycardia, unspecified | CPT/HCPCS: A0425; A0427 ==

== ENCOUNTER 2023-12-20 12:59 | Inpatient (IN) | payer MEDICARE, MEDICAID ==
--- NOTE | 2023-12-20 13:26 | ED Physician Documentation ---
PD HPI HEAD INJURY - Stated complaint Stated Complaint: GALO/N/V - Chief complaint Chief Complaint: Neuro - History obtained from History obtained from: Patient, Family, EMS - Additional information Additional information: She was seen by my partner after a fall and had negative cranial imaging 2 days ago. Her headache got much worse today with 2 episodes of vomiting. 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, Other HEENT: None, Other Psych: Depression Musculoskeletal: None, Osteoarthritis Derm: None - Past Surgical History Past Surgical History: Yes General: Appendectomy, Other HEENT: Cataracts - Present Medications Home Medications: Ambulatory Orders Medication Instructions Recorded Confirmed Aspirin [Aspir 81] 81 mg PO DAILY 08/24/13 02/04/18 Carvedilol 12.5 mg PO BID 08/24/13 02/04/18 Glipizide [Glipizide ER] 2.5 mg PO DAILY 02/02/18 02/04/18 Magnesium Oxide [Magnesium] 400 mg PO BID 02/02/18 02/03/18 [place]-3/Dha/Epa/Fish Oil [Fish Oil 1,000 mg PO BID 02/02/18 02/03/18 1,000 mg Softgel] Chlorthalidone 25 mg 10/07/19 Valsartan [Diovan] 160 mg PO 10/07/19 cephALEXin [Keflex] 500 mg PO BID #10 cap 12/19/23 - Allergies Allergies/Adverse Reactions: Allergies Allergy/AdvReac Type Severity Reaction Status Date / Time amlodipine AdvReac Unknown Verified 12/20/23 13:10 simvastatin [From Zocor] AdvReac Unknown Verified 12/20/23 13:10 - Social History Does the pt smoke?: No Smoking Status: Never smoker Does the pt drink ETOH?: No Does the pt have substance abuse?: No - Immunizations Immunizations are current?: Yes - POLST Patient has POLST: No PD ED PE NORMAL - Vitals Vital signs reviewed: Yes - General General: Alert and 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, Other (Seems sleepy and slightly slow to answer questions) - HEENT HEENT: PERRL, EOMI - Neck Neck: Supple, no meningeal sign, No bony TTP - Neuro 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 and 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, 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 Eye Opening: To Voice Motor: Obeys Commands Verbal: Oriented GCS Score: 14 Results - Vitals Vitals: Vital Signs - 24 hr 12/20/23 13:06 Temperature 36.5 C Heart Rate 63 Respiratory 18 Rate Blood Pressure 181/75 H O2 Saturation 100 Oxygen O2 Source Room air - Labs Labs: Laboratory Tests 12/20/23 12/20/23 13:36 13:36 WBC 11.5 H RBC 4.71 Hgb 13.2 Hct 39.2 MCV 83.2 MCH 28.0 MCHC 33.7 RDW 12.2 Plt Count 205 MPV 8.4 Neut # (Auto) 8.6 H Lymph # (Auto) 2.2 [place] # (Auto) 0.6 Eos # (Auto) 0.1 Baso # (Auto) 0.0 Absolute Nucleated RBC 0.00 Nucleated RBC % 0.0 Sodium 120 L* Potassium 3.5 Chloride 87 L Carbon Dioxide 23 Anion Gap 10.0 BUN 14 Creatinine 1.5 H Estimated GFR (MDRD) 33 L Glucose 153 H Calcium 9.8 Total Bilirubin 0.7 AST 22 ALT 12 Alkaline Phosphatase 45 Total Protein 7.8 Albumin 4.4 Globulin 3.4 Albumin/Globulin Ratio 1.3 - Rads (name of study) CT head- nl Relevant Findings:: Final report received, EMP independent interpretation of test PD Medical Decision Making - ED course ED course: This is an 78-year-old woman who presents with a more severe headache after head injury 2 days ago. Repeat cranial imaging was done which was still negative for severe head injury but interestingly her sodium today is 120. It was 134 2 days ago. She is on chlorthalidone but that is not new so suspect her hyponatremia is predominantly from postconcussive vomiting. It is low enough and she is somewhat sleepy so I gave her a dose of hypertonic saline and spoke with Dr. Castillo for admission at 2:28 PM. Departure - Departure Disposition: 66 [facility] DC/Xfer Clinical Impression: Hyponatremia, Headache Condition: Serious Forms: PCP List
[2023-12-20] MEDS: MORPHINE 2 MG/ML CARPUJECT IVP STA (13:40)
[2023-12-20 13:41] LABS: BASOPHILS % (AUTO) 0.3 %; EOSINOPHILS # (AUTO) 0.1 10^3/uL (0.0-0.7); EOSINOPHILS % (AUTO) 0.6 %; HCT - HEMATOCRIT 39.2 % (37.0-47.0); HGB - HEMOGLOBIN 13.2 g/dL (12.0-16.0); LYMPHOCYTES # (AUTO) 2.2 10^3/uL (1.5-3.5); MEAN CORPUSCULAR HGB CONC 33.7 g/dL (32.0-36.0); MEAN CORPUSCULAR VOLUME 83.2 fL (81.0-99.0); MEAN PLATELET VOLUME 8.4 fL (7.9-10.8); MONOCYTES # (AUTO) 0.6 10^3/uL (0.0-1.0); MONOCYTES % (AUTO) 4.9 %; NEUTROPHILS # (AUTO) 8.6 10^3/uL (1.5-6.6); NEUTROPHILS % (AUTO) 74.7 %; PLT - PLATELET COUNT 205 10^3/uL (130-450); RED BLOOD COUNT 4.71 10^6/uL (4.20-5.40); RED CELL DISTRIBUTION WIDTH 12.2 % (12.0-15.0); WHITE BLOOD COUNT 11.5 x10^3/uL (4.8-10.8)
[2023-12-20] MEDS: SODIUM CHLORIDE 0.9% 1,000 ML IV STA (13:54)
[2023-12-20 14:02] LABS: ALBUMIN 4.4 g/dL (3.2-5.5); ALBUMIN/GLOBULIN RATIO 1.3 (1.0-2.2); BILIRUBIN,TOTAL 0.7 mg/dL (0.2-1.0); CALCIUM 9.8 mg/dL (8.5-10.3); CREATININE 1.5 mg/dL (0.6-1.3); POTASSIUM 3.5 mmol/L (3.5-4.5); TOTAL PROTEIN 7.8 g/dL (6.4-8.9)
--- NOTE | 2023-12-20 14:07 | CT Report ---
PROCEDURE: Head WO INDICATIONS: head injury TECHNIQUE: Noncontrast 4.5 mm thick angled axial sections acquired from the foramen magnum to the vertex. For r adiation dose reduction, the following was used: automated exposure control, adjustment of mA and/or kV according to patient size. COMPARISON: CT head December 17, 2023 FINDINGS: Image quality: Excellent. CSF spaces: Basal cisterns are patent. No extra-axial fluid collections. Ventricles are normal in size and shape. Brain: Multiplanar, volume loss especially CSF containing spaces. Basal ganglia calcifications. Loree ventricular white matter hypodensities. No midline shift. No intracranial masses or hemorrhage. Gra y-white matter interface is normal. Skull and face: Calvarium and visualized facial bones are intact, without suspicious lesions. Sinuses: Visualized sinuses and mastoids are clear. IMPRESSION: No acute intracranial pathology. Sequela of chronic microvascular ischemia. Reviewed by: Cali Armstrong MD on 12/20/2023 1:06 PM SYBIL Approved by: Cali Armstrong MD on 12/20/2023 1:06 PM SYBIL Station ID: [id number]
[2023-12-20] MEDS: SODIUM CHLORIDE 3% HYPERTONIC 50 ML IV SCH (15:11)
[2023-12-20] MEDS ORDERED: SODIUM CHLORIDE FLUSH 0.9% 10 ML SYRINGE IVP PRN (15:48)
[2023-12-20] MEDS ORDERED: HYDROcod/ACETAM 5/325 MG TABLET PO PRN (15:48)
--- NOTE | 2023-12-20 15:57 | HISTORY & PHYSICAL EXAMINATION ---
Chief Complaint - Chief Complaint Chief Complaint: Hyponatremia History of Present Illness - Admitted From Admitted From:: ED - History Obtained From Records Reviewed: Yes History obtained from: Patient Exam Limitations: None - History of Present Illness HPI Comment/Other: Patient is an 78-year-old female with a past medical history of hypertension who presented to the ED due to complaints of nausea and vomiting after sustaining a head injury on 12/16. During his ED visit CT scans were unremarkable. Her she was also diagnosed with a UTI at this time and was given oral antibiotics. She presented today due to ongoing nausea and vomiting. Blood work revealed a sodium of 120. Repeat CT head was also performed which was negative. Remainder of labs were unremarkable. During my evaluation, patient complained of a headache. She had a small bruise on her forehead. She also endorsed epigastric abdominal pain. Patient denies any fevers or chills. She denies any vision changes. She was not having any seizures at home. 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 : reports: None, Other HEENT: reports: None, Other Psych: reports: Depression Musculoskeletal: reports: None, Osteoarthritis Derm: reports: None MRSA Hx?: No - Past Surgical History General: reports: Appendectomy, Other HEENT: reports: Cataracts - POLST Patient has POLST: No Meds/Allgy - Home Medications Home Medications: Ambulatory Orders Medication Instructions Recorded Confirmed Aspirin [Aspir 81] 81 mg PO DAILY 08/24/13 02/04/18 Carvedilol 12.5 mg PO BID 08/24/13 02/04/18 Glipizide [Glipizide ER] 2.5 mg PO DAILY 02/02/18 02/04/18 Magnesium Oxide [Magnesium] 400 mg PO BID 02/02/18 02/03/18 [place]-3/Dha/Epa/Fish Oil [Fish Oil 1,000 mg PO BID 02/02/18 02/03/18 1,000 mg Softgel] Chlorthalidone 25 mg 10/07/19 Valsartan [Diovan] 160 mg PO 10/07/19 cephALEXin [Keflex] 500 mg PO BID #10 cap 12/19/23 - Allergies Allergies/Adverse Reactions: Allergies Allergy/AdvReac Type Severity Reaction Status Date / Time amlodipine AdvReac Unknown Verified 12/20/23 13:10 simvastatin [From Zocor] AdvReac Unknown Verified 12/20/23 13:10 Review of Systems - Constitutional Constitutional: reports: Fatigue, Weakness. denies: Fever, Chills - Eyes Eyes: denies: Vision loss - Cardiovascular Cariovascular: denies: Irregular heart rate, Palpitations, Chest pain - Respiratory Respiratory: denies: Cough, Sputum production, Wheezing - Gastrointestinal Gastrointestinal: reports: Abdominal pain. denies: Constipation - Neurological Neurological: reports: General weakness, Headache. denies: Focal weakness Exam - Vital Signs Vital Signs: Vital Signs x48h Temp Pulse Resp BP Pulse Ox 12/20/23 13:06 36.5 C 63 18 181/75 H 100 - Physical Exam General Appearance: positive: Alert, Mild distress Respiratory: positive: Chest non-tender, No respiratory distress, Breath sounds nml Cardiovascular: positive: Regular rate & rhythm, No murmur, No gallop Abdomen: positive: Tenderness Neurologic/Psychiatric: positive: Oriented x3, CN's nml (2-12) Conclusion/Plan - Problem List (1) Hyponatremia Conclusion/Plan: --Hyponatremia likely secondary to SIADH from her fall or possibly her chlorthalidone and ARB use. -- Will closely monitor her labs for sodium every 6 hours. --Starting on IV normal saline. She was given 3% NS in the ED therefore urine studies will likely be invalid. (2) Headache Conclusion/Plan: --Fall on 12/[address] CT head on 01/16 negative. --Holding home aspirin. (3) UTI (urinary tract infection) Conclusion/Plan: --Started on IV ceftriaxone for her E. coli UTI. Qualifiers: Urinary tract infection type: acute cystitis Hematuria presence: without hematuria Qualified Code(s): N30.00 - Acute cystitis without hematuria (4) Abdominal pain Conclusion/Plan: --Complaining of epigastric abdominal pain. Will obtain a Lipase as well as a CT abd/pelvis given her elevated WBC count and N/V. - Lab Results Fish Bones: 12/20/23 13:36 12/20/23 13:36 - Diagnostic Imaging Results Diagnostic Imaging Results: positive: Final report reviewed
[2023-12-20] MEDS ORDERED: hydrALAZINE INJ 20 MG/ML VIAL IVP PRN (16:01)
[2023-12-20] MEDS ORDERED: iohexoL-300 100 ML VIAL ONE (16:02)
[2023-12-20] MEDS: iohexoL-300 100 ML VIAL IVP ONE (16:43)
[2023-12-20] MEDS: SODIUM CHLORIDE FLUSH 0.9% 10 ML SYRINGE IVP SCH (16:49)
--- NOTE | 2023-12-20 17:09 | CT Report ---
PROCEDURE: Abdomen/Pelvis W INDICATIONS: Epigastric abdominal pain, N/V CONTRAST: 90ml omni 300 TECHNIQUE: After the administration of intravenous contrast, a CT scan of the abdomen and pelvis was performed. Images were recorded and evaluated at appropriate window settings. Reformats: coronal and sagittal. F or radiation dose reduction, the following was used: automated exposure control, adjustment of mA and /or kV according to patient size. COMPARISON: CT of abdomen and pelvis, 12/20/2014. FINDINGS: Image quality: Diagnostic. Lower chest: Trace right pleural effusion. Bibasilar atelectasis. Mild cardiac megaly. There is a mod erate-sized hiatal hernia. Liver: Normal size. Mild hepatic steatosis. No solid mass. Gallbladder: Normal gallbladder. No gallstones. Biliary tree: No intrahepatic or extrahepatic dilation, accounting for age. Spleen: No splenomegaly. Pancreas: No pancreatic ductal dilation. Adrenals: No adrenal nodule. Kidneys and ureters: No hydronephrosis. No renal cystic lesion which requires follow up. No solid mas s. Stomach, bowel and peritoneum: No gastric or small bowel dilation. No abnormal wall thickening. No pa thologic free fluid. Diverticulosis. No acute diverticulitis. Lymph nodes: No central or retroperitoneal adenopathy. Vessels: No infrarenal aortic aneurysm. Patent portal vein. PELVIS Reproductive organs: Uterus is absent. Ovaries are not identified. No free fluid in pelvis.. Bladder: Bladder is distended. No abnormal wall thickening. Pelvic lymph nodes: No pelvic adenopathy by size criteria. Bones: No aggressive osseous abnormality. Severe chronic compression fracture of L1. Mild compression fracture of T10, L3, L4 and L5. Other: No significant ventral or inguinal hernia. IMPRESSION: 1. Diverticulosis without acute diverticulitis. 2. Moderate hiatal hernia. 3. Distended urinary bladder. The finding may be secondary to intentional holding or bladder outlet o bstruction. 4. Trace right pleural effusion. Atelectasis at lung bases bilaterally. 5. Multiple chronic compression fractures, severe at L1 and mild at multiple other levels. Reviewed by: Kellen Grossman MD on 12/20/2023 5:08 PM PDT Approved by: Kellen Grossman MD on 12/20/2023 5:08 PM PDT Station ID: [id number]
[2023-12-20] MEDS: HYDROmorphone 0.5 MG/0.5 ML SYRINGE IVP PRN (17:21)
[2023-12-20] MEDS: ONDANSETRON 4 MG/2 ML VIAL IVP PRN (17:21)
[2023-12-20] MEDS: SODIUM CHLORIDE 0.9% 1,000 ML IV SCH (19:23)
[2023-12-20] MEDS: FAMOTIDINE 20 MG TABLET PO SCH (20:46)
[2023-12-20] MEDS: carvediloL 12.5 MG TABLET PO SCH (20:46)
[2023-12-21] MEDS: ONDANSETRON ODT 4 MG TABLET TL PRN (01:06)
[2023-12-21] MEDS: ACETAMINOPHEN 325 MG TABLET PO PRN (02:57)
[2023-12-21 06:20] LABS: BASOPHILS % (AUTO) 0.1 %; EOSINOPHILS % (AUTO) 0.2 %; HCT - HEMATOCRIT 36.2 % (37.0-47.0); HGB - HEMOGLOBIN 12.3 g/dL (12.0-16.0); LYMPHOCYTES % (AUTO) 23.2 %; MEAN CORPUSCULAR VOLUME 82.3 fL (81.0-99.0); MEAN PLATELET VOLUME 9.2 fL (7.9-10.8); MONOCYTES # (AUTO) 0.8 10^3/uL (0.0-1.0); MONOCYTES % (AUTO) 9.1 %; NEUTROPHILS # (AUTO) 5.6 10^3/uL (1.5-6.6); PLT - PLATELET COUNT 249 10^3/uL (130-450); RED CELL DISTRIBUTION WIDTH 12.2 % (12.0-15.0); WHITE BLOOD COUNT 8.4 x10^3/uL (4.8-10.8)
[2023-12-21 06:43] LABS: BILIRUBIN,DIRECT < 0.10 mg/dL (0.03-0.18)
[2023-12-21 06:45] LABS: ALBUMIN 3.7 g/dL (3.2-5.5); ALKALINE PHOSPHATASE 37 IU/L (42-121); ALT ALANINE AMINOTRANSFERASE 10 IU/L (10-60); AST ASPARTATE AMINOTRANSFERASE 20 IU/L (10-42); BILIRUBIN,TOTAL 0.6 mg/dL (0.2-1.0); BUN - BLOOD UREA NITROGEN 12 mg/dL (6-20); CALCIUM 8.6 mg/dL (8.5-10.3); CARBON DIOXIDE - CO2 21 mmol/L (21-32); CHLORIDE 92 mmol/L (101-111); CREATININE 1.3 mg/dL (0.6-1.3); GFR - MDRD 39 (>89); GLUCOSE 129 mg/dL (74-104); POTASSIUM 3.6 mmol/L (3.5-4.5); SODIUM 122 mmol/L (135-145); TOTAL PROTEIN 6.6 g/dL (6.4-8.9)
[2023-12-21] MEDS: cefTRIAXone 2 GM VIAL IVP SCH (09:28)
[2023-12-21] MEDS: ASPIRIN EC 81 MG TABLET PO SCH (09:28)
[2023-12-21] MEDS: hydrALAZINE 10 MG TABLET PO SCH (09:28)
[2023-12-21] MEDS: ENOXAPARIN 40 MG/0.4 ML SYRINGE SUBQ SCH (09:29)
[2023-12-21] MEDS: cefTRIAXone 2 GM in SODIUM CHLORIDE 0.9% MINIBAG 100 ML IV SCH (10:25)
--- NOTE | 2023-12-21 11:10 | PROVIDER PROGRESS NOTE ---
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 -- Will closely monitor her labs for sodium every 6 hours. --Started on IV normal saline. She was given 3% NS in the ED therefore urine studies will likely be invalid. Na uptrending slowly. (2) Headache Conclusion/Plan: --Fall on 12/[address] Repeat CT head on 01/16 negative. --Holding home aspirin. (3) UTI (urinary tract infection) Conclusion/Plan: --Started on IV ceftriaxone for her E. coli UTI. --Cultures pending. Qualifiers: Urinary tract infection type: acute cystitis Hematuria presence: without hematuria Qualified Code(s): N30.00 - Acute cystitis without hematuria (4) Abdominal pain Conclusion/Plan: --CT abd/pelvis showing hiatal hernia. Started on famotidine. --Her abdominal pain has improved. (3) UTI (urinary tract infection) Qualifiers: Urinary tract infection type: acute cystitis Hematuria presence: without hematuria Qualified Code(s): N30.00 - Acute cystitis without hematuria (5) Type 2 diabetes mellitus Assessment/Plan: --SSI. A1c is pending. --She may need Glipizide held on discharge given her age and low oral intake. (6) Hypertension Qualifiers: Hypertension type: unspecified Qualified Code(s): I10 - Essential (primary) hypertension Assessment/Plan: --Holding losartan and chlorthalidone due to hyponatremia. --Started on Hydralazine 10 mg BID. - Current Meds Current Meds: Current Medications Generic Name Dose Route Start Last Admin Trade Name Freq PRN Reason Stop Dose Admin Acetaminophen 650 mg 12/20/23 15:48 12/21/23 02:57 Acetaminophen 325 Mg Tablet PO 650 mg Q4HR PRN Administration Pain 1 to 4, or Fever Aspirin 81 mg 12/21/23 09:00 12/21/23 09:28 Aspirin Ec 81 Mg Tablet PO 81 mg DAILY CLEMENTE Administration Carvedilol 12.5 mg 12/20/23 21:00 12/21/23 09:28 Carvedilol 12.5 Mg Tablet PO 12.5 mg BID CLEMENTE Administration Enoxaparin Sodium 40 mg 12/21/23 09:00 12/21/23 09:29 Enoxaparin 40 Mg/0.4 Ml Syringe SUBQ 40 mg DAILY CLEMENTE Administration Famotidine 20 mg 12/20/23 21:00 12/21/23 09:28 Famotidine 20 Mg Tablet PO 20 mg BID CLEMENTE Administration Hydralazine HCl 20 mg 12/21/23 09:00 12/21/23 09:28 Hydralazine 10 Mg Tablet PO 20 mg BID CLEMENTE Administration Hydromorphone HCl 0.5 mg 12/20/23 15:48 12/20/23 21:07 Hydromorphone 0.5 Mg/0.5 Ml Syringe IVP 0.5 mg Q2H PRN Administration Pain 8 to 10 Sodium Chloride 1,000 mls @ 100 mls/hr 12/20/23 19:00 12/21/23 05:14 Normal Saline 0.9% IV 100 mls/hr .Q10H CELMENTE Administration Ceftriaxone Sodium 2 gm/ 100 mls @ 200 mls/hr 12/21/23 10:30 12/21/23 10:25 Sodium Chloride IV 200 mls/hr DAILY CLEMENTE Administration Ondansetron HCl 4 mg 12/20/23 15:48 12/21/23 01:06 Ondansetron Odt 4 Mg Tablet TL 4 mg Q6HR PRN Administration Nausea / Vomiting Ondansetron HCl 4 mg 12/20/23 15:48 12/20/23 17:21 Ondansetron 4 Mg/2 Ml Vial IVP 4 mg Q6HR PRN Administration Nausea / Vomiting Sodium Chloride 10 ml 12/20/23 17:00 12/21/23 09:29 Sodium Chloride Flush 0.9% 10 Ml Syringe IVP 10 ml 0100,0900,1700 CLEMENTE Administration - Lab Result Fish Bone Diagrams: 12/21/23 06:15 12/21/23 06:15 - Additional Planning My Orders: My Active Orders 12/20/23 13:36 HEMOGLOBIN A1c% [CHEM] Routine 12/20/23 15:48 Activity Orders [RC] Q2HR IO [RC] IOSHIFT Incentive Spirometry - RT [RC] .TID Initiate Bowel Care Protocol [RC] .protocol Initiate Line Care Protocol [RC] QSHIFT Initiate Personal Care Protoco [RC] .protocol Oxygen Therapy [RC] .PRN Vital Signs [RC] 0800,1600,0000 Acetaminophen [Tylenol] 650 mg PO Q4HR PRN HYDROcod/ACETAM 5/325 [[place] 5/325] 1 tab PO Q4HR PRN HYDROmorphone 0.5MG SYRINGE [Dilaudid 0.5MG Syringe] 0.5 mg IVP Q2H PRN Ondansetron Inj [Zofran Inj] 4 mg IVP Q6HR PRN Ondansetron Odt [Zofran Odt] 4 mg TL Q6HR PRN Sodium Chloride Flush 0.9% [Normal Saline Flush 0.9%] 10 ml IVP PRN PRN Code Status [OTHERS] Routine Condition of Patient [OTHERS] Routine DVT Prophylaxis [OTHERS] Routine 12/20/23 16:01 hydrALAZINE INJ [Apresoline Inj] 10 mg IVP Q6H PRN 12/20/23 Dinner Regular Diet [DIET] 12/20/23 17:00 Sodium Chloride Flush 0.9% [Normal Saline Flush 0.9%] 10 ml IVP 0100,0900,1700 12/20/23 19:00 Sodium Chloride 0.9% [Normal Saline 0.9%] 1,000 ml IV 100 mls/hr 12/20/23 21:00 Famotidine [Pepcid] 20 mg PO BID carvediloL [Coreg] 12.5 mg PO BID 12/21/23 Evaluate and Treat OT [OT] Routine Evaluate and Treat PT [PT] Routine 12/21/23 09:00 Aspirin EC [Ecotrin] 81 mg PO DAILY Enoxaparin [Lovenox] 40 mg SUBQ DAILY hydrALAZINE [Apresoline] 20 mg PO BID 12/21/23 10:14 Blood Glucose Checks - Eating [RC] 0800,1200,1700,2100 Initiate Hypoglycemia Protocol [RC] .protocol 12/21/23 10:30 cefTRIAXone [Rocephin] 2 gm Sodium Chloride 0.9% Minibag [Normal Saline 0.9% Minibag] 100 ml IV DAILY 12/21/23 11:00 polyethylene glycoL 3350 [Miralax] 17 gm PO DAILY 12/21/23 12:00 SODIUM [CHEM] Q6H Insulin Lispro [Humalog Kwikpen U-100] 1 - 5 unit SUBQ 0800,1200,1700,2100 12/21/23 18:00 SODIUM [CHEM] Q6H 12/22/23 05:00 BMP - BASIC METABOLIC PANEL [CHEM] DAILYLAB CBC [CBC - COMP BLD CT W/AUTO DIFF] [HEME] DAILYLAB 12/23/23 05:00 BMP - BASIC METABOLIC PANEL [CHEM] DAILYLAB CBC [CBC - COMP BLD CT W/AUTO DIFF] [HEME] DAILYLAB 12/24/23 05:00 BMP - BASIC METABOLIC PANEL [CHEM] DAILYLAB CBC [CBC - COMP BLD CT W/AUTO DIFF] [HEME] DAILYLAB 12/25/23 05:00 BMP - BASIC METABOLIC PANEL [CHEM] DAILYLAB CBC [CBC - COMP BLD CT W/AUTO DIFF] [HEME] DAILYLAB Subjective - Subjective Patient Reports: Feeling Better, Resting Comfortably, Other (Na improving. She is eating a little more. Abdominal pain improved.) Objective Vital Signs: Vital Signs - 24 hr 12/20/23 12/20/23 12/20/23 13:06 16:00 16:53 Temperature 36.5 C 36.6 C Heart Rate 63 58 L Heart Rate [ 70 Brachial] Respiratory 18 18 Rate Blood Pressure 181/75 H 183/74 H Blood Pressure [Left Brachial artery] Blood Pressure 176/85 H [Right Brachial artery] O2 Saturation 100 100 If not protocol 2 2 : Oxygen Flow, liters/minute 12/20/23 12/20/23 12/21/23 17:08 22:04 00:54 Temperature 36.7 C Heart Rate Heart Rate [ 61 Brachial] Respiratory 20 Rate Blood Pressure Blood Pressure 145/71 H [Left Brachial artery] Blood Pressure 174/86 H [Right Brachial artery] O2 Saturation 100 98 If not protocol : Oxygen Flow, liters/minute 12/21/23 08:00 Temperature 36.6 C Heart Rate Heart Rate [ 67 Brachial] Respiratory 16 Rate Blood Pressure Blood Pressure [Left Brachial artery] Blood Pressure 144/75 H [Right Brachial artery] O2 Saturation 97 If not protocol : Oxygen Flow, liters/minute Oxygen O2 Source Room air I&O (Last 24 Hrs): Intake and Output Totals x24h 12/19/23 12/20/23 12/21/23 23:59 23:59 23:59 Intake Total 1150 1385 Output Total 750 600 Balance 400 785 General: Alert, Oriented x3, Cooperative 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 Cardiovascular: Regular rate, Normal S1, Normal S2, No murmurs Respiratory: Chest non-tender, No respiratory distress, Breath sounds nml Abdomen: Normal bowel sounds, Soft, No tenderness, No hepatospenomegaly, No masses - Results Results: Laboratory Results WBC 8.4 x10^3/uL (4.8-10.8) 12/21/23 06:15 RBC 4.40 10^6/uL (4.20-5.40) 12/21/23 06:15 Hgb 12.3 g/dL (12.0-16.0) 12/21/23 06:15 Hct 36.2 % (37.0-47.0) L 12/21/23 06:15 MCV 82.3 fL (81.0-99.0) 12/21/23 06:15 MCH 28.0 pg (27.0-31.0) 12/21/23 06:15 MCHC 34.0 g/dL (32.0-36.0) 12/21/23 06:15 RDW 12.2 % (12.0-15.0) 12/21/23 06:15 Plt Count 249 10^3/uL (130-450) 12/21/23 06:15 MPV 9.2 fL (7.9-10.8) 12/21/23 06:15 Neut # (Auto) 5.6 10^3/uL (1.5-6.6) 12/21/23 06:15 Lymph # (Auto) 2.0 10^3/uL (1.5-3.5) 12/21/23 06:15 [place] # (Auto) 0.8 10^3/uL (0.0-1.0) 12/21/23 06:15 Eos # (Auto) 0.0 10^3/uL (0.0-0.7) 12/21/23 06:15 Baso # (Auto) 0.0 10^3/uL (0.0-0.1) 12/21/23 06:15 Absolute Nucleated RBC 0.00 x10^3/uL 12/21/23 06:15 Nucleated RBC % 0.0 /100WBC 12/21/23 06:15 Sodium 122 mmol/L (135-145) L 12/21/23 06:15 Potassium 3.6 mmol/L (3.5-4.5) 12/21/23 06:15 Chloride 92 mmol/L (101-111) L 12/21/23 06:15 Carbon Dioxide 21 mmol/L (21-32) 12/21/23 06:15 Anion Gap 9.0 (6-13) 12/21/23 06:15 BUN 12 mg/dL (6-20) 12/21/23 06:15 Creatinine 1.3 mg/dL (0.6-1.3) 12/21/23 06:15 Estimated GFR (MDRD) 39 (>89) L 12/21/23 06:15 Glucose 129 mg/dL (74-104) H 12/21/23 06:15 Calcium 8.6 mg/dL (8.5-10.3) 12/21/23 06:15 Total Bilirubin 0.6 mg/dL (0.2-1.0) 12/21/23 06:15 Direct Bilirubin < 0.10 mg/dL (0.03-0.18) 12/21/23 06:15 AST 20 IU/L (10-42) 12/21/23 06:15 ALT 10 IU/L (10-60) 12/21/23 06:15 Alkaline Phosphatase 37 IU/L (42-121) L 12/21/23 06:15 Total Protein 6.6 g/dL (6.4-8.9) 12/21/23 06:15 Albumin 3.7 g/dL (3.2-5.5) 12/21/23 06:15 Globulin 2.9 g/dL (2.1-4.2) 12/21/23 06:15 Albumin/Globulin Ratio 1.3 (1.0-2.2) 12/20/23 13:36 Lipase 72 U/L (11-82) 12/20/23 13:36 - Procedures Procedures: Procedures (02/05/18) COLONOSCOPY (08/25/13) EXCISION OF PERINEUM SKIN, EXTERNAL APPROACH (02/05/18) INSPECTION OF BLADDER, ENDO (02/05/18) REPAIR CUL-DE-SAC, OPEN APPROACH (02/05/18) REPAIR PELVIC SUBCU/FASCIA, OPEN APPROACH (02/05/18) RESECTION OF UTERUS, VIA NATURAL OR ARTIFICIAL OPENING (02/05/18)
[2023-12-21 11:27] LABS: ESTIMATED AVERAGE GLUCOSE 166 mg/dL (70-100); HEMOGLOBIN A1c% 7.4 % (4.27-6.07)
[2023-12-21] MEDS: polyethylene glycoL 3350 17 GM PACKET PO SCH (12:29)
[2023-12-21] MEDS: INSULIN LISPRO 300 UNIT/3 ML PEN SUBQ SCH (12:29)
--- NOTE | 2023-12-21 13:32 | PHARMACY PROGRESS NOTE ---
- Best Possible Medication History Admit Date and Time: 12/20/23 1548 Processed by: Pharmacy Medications reviewed in ED?: Yes Medication History completed: Yes Patient Interview: Completed Secondary Source(s): Insurance records As the person ultimately responsible for medication therapy, providers are able to order a medication from an existing home medication list in [facility] via the "Reconcile Routine" prior to Confirmation of that medication by administrative support specialist. Such practice is discouraged except when the physician, in their clinical judgment, deems that a medical need exists for a medication without regard to previous use.
[2023-12-21] MEDS: ATORVASTATIN 10 MG TABLET PO SCH (20:38)
[2023-12-22 06:01] LABS: BASOPHILS % (AUTO) 0.5 %; EOSINOPHILS # (AUTO) 0.1 10^3/uL (0.0-0.7); EOSINOPHILS % (AUTO) 1.9 %; HCT - HEMATOCRIT 37.6 % (37.0-47.0); HGB - HEMOGLOBIN 12.6 g/dL (12.0-16.0); LYMPHOCYTES # (AUTO) 2.6 10^3/uL (1.5-3.5); LYMPHOCYTES % (AUTO) 41.8 %; MEAN CORPUSCULAR HEMOGLOBIN 28.4 pg (27.0-31.0); MEAN CORPUSCULAR HGB CONC 33.5 g/dL (32.0-36.0); MEAN CORPUSCULAR VOLUME 84.7 fL (81.0-99.0); MEAN PLATELET VOLUME 8.8 fL (7.9-10.8); MONOCYTES # (AUTO) 0.6 10^3/uL (0.0-1.0); MONOCYTES % (AUTO) 9.2 %; NEUTROPHILS # (AUTO) 2.9 10^3/uL (1.5-6.6); NEUTROPHILS % (AUTO) 46.3 %; PLT - PLATELET COUNT 228 10^3/uL (130-450); RED BLOOD COUNT 4.44 10^6/uL (4.20-5.40); RED CELL DISTRIBUTION WIDTH 12.8 % (12.0-15.0); WHITE BLOOD COUNT 6.2 x10^3/uL (4.8-10.8)
[2023-12-22 06:30] LABS: CALCIUM 9.1 mg/dL (8.5-10.3); CREATININE 1.3 mg/dL (0.6-1.3); POTASSIUM 3.6 mmol/L (3.5-4.5)
[2023-12-22 08:04] VITALS: BP 157/73; O2SAT 97
[2023-12-22] MEDS: DOCUSATE SODIUM 250 MG CAPSULE PO SCH (08:51)
[2023-12-22] MEDS: SENNA 8.6 MG TABLET PO SCH (08:51)
--- NOTE | 2023-12-22 13:45 | DISCHARGE SUMMARY ---
Discharge Summary Admit Date: 12/20/23 Discharge Date: 12/22/23 Discharging Provider: Olivia Hughes MD Primary Care Provider: TRISTEN Williamson Code Status: Attempt Resuscitation Condition at Discharge: Fair Discharge Disposition: 01 Home, Self Care - DIAGNOSES Discharge Diagnoses with Status of Each Condition: 1. Acute confusion With ground-level fall at home 2. Hyponatremia 3. Headache 4. E. coli UTI 5. Generalized abdominal pain present on admission and resolved 6. Type 2 diabetes mellitus, without complications, without long-term use of insulin 7. Hypertension - HPI History of Present Illness: Patient is an 78-year-old female with a past medical history of hypertension who presented to the ED due to complaints of nausea and vomiting after sustaining a head injury on 12/16. During his ED visit CT scans were unremarkable. Her she was also diagnosed with a UTI at this time and was given oral antibiotics. She presented today due to ongoing nausea and vomiting. Blood work revealed a sodium of 120. Repeat CT head was also performed which was negative. Remainder of labs were unremarkable. During my evaluation, patient complained of a headache. She had a small bruise on her forehead. She also endorsed epigastric abdominal pain. Patient denies any fevers or chills. She denies any vision changes. She was not having any seizures at home. 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 While efforts are made to proofread this document, sound alike and grammatical errors may occur. Greater than 30 minutes spent coordinating discharge - ALLERGIES Allergies/Adverse Reactions: Allergies Allergy/AdvReac Type Severity Reaction Status Date / Time amlodipine AdvReac Unknown Verified 12/20/23 13:10 simvastatin [From Zocor] AdvReac Unknown Verified 12/20/23 13:10 - MEDICATIONS Home Medications: Ambulatory Orders Medication Instructions Recorded Confirmed Aspirin [Aspir 81] 81 mg PO DAILY 08/24/13 12/21/23 Carvedilol 25 mg PO BID 08/24/13 12/21/23 [place]ley-3/Dha/Epa/Fish Oil [Fish Oil 1,000 mg PO BID 02/02/18 12/21/23 1,000 mg Softgel] Chlorthalidone 12.5 mg PO DAILY 10/07/19 12/21/23 cephALEXin [Keflex] 500 mg PO BID #10 cap 12/19/23 12/21/23 Alendronate [Fosamax] 70 mg PO OAW 12/21/23 12/21/23 Losartan [Cozaar] 50 mg PO BID 12/21/23 12/21/23 Rosuvastatin Calcium 10 mg PO QPM 12/21/23 12/21/23 metFORMIN [Glucophage] 500 mg PO BID 12/21/23 12/21/23 - LABS Result Diagrams: 12/22/23 04:54 12/22/23 04:54
--- NOTE | 2023-12-22 13:48 | Discharge Plan ---
Discharge Plan Problem Reviewed?: Yes Disposition: Home, Self Care Condition: Fair Diet: Regular Activity Restrictions: Activity as Tolerated Shower Restrictions: No Driving Restrictions: Yes (no driving) Health Concerns: You presented to the emergency room because you fell at home. You were complaining of abdominal aching. Had a headache. And we found you to have a low salt level of 120. Normal is 135. This caused you to be confused.You had already been seen on December 16 and been diagnosed with a urinary tract infection and was on Keflex antibiotic. As such, we think that your urinary tract infection and antibiotics caused you to have a bad appetite. You are not eating and drinking enough. This caused the falls, confusion. Once we treated you with salt water through an infusion in your vein, and antibiotics, you have returned to baseline. Plan of Treatment: Please complete antibiotic therapy. You will need a total of 7 days. That means that you will need 2 more days of antibiotics once you get home. Resume the Keflex that was already prescribed. Please see your primary care provider in follow-up in the next 1 to 2 weeks. Because of the falls, and the achiness, we are ordering home health physical therapy and Occupational Therapy to see you at home and help you improve your mobility. Care Goals: To remain at home and finish antibiotics for urinary tract infection Assessment: patient is alert and oriented to person and place and situation but not time. Follow-Up Care: Home Health - PT, Home Health - OT No Smoking: If you smoke, Please STOP! Call for help.
== END 2023-12-22 14:25 | disposition home or self-care (01) | DRG 641 ==
LOC: EDUNIT# → ED 12:59 → MS2 15:48
PROVIDERS: ADMIT Family Medicine; ATTEND Specialist
DX: E87.1 Hypo-osmolality and hyponatremia (principal); N30.00 Acute cystitis without hematuria; R41.0 Disorientation, unspecified; R51.9 Headache, unspecified; B96.20 Unspecified Escherichia coli [E. coli] as the cause of diseases classified elsewhere; R10.13 Epigastric pain; R10.84 Generalized abdominal pain; E11.9 Type 2 diabetes mellitus without complications; I10 Essential (primary) hypertension; R11.2 Nausea with vomiting, unspecified; S00.83XA Contusion of other part of head, initial encounter; W19.XXXA Unspecified fall, initial encounter; E78.00 Pure hypercholesterolemia, unspecified; M19.90 Unspecified osteoarthritis, unspecified site; Z79.82 Long term (current) use of aspirin; Z79.84 Long term (current) use of oral hypoglycemic drugs; Z79.899 Other long term (current) drug therapy
CPT/HCPCS: 36415; 70450; 74177; 80048; 80053; 80076; 83036; 83690; 84295; 85025; 96361; 96374; 97162; 97165; 99285; A9270; J1170; J1650; Q0162; Q9967

== ENCOUNTER 2024-01-07 09:29 | Outpatient (CLI) | payer MEDICARE, MEDICAID ==
[2024-01-07 12:29] LABS: BUN - BLOOD UREA NITROGEN 18 mg/dL (6-20); CALCIUM 9.5 mg/dL (8.5-10.3); CARBON DIOXIDE - CO2 27 mmol/L (21-32); CHLORIDE 88 mmol/L (101-111); CHOL/HDL RATIO 2.4 (<4.4); CHOLESTEROL 160 mg/dL; CREATININE 1.2 mg/dL (0.6-1.3); GFR - MDRD 43 (>89); GLUCOSE 210 mg/dL (74-104); HDL CHOLESTEROL 68 mg/dL; LDL CHOLESTEROL,CALCULATED 68 mg/dL; POTASSIUM 3.3 mmol/L (3.5-4.5); SODIUM 124 mmol/L (135-145); TRIGLYCERIDES 119 mg/dL (48-352); VLDL CHOLESTEROL 24 mg/dL
[2024-01-07 13:22] LABS: ESTIMATED AVERAGE GLUCOSE 163 mg/dL (70-100); HEMOGLOBIN A1c% 7.3 % (4.27-6.07)
== END 2024-01-07 09:30 | disposition home or self-care (01) ==
LOC: LAB.N 09:29
PROVIDERS: ATTEND Nurse Practitioner Family
DX: I10 Essential (primary) hypertension (principal); E87.1 Hypo-osmolality and hyponatremia; E78.5 Hyperlipidemia, unspecified; E11.22 Type 2 diabetes mellitus with diabetic chronic kidney disease
CPT/HCPCS: 36415; 80048; 80061; 83036; 83721

== ENCOUNTER 2024-01-12 09:00 | Outpatient (CLI) | payer MEDICARE, MEDICAID ==
[2024-01-12 12:39] LABS: CALCIUM 9.3 mg/dL (8.5-10.3); CREATININE 1.4 mg/dL (0.6-1.3); POTASSIUM 3.9 mmol/L (3.5-4.5)
== END 2024-01-12 09:01 | disposition home or self-care (01) ==
LOC: LAB.N 09:00
PROVIDERS: ATTEND Nurse Practitioner Family
DX: E87.1 Hypo-osmolality and hyponatremia (principal)
CPT/HCPCS: 36415; 80048

== ENCOUNTER 2024-03-08 08:55 | Outpatient (CLI) | payer MEDICARE, MEDICAID ==
[2024-03-08 18:46] LABS: CALCIUM 8.9 mg/dL (8.5-10.3); CREATININE 1.3 mg/dL (0.6-1.3)
== END 2024-03-08 08:56 | disposition home or self-care (01) ==
LOC: LAB.N 08:55
PROVIDERS: ATTEND Nurse Practitioner Family
DX: Z02.89 Encounter for other administrative examinations (principal); E87.1 Hypo-osmolality and hyponatremia; I10 Essential (primary) hypertension; E11.22 Type 2 diabetes mellitus with diabetic chronic kidney disease
CPT/HCPCS: 36415; 80048

== ENCOUNTER 2024-03-28 01:16 | Outpatient (CLI) | payer MEDICARE, MEDICAID | END 2024-03-28 23:59 | disposition critical access hospital (66) | LOC: EMS 01:16 | PROVIDERS: ATTEND Emergency Medicine | DX: I10 Essential (primary) hypertension (principal); R51.9 Headache, unspecified | CPT/HCPCS: A0425; A0429 ==

== ENCOUNTER 2024-03-28 03:49 | Emergency (ER) | payer MEDICARE, MEDICAID ==
[2024-03-28] MEDS ORDERED: PROMETHAZINE 25 MG/1 ML VIAL ONE (05:01)
--- NOTE | 2024-03-28 05:05 | ED Physician Documentation ---
History of Present Illness - Stated complaint Stated Complaint: GALO/NECK PX - Chief complaint Chief Complaint: Neuro - History obtained from History obtained from: Patient, Family - Additonal information Additional information: The patient returns to the emergency department with chief complaint of continued headache and neck pain in the setting of hypertension. She was just seen here and discharged less than an hour ago after being treated with clonidine and having marked improvement in her blood pressure. She was also treated with Toradol at that time. The patient had no neurologic symptoms and had had a headache for some days prior. The patient is disgruntled that she was discharged. Her daughter states that she has had this headache before after some days of vomiting and was discovered to have a low sodium at that time. She was admitted then. Please see my note for a full description of the patient's issues with hypertension. 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 : None, Other HEENT: None, Other Psych: Depression Musculoskeletal: Osteoarthritis Derm: None - Past Surgical History Past Surgical History: Yes General: Appendectomy, Other HEENT: Cataracts - Present Medications Home Medications: Ambulatory Orders Medication Instructions Recorded Confirmed Aspirin [Aspir 81] 81 mg PO DAILY 08/24/13 03/28/24 Carvedilol 25 mg PO BID 08/24/13 03/28/24 [place]-3/Dha/Epa/Fish Oil [Fish Oil 1,000 mg PO BID 02/02/18 03/28/24 1,000 mg Softgel] Chlorthalidone 12.5 mg PO DAILY 10/07/19 03/28/24 Alendronate [Fosamax] 70 mg PO OAW 12/21/23 03/28/24 Losartan [Cozaar] 50 mg PO BID 12/21/23 03/28/24 Rosuvastatin Calcium 10 mg PO QPM 12/21/23 03/28/24 metFORMIN [Glucophage] 500 mg PO BID 12/21/23 03/28/24 Metoprolol Succinate [Toprol Xl] 50 mg PO DAILY 03/28/24 03/28/24 - Allergies Allergies/Adverse Reactions: Allergies Allergy/AdvReac Type Severity Reaction Status Date / Time amlodipine AdvReac Unknown Verified 03/28/24 04:28 simvastatin [From Zocor] AdvReac Unknown Verified 03/28/24 04:28 - Social History Does the pt smoke?: No Smoking Status: Never smoker Does the pt drink ETOH?: No Does the pt have substance abuse?: No - Immunizations Immunizations are current?: Yes - POLST Patient has POLST: No PD ED PE NORMAL - Vitals Vital signs reviewed: Yes - General General: Alert and 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, No acute distress, Well developed/nourished - HEENT HEENT: Atraumatic, PERRL, EOMI, Moist mucous membranes - Neck Neck: Supple, no meningeal sign - Cardiac Cardiac: RRR, No murmur, Strong equal pulses - Respiratory Respiratory: No respiratory distress, Clear bilaterally - Abdomen Abdomen: Soft, Non tender, Non distended - Derm Derm: Normal color, Warm and dry, No rash - Extremities Extremities: No deformity, No edema - Neuro Neuro: Other (Alert, conversant, grossly intact.) - Psych Psych: Normal mood, Normal affect Results - Vitals Vitals: Vital Signs - 24 hr 03/28/24 03/28/24 03/28/24 04:19 04:57 05:40 Temperature 36.7 C Heart Rate 50 L 51 L 55 L Respiratory 16 16 16 Rate Blood Pressure 187/74 H 205/70 H 206/70 H O2 Saturation 100 100 97 03/28/24 03/28/24 05:58 06:25 Temperature 36.9 C 36.9 C Heart Rate 56 L 64 Respiratory 14 16 Rate Blood Pressure 176/90 H 194/79 H O2 Saturation 98 100 Oxygen O2 Source Room air - Labs Labs: Laboratory Tests 03/28/24 03/28/24 05:34 05:34 WBC 9.0 RBC 4.86 Hgb 14.0 Hct 42.9 MCV 88.3 MCH 28.8 MCHC 32.6 RDW 12.9 Plt Count 276 MPV 9.3 Neut # (Auto) 4.2 Lymph # (Auto) 3.8 H [place] # (Auto) 0.7 Eos # (Auto) 0.2 Baso # (Auto) 0.1 Absolute Nucleated RBC 0.00 Nucleated RBC % 0.0 Sodium 134 L Potassium 4.1 Chloride 103 Carbon Dioxide 22 Anion Gap 9.0 BUN 17 Creatinine 1.3 Estimated GFR (MDRD) 39 L Glucose 187 H Calcium 9.0 Total Bilirubin 0.6 AST 19 ALT 12 Alkaline Phosphatase 53 Total Protein 6.9 Albumin 4.0 Globulin 2.9 Albumin/Globulin Ratio 1.4 Lipase 63 - Rads (name of study) CT head Relevant Findings:: Final report received, See rad report (Negative) PD Medical Decision Making - ED course Complexity details: reviewed old records, reviewed results, re-evaluated patient, considered differential, d/w patient, d/w family ED course: I discussed at length with the patient and her daughter that the patient has not at any time displayed any signs or symptoms of hypertensive emergency. Her blood pressure responded extremely well to the clonidine and this should not have worn off at this time. The patient's laboratory studies were unremarkable and of note, with regard to the patient and family's concerns, showed a sodium which was nearly normal at 134. The patient was treated with IV fluids and Phenergan for both nausea and headache as she had already received Toradol. On reevaluation the patient is feeling much better. She was stable for discharge. I have discussed with the patient and her daughter the importance of following up with her primary care physician for further guidance on her blood pressure. I have advised her to follow the instructions on the discharge papers from her visit a couple of hours ago. Departure - Departure Disposition: 01 Home, Self Care Clinical Impression: Hypertension Qualifiers: Hypertension type: unspecified Qualified Code(s): I10 - Essential (primary) hypertension Headache Qualifiers: Headache type: unspecified Headache chronicity pattern: episodic headache Intractability: not intractable Qualified Code(s): R51.9 - Headache, unspecified Condition: Stable Instructions: ED Cephalgia Unspecified, ED Hypertension Conf Out Of Control Comments: Again, you do not have any symptoms of a stroke or any other emergency related to your high blood pressure. You are already treated for your headache on previous visits, as well as for your blood pressure, and your CT scan of the head looks good this morning. Your laboratory studies also look very good and your sodium is Only 1 point below normal which is not nearly enough to cause any symptoms. Please follow the instructions you were given on your previous discharge papers which outlined the plan for your medications. You should call to make the next available appointment with your nurse practitioner to discuss your blood pressure medicines. Forms: PCP List
[2024-03-28] MEDS: PROMETHAZINE INJ 25 MG in SODIUM CHLORIDE 0.9% 50 ML IV STA (05:35)
[2024-03-28] MEDS: SODIUM CHLORIDE 0.9% 1,000 ML IV STA (05:35)
[2024-03-28 05:52] LABS: BASOPHILS # (AUTO) 0.1 10^3/uL (0.0-0.1); BASOPHILS % (AUTO) 0.6 %; EOSINOPHILS # (AUTO) 0.2 10^3/uL (0.0-0.7); EOSINOPHILS % (AUTO) 2.5 %; HCT - HEMATOCRIT 42.9 % (37.0-47.0); LYMPHOCYTES # (AUTO) 3.8 10^3/uL (1.5-3.5); LYMPHOCYTES % (AUTO) 42.1 %; MEAN CORPUSCULAR HEMOGLOBIN 28.8 pg (27.0-31.0); MEAN CORPUSCULAR HGB CONC 32.6 g/dL (32.0-36.0); MEAN CORPUSCULAR VOLUME 88.3 fL (81.0-99.0); MEAN PLATELET VOLUME 9.3 fL (7.9-10.8); MONOCYTES # (AUTO) 0.7 10^3/uL (0.0-1.0); NEUTROPHILS # (AUTO) 4.2 10^3/uL (1.5-6.6); NEUTROPHILS % (AUTO) 46.5 %; PLT - PLATELET COUNT 276 10^3/uL (130-450); RED BLOOD COUNT 4.86 10^6/uL (4.20-5.40); RED CELL DISTRIBUTION WIDTH 12.9 % (12.0-15.0)
[2024-03-28 06:08] LABS: ALBUMIN/GLOBULIN RATIO 1.4 (1.0-2.2); BILIRUBIN,TOTAL 0.6 mg/dL (0.2-1.0); CREATININE 1.3 mg/dL (0.6-1.3); POTASSIUM 4.1 mmol/L (3.5-4.5); TOTAL PROTEIN 6.9 g/dL (6.4-8.9)
[2024-03-28] MEDS: ACETAMINOPHEN 325 MG TABLET PO STA (06:32)
[2024-03-28 07:23] VITALS: BP 183/87; O2SAT 97
--- NOTE | 2024-03-28 07:40 | CT Report ---
PROCEDURE: Head WO INDICATIONS: headache TECHNIQUE: Noncontrast 4.5 mm thick angled axial sections acquired from the foramen magnum to the vertex. For r adiation dose reduction, the following was used: automated exposure control, adjustment of mA and/or kV according to patient size. COMPARISON: 12/20/2023. FINDINGS: Image quality: Excellent. CSF spaces: Basal cisterns are patent. No extra-axial fluid collections. Ventricles are normal in size and shape. Brain: No midline shift. No intracranial masses or hemorrhage. Moreno-white matter interface is norm al. Intracranial carotid calcifications. Age-related volume loss and small vessel ischemic change. Skull and face: Calvarium and visualized facial bones are intact, without suspicious lesions. Sinuses: Visualized sinuses and mastoids are clear. IMPRESSION: No acute intracranial pathology. Findings are concordant with preliminary interpretation provided by [facility]. Reviewed by: Syd Mijares MD on 03/28/2024 7:39 AM PDT Approved by: Syd Mijares MD on 03/28/2024 7:39 AM PDT Station ID: [id number]
== END 2024-03-28 07:21 | disposition home or self-care (01) ==
LOC: ED 03:49
DX: R51.9 Headache, unspecified (principal); I1A.0 Resistant hypertension
CPT/HCPCS: 36415; 70450; 80053; 83690; 85025; 93005; 99284; A9270

== ENCOUNTER 2024-03-30 16:38 | Outpatient (CLI) | payer MEDICARE, MEDICAID | END 2024-03-30 16:39 | disposition EMS.NT | LOC: EMS 16:38 | DX: I10 Essential (primary) hypertension (principal); R51.9 Headache, unspecified ==

== ENCOUNTER 2024-04-05 09:01 | Outpatient (CLI) | payer MEDICARE, MEDICAID ==
[2024-04-05 12:36] LABS: BASOPHILS % (AUTO) 0.6 %; EOSINOPHILS # (AUTO) 0.2 10^3/uL (0.0-0.7); EOSINOPHILS % (AUTO) 2.3 %; HCT - HEMATOCRIT 42.9 % (37.0-47.0); HGB - HEMOGLOBIN 13.6 g/dL (12.0-16.0); LYMPHOCYTES # (AUTO) 2.3 10^3/uL (1.5-3.5); LYMPHOCYTES % (AUTO) 35.2 %; MEAN CORPUSCULAR HEMOGLOBIN 28.5 pg (27.0-31.0); MEAN CORPUSCULAR HGB CONC 31.7 g/dL (32.0-36.0); MEAN CORPUSCULAR VOLUME 89.9 fL (81.0-99.0); MEAN PLATELET VOLUME 9.5 fL (7.9-10.8); MONOCYTES # (AUTO) 0.5 10^3/uL (0.0-1.0); MONOCYTES % (AUTO) 7.8 %; NEUTROPHILS # (AUTO) 3.6 10^3/uL (1.5-6.6); NEUTROPHILS % (AUTO) 53.6 %; PLT - PLATELET COUNT 257 10^3/uL (130-450); RED BLOOD COUNT 4.77 10^6/uL (4.20-5.40); RED CELL DISTRIBUTION WIDTH 12.8 % (12.0-15.0); WHITE BLOOD COUNT 6.6 x10^3/uL (4.8-10.8)
[2024-04-05 12:50] LABS: ESTIMATED AVERAGE GLUCOSE 148 mg/dL (70-100); HEMOGLOBIN A1c% 6.8 % (4.27-6.07)
[2024-04-05 13:00] LABS: PHOSPHORUS 3.3 mg/dL (2.5-5.0)
[2024-04-05 13:03] LABS: ALBUMIN 4.3 g/dL (3.2-5.5); ALBUMIN/GLOBULIN RATIO 1.5 (1.0-2.2); BILIRUBIN,TOTAL 0.6 mg/dL (0.2-1.0); CALCIUM 9.6 mg/dL (8.5-10.3); CREATININE 1.3 mg/dL (0.6-1.3); POTASSIUM 3.9 mmol/L (3.5-4.5); TOTAL PROTEIN 7.2 g/dL (6.4-8.9)
[2024-04-05 13:05] LABS: CREATININE,URINE 28.7 mg/dL; PROTEIN/CREATININE RATIO,URINE 0.3 (<=0.2)
[2024-04-05 13:06] LABS: THYROID STIMULATING HORMONE 7.79 uIU/mL (0.34-5.60)
[2024-04-05 13:15] LABS: FERRITIN 46.5 ng/mL (11.0-306.8)
== END 2024-04-05 09:02 | disposition home or self-care (01) ==
LOC: LAB.N 09:01
PROVIDERS: ATTEND Nurse Practitioner Family
DX: Z02.89 Encounter for other administrative examinations (principal); D70.9 Neutropenia, unspecified; N25.81 Secondary hyperparathyroidism of renal origin; R80.9 Proteinuria, unspecified; I12.9 Hypertensive chronic kidney disease with stage 1 through stage 4 chronic kidney disease, or unspecified chronic kidney disease; E11.22 Type 2 diabetes mellitus with diabetic chronic kidney disease; N18.9 Chronic kidney disease, unspecified; E83.30 Disorder of phosphorus metabolism, unspecified; D63.1 Anemia in chronic kidney disease; R51.9 Headache, unspecified
CPT/HCPCS: 36415; 80053; 82570; 82607; 82728; 82746; 83036; 83540; 83970; 84100; 84156; 84439; 84443; 84466; 85025

== ENCOUNTER 2024-05-13 02:18 | Inpatient (IN) ==
[2024-05-13] MEDS ORDERED: iohexoL-300 100 ML VIAL ONE (02:53)
[2024-05-13] MEDS: HYDROmorphone 0.5 MG/0.5 ML SYRINGE IVP STA (02:59)
[2024-05-13 03:12] LABS: BASOPHILS % (AUTO) 0.2 %; EOSINOPHILS # (AUTO) 0.1 10^3/uL (0.0-0.7); EOSINOPHILS % (AUTO) 0.8 %; HCT - HEMATOCRIT 34.9 % (37.0-47.0); HGB - HEMOGLOBIN 12.3 g/dL (12.0-16.0); LYMPHOCYTES # (AUTO) 2.2 10^3/uL (1.5-3.5); MEAN CORPUSCULAR HEMOGLOBIN 28.5 pg (27.0-31.0); MEAN CORPUSCULAR HGB CONC 35.2 g/dL (32.0-36.0); MEAN CORPUSCULAR VOLUME 80.8 fL (81.0-99.0); MEAN PLATELET VOLUME 8.2 fL (7.9-10.8); MONOCYTES # (AUTO) 0.8 10^3/uL (0.0-1.0); MONOCYTES % (AUTO) 8.5 %; NEUTROPHILS % (AUTO) 65.8 %; PLT - PLATELET COUNT 249 10^3/uL (130-450); RED BLOOD COUNT 4.32 10^6/uL (4.20-5.40); RED CELL DISTRIBUTION WIDTH 12.2 % (12.0-15.0); WHITE BLOOD COUNT 9.1 x10^3/uL (4.8-10.8)
[2024-05-13 03:41] LABS: ALBUMIN 3.8 g/dL (3.2-5.5); ALBUMIN/GLOBULIN RATIO 1.3 (1.0-2.2); BILIRUBIN,TOTAL 0.6 mg/dL (0.2-1.0); CALCIUM 9.1 mg/dL (8.5-10.3); CREATININE 1.1 mg/dL (0.6-1.3); POTASSIUM 2.9 mmol/L (3.5-4.5); TOTAL PROTEIN 6.7 g/dL (6.4-8.9)
--- NOTE | 2024-05-13 03:50 | ED Physician Documentation ---
History of Present Illness Stated complaint Stated Complaint: BACK PAIN Chief complaint Chief Complaint: Back Pain History obtained from History obtained from: Patient, Family (daughter) and EMS Additonal information Additional information: 78yF, tagalog speaking (LOKESH Felder acting as tip stitcher) with h ckd, htn, prior admission for hyponatremia, p/w multiple medical issues tonight. she initially asked her son (who lives with her) to call ems because she was having R upper back pain at a former surgical site. 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 daughter at bedside states patient has had chronic pain intermittently for "a while", prompting multiple ED visits. she has had issues with medication noncompliance and apparently behaving confused per daughter. daughter is unable to give a complete history and states she does not know a lot of details about her mother's medical care. patient herself is slow to answer questions and displaying some confusion. Meds/Allgy Home Medications Ambulatory Orders Medication Instructions Recorded Confirmed carvedilol 12.5 mg tablet 25 mg PO BID 08/24/13 05/13/24 omega 0-cjl-fxg-fish oil 1,000 mg 1,000 mg PO BID 02/02/18 05/13/24 (120 mg-180 mg) capsule (Fish Oil) chlorthalidone 25 mg tablet 12.5 mg PO DAILY 10/07/19 05/13/24 Rosuvastatin Calcium 10 mg PO QPM 12/21/23 05/13/24 metformin 500 mg tablet 500 mg PO BID 12/21/23 05/13/24 hydralazine 25 mg tablet 25 mg PO TID 05/05/24 05/13/24 magnesium oxide-magnesium amino 300 cap PO DAILY 05/05/24 05/13/24 acid chelate 300 mg capsule (Magnesium (oxide/AA chelate)) Allergies Allergies Allergy/AdvReac Type Severity Reaction Status Date / Time amlodipine AdvReac Unknown Verified 05/13/24 02:38 simvastatin (From Zocor) AdvReac Unknown Verified 05/13/24 02:38 [facility] Medical History Medical History (Updated 05/13/24 @ 04:08 by Judith Farias MD) Hypertension Social History Social History (Updated 05/13/24 @ 02:35 by BRINDA Victor) Smoking Status: Never smoker Do you dip or chew tobacco?: No Do you vape?: No Living arrangement: At home Living Condition: With family Support Person: Yes Relationship: Caregiver Level: Independent Do you feel safe in your home environment?: Yes Suffered physical, verbal, emotional, or financial abuse?: No History of Abuse: No ETOH Use: None Substance Use: denies use POLST Patient has POLST: No Exam Constitutional normal general appearance, no apparent distress and average body habitus elderly appearing HENMT normocephalic and head/scalp atraumatic Eyes PERRL, EOMs intact bilaterally and no nystagmus Neck/C-Spine visual inspection normal Chest inspection of chest normal discomfort to palpation over R posterolateral chest wall at site of 5cm horizontal surgical scar Respiratory breath sounds equal bilaterally, normal respiratory effort and clear to auscultation bilaterally Cardiovascular normal heart rate noted and regular rhythm noted Gastrointestinal abdomen normal to inspection, abdomen soft to palpation and nontender to palpation Back/Pelvis spine normal to inspection Extremities normal to inspection Psychiatry confused appearing Results Vitals Vitals: Vital Signs - 24 hr 05/13/24 02:17 05/13/24 02:59 Temperature 36.3 C L Temperature Source Temporal Artery Scan Pulse Rate 60 Respiratory Rate 16 Blood Pressure 148/73 H O2 Saturation 98 O2 Source Room air Pain Intensity 8 8 Oxygen O2 Source Room air Labs Labs: Laboratory Tests 05/13/24 03:06 WBC 9.1 RBC 4.32 Hgb 12.3 Hct 34.9 L MCV 80.8 L MCH 28.5 MCHC 35.2 RDW 12.2 Plt Count 249 MPV 8.2 Neut # (Auto) 6.0 Lymph # (Auto) 2.2 [place] # (Auto) 0.8 Eos # (Auto) 0.1 Baso # (Auto) 0.0 Absolute Nucleated RBC 0.00 Nucleated RBC % 0.0 Sodium 115 L* Potassium 2.9 L Chloride 81 L Carbon Dioxide 24 Anion Gap 10.0 BUN 23 H Creatinine 1.1 Estimated GFR (MDRD) 48 L Glucose 140 H Calcium 9.1 Total Bilirubin 0.6 AST 16 ALT 13 Alkaline Phosphatase 46 Total Protein 6.7 Albumin 3.8 Globulin 2.9 Albumin/Globulin Ratio 1.3 Lipase 75 PD Medical Decision Making ED course ED course: 78yF presents with acute on chronic upper back pain at site of prior surgical scar, as well as apparent confusion corroborated by daughter. patient is found t o have profound hyponatremia on labwork with NA 115 as well as hypokalemia with potassium 2.9. Hypertonic saline provided as well as a liter of NS and potassium supplementation. plan to admit for management of severe electrolyte derangements in setting of AMS. Discharge Plan Discharge Patient Disposition: [facility] DC/Xfer Condition: Stable Clinical Impression: Acute hyponatremia, Confusion Prescriptions: No Action carvedilol 12.5 MG tablet 25 mg PO BID omega 2-jdd-xei-fish oil [Fish Oil] 1,000 MG capsule 1,000 mg PO BID chlorthalidone 25 MG tablet 12.5 mg PO DAILY Patient Comments: take 1 tablet by mouth once daily metformin 500 MG tablet 500 mg PO BID Patient Comments: take 1 tablet twice a day by mouth every morning and evening with meals Rosuvastatin Calcium 10 MG Tablet 10 mg PO QPM Patient Comments: take 1 tablet by mouth nightly hydralazine 25 mg tablet 25 mg PO TID Patient Comments: take 1 tablet by mouth every morning and 1 tablet by mouth every ... (REFER TO PRESCRIPTION NOTES). Magnesium (oxide/AA chelate) 300 mg capsule 300 cap PO DAILY Print Language: Lithuanian
[2024-05-13] MEDS ORDERED: BENZONATATE 100 MG CAPSULE PO PRN (04:07)
--- NOTE | 2024-05-13 04:21 | HISTORY & PHYSICAL EXAMINATION ---
Chief Complaint Chief Complaint Chief Complaint: ams History of Present Illness History of Present Illness HPI Comment/Other: details obtained from chart review and discussion with ed staff given cart connection issues pt with complaints of back pain + confusion over past several days. no falls or head injuries report. pt's son lives with her. no chest pain, fevers, chills, sob reported. no focal neuro deficits noted or reported by ed provider. pt has had h/o same ams in past with low Na, for which she has been admitted in the past. pt has had Na as low as 119, typically responding well to hypertonic saline / IVF. no seizures reported. pt has h/o chf, for which she states diuretic. also with h/o t2dm, on metformin. Review of Systems per ed charting - cart connection issues [facility] Medical History Medical History (Updated 05/13/24 @ 04:08 by Judith Farias MD) Hypertension Social History Social History (Updated 05/13/24 @ 02:35 by BRINDA Victor) Smoking Status: Never smoker Do you dip or chew tobacco?: No Do you vape?: No Living arrangement: At home Living Condition: With family Support Person: Yes Relationship: Caregiver Level: Independent Do you feel safe in your home environment?: Yes Suffered physical, verbal, emotional, or financial abuse?: No History of Abuse: No ETOH Use: None Substance Use: denies use POLST Patient has POLST: No Meds/Allgy Home Medications Ambulatory Orders Medication Instructions Recorded Confirmed carvedilol 12.5 mg tablet 25 mg PO BID 08/24/13 05/13/24 omega 3-mco-jka-fish oil 1,000 mg 1,000 mg PO BID 02/02/18 05/13/24 (120 mg-180 mg) capsule (Fish Oil) chlorthalidone 25 mg tablet 12.5 mg PO DAILY 10/07/19 05/13/24 Rosuvastatin Calcium 10 mg PO QPM 12/21/23 05/13/24 metformin 500 mg tablet 500 mg PO BID 12/21/23 05/13/24 hydralazine 25 mg tablet 25 mg PO TID 05/05/24 05/13/24 magnesium oxide-magnesium amino 300 cap PO DAILY 05/05/24 05/13/24 acid chelate 300 mg capsule (Magnesium (oxide/AA chelate)) Allergies Allergies Allergy/AdvReac Type Severity Reaction Status Date / Time amlodipine AdvReac Unknown Verified 05/13/24 02:38 simvastatin (From Zocor) AdvReac Unknown Verified 05/13/24 02:38 Exam Exam per ed charting given cart connection issues Conclusion/Plan Problem List (1) Acute hyponatremia: (2) Confusion: Plan pt with - - hyponatremia Na 115 h/o same, with admission pt has responded to ivf / hypertonic saline in the past hypertonic saline ordered in ED, will trend bmp levels no clear etiology but possibly d/t diuretic usage - ams in setting of above no focal deficits head CT ordered continue neuro checks - elevated bp in setting of above continue bb and hydralazine for now diuretic held as it could worsen hypoNa check 2d echo given h/o chf - t2dm check a1c, on ssi f/u labs na, neuro status further orders per clinical course Lab Results 05/13/24 04:26 05/13/24 03:06
[2024-05-13] MEDS: POTASSIUM CHLORIDE 20 MEQ/15 ML UDC PO STA (04:23)
[2024-05-13] MEDS: SODIUM CHLORIDE 0.9% 500 ML IV ONE (04:24)
[2024-05-13] MEDS: POTASSIUM CHLOR 10 MEQ/100 ML 10 MEQ/100 ML BAG IV STA (04:24)
[2024-05-13] MEDS: SODIUM CHLORIDE 3% HYPERTONIC 0 ML IV STA (04:39)
[2024-05-13 04:40] LABS: BASOPHILS % (AUTO) 0.3 %; EOSINOPHILS # (AUTO) 0.1 10^3/uL (0.0-0.7); EOSINOPHILS % (AUTO) 0.8 %; HCT - HEMATOCRIT 34.3 % (37.0-47.0); HGB - HEMOGLOBIN 12.1 g/dL (12.0-16.0); LYMPHOCYTES # (AUTO) 2.4 10^3/uL (1.5-3.5); LYMPHOCYTES % (AUTO) 26.4 %; MEAN CORPUSCULAR HEMOGLOBIN 28.6 pg (27.0-31.0); MEAN CORPUSCULAR HGB CONC 35.3 g/dL (32.0-36.0); MEAN CORPUSCULAR VOLUME 81.1 fL (81.0-99.0); MEAN PLATELET VOLUME 8.1 fL (7.9-10.8); MONOCYTES # (AUTO) 0.8 10^3/uL (0.0-1.0); MONOCYTES % (AUTO) 8.9 %; NEUTROPHILS # (AUTO) 5.6 10^3/uL (1.5-6.6); PLT - PLATELET COUNT 228 10^3/uL (130-450); RED BLOOD COUNT 4.23 10^6/uL (4.20-5.40); RED CELL DISTRIBUTION WIDTH 12.4 % (12.0-15.0); WHITE BLOOD COUNT 8.9 x10^3/uL (4.8-10.8)
[2024-05-13] MEDS: SODIUM CHLORIDE 3% HYPERTONIC 50 ML IV STA (04:47)
[2024-05-13 04:53] LABS: MAGNESIUM 1.6 mg/dL (1.7-2.3)
[2024-05-13 05:00] LABS: CHOL/HDL RATIO 2.4 (<4.4); CHOLESTEROL 139 mg/dL; HDL CHOLESTEROL 58 mg/dL; LDL CHOLESTEROL,CALCULATED 61 mg/dL; LDL/HDL RATIO 1.1 (<4.4); TRIGLYCERIDES 100 mg/dL; VLDL CHOLESTEROL 20 mg/dL
[2024-05-13 05:03] LABS: ALBUMIN 3.5 g/dL (3.2-5.5); ALBUMIN/GLOBULIN RATIO 1.3 (1.0-2.2); ALKALINE PHOSPHATASE 42 IU/L (42-121); ALT ALANINE AMINOTRANSFERASE 12 IU/L (10-60); AST ASPARTATE AMINOTRANSFERASE 15 IU/L (10-42); BILIRUBIN,TOTAL 0.5 mg/dL (0.2-1.0); BUN - BLOOD UREA NITROGEN 22 mg/dL (6-20); CALCIUM 8.5 mg/dL (8.5-10.3); CARBON DIOXIDE - CO2 25 mmol/L (21-32); CHLORIDE 85 mmol/L (101-111); CREATININE 1.1 mg/dL (0.6-1.3); GFR - MDRD 48 (>89); GLUCOSE 132 mg/dL (74-104); POTASSIUM 2.9 mmol/L (3.5-4.5); SODIUM 118 mmol/L (135-145); TOTAL PROTEIN 6.1 g/dL (6.4-8.9)
[2024-05-13] MEDS: INSULIN LISPRO 300 UNIT/3 ML PEN SUBQ SCH (05:29)
[2024-05-13 05:30] LABS: BILIRUBIN,URINE NEGATIVE (NEGATIVE); GLUCOSE, URINE (UA) NEGATIVE (NEGATIVE); KETONES,URINE (UA) NEGATIVE (NEGATIVE); LEUKOCYTE ESTERASE, URINE NEGATIVE (NEGATIVE); NITRITE,URINE POSITIVE (NEGATIVE); OCCULT BLOOD,URINE NEGATIVE (NEGATIVE); PROTEIN,URINE NEGATIVE (NEGATIVE); UROBILINOGEN,URINE 0.2 (NORMAL) E.U./dL (NORMAL)
[2024-05-13] MEDS: hydrALAZINE 25 MG TABLET PO SCH (05:33)
[2024-05-13 05:34] LABS: CLARITY,URINE CLEAR (CLEAR)
[2024-05-13 05:37] LABS: BACTERIA,URINE Moderate /HPF (None Seen); RBC,URINE 0-5 /HPF (0-5); SQUAMOUS EPITHELIAL CELL,UR FEW Squamous (<= Few); WBC,URINE 0-3 /HPF (0-5)
[2024-05-13 06:39] LABS: CALCIUM 8.5 mg/dL (8.5-10.3); CREATININE 1.1 mg/dL (0.6-1.3); POTASSIUM 4.2 mmol/L (3.5-4.5)
--- NOTE | 2024-05-13 07:52 | CT Report ---
PROCEDURE: CT Head - [facility] [id number] INDICATIONS: ams TECHNIQUE: Noncontrast 4.5 mm thick angled axial sections acquired from the foramen magnum to the vertex. For r adiation dose reduction, the following was used: automated exposure control, adjustment of mA and/or kV according to patient size. COMPARISON: 04/15/2024. FINDINGS: Image quality: Excellent. CSF spaces: Basal cisterns are patent. No extra-axial fluid collections. Ventricles are normal in size and shape. Brain: No midline shift. No intracranial masses or hemorrhage. Moreno-white matter interface is norm al. Intracranial carotid calcifications. Age-related volume loss and small vessel ischemic change. Skull and face: Calvarium and visualized facial bones are intact, without suspicious lesions. Sinuses: Visualized sinuses and mastoids are clear. IMPRESSION: No acute intracranial pathology. Reviewed by: Syd Mijares MD on 05/13/2024 7:51 AM PDT Approved by: Syd Mijares MD on 05/13/2024 7:51 AM PDT Station ID: [id number]
[2024-05-13] MEDS: MAGNESIUM OXIDE 400 MG TABLET PO SCH (08:05)
--- NOTE | 2024-05-13 08:21 | XRAY Report ---
PROCEDURE: XR Chest 2V INDICATIONS: back pain R upper back at site of old surgicalscar TECHNIQUE: 2 views of the chest were acquired. COMPARISON: Plain films dated 04/15/2024, CT abdomen and pelvis dated 12/20/2023. FINDINGS: Surgical changes and devices: None. Lungs and pleura: No pleural effusions or pneumothorax. Lungs are clear. Mediastinum: Mediastinal contours appear normal. Heart size is normal. Bones and chest wall: No suspicious bony lesions. Chronic severe L1 compression. Overlying soft tiss ues appear unremarkable. IMPRESSION: No acute cardiopulmonary process. Chronic severe L1 compression. Reviewed by: Syd Mijares MD on 05/13/2024 8:19 AM PDT Approved by: Syd Mijares MD on 05/13/2024 8:19 AM PDT Station ID: [id number]
--- NOTE | 2024-05-13 08:39 | XRAY Report ---
PROCEDURE: XR Chest 1V INDICATIONS: back pain TECHNIQUE: One view of the chest was acquired. COMPARISON: 04/15/2024 and 05/13/2024. FINDINGS: Surgical changes and devices: None. Lungs and pleura: No definite focal infiltrate. No significant pleural effusion or pneumothorax. Mediastinum: Mediastinal contours appear normal. Heart size is normal. Bones and chest wall: No suspicious bony lesions. Compression deformity involving L1 vertebral body is again seen and not significantly changed. Overlying soft tissues appear unremarkable. IMPRESSION: No acute cardiopulmonary process. Findings are concordant with preliminary interpretation provided by [facility]. Reviewed by: Lenny Waters MD on 05/13/2024 8:38 AM PDT Approved by: Lenny Waters MD on 05/13/2024 8:38 AM PDT Station ID: [id number]
[2024-05-13 08:41] LABS: CALCIUM 8.7 mg/dL (8.5-10.3); CREATININE 1.2 mg/dL (0.6-1.3); POTASSIUM 3.8 mmol/L (3.5-4.5)
[2024-05-13] MEDS: SODIUM CHLORIDE 0.9% 1,000 ML IV STA (08:50)
[2024-05-13] MEDS: OMEGA-3 ACID ETHYL ESTERS 1 GM CAPSULE PO SCH (09:32)
[2024-05-13] MEDS: carvediloL 12.5 MG TABLET PO SCH (09:32)
[2024-05-13 09:59] LABS: ESTIMATED AVERAGE GLUCOSE 166 mg/dL (70-100); HEMOGLOBIN A1c% 7.4 % (4.27-6.07)
[2024-05-13 10:23] LABS: CALCIUM 8.6 mg/dL (8.5-10.3); CREATININE 1.2 mg/dL (0.6-1.3); POTASSIUM 3.7 mmol/L (3.5-4.5)
[2024-05-13 12:36] LABS: CALCIUM 8.8 mg/dL (8.5-10.3); CREATININE 1.1 mg/dL (0.6-1.3); POTASSIUM 3.6 mmol/L (3.5-4.5)
--- NOTE | 2024-05-13 12:58 | PHARMACY PROGRESS NOTE ---
Best Possible Medication History Admit Date and Time: 05/13/24 [id number] Processed by: Nursing Medications reviewed in ED?: Yes Medication History completed: Yes Patient Interview: Completed Secondary Source(s): Pharmacy records and Insurance records [facility] Statement: As the person ultimately responsible for medication therapy, providers are able to order a medication from an existing home medication list in [facility] via the "Reconcile Routine" prior to Confirmation of that medication by administrative support assistant. Such practice is discouraged except when the physician, in their clinical judgment, deems that a medical need exists for a medication without regard to previous use.
[2024-05-13 14:49] LABS: CALCIUM 8.8 mg/dL (8.5-10.3); CREATININE 1.1 mg/dL (0.6-1.3); POTASSIUM 3.4 mmol/L (3.5-4.5)
[2024-05-13 17:14] LABS: CALCIUM 9.2 mg/dL (8.5-10.3); CREATININE 1.1 mg/dL (0.6-1.3); POTASSIUM 3.5 mmol/L (3.5-4.5)
[2024-05-13] MEDS: ATORVASTATIN 10 MG TABLET PO SCH (20:32)
[2024-05-13] MEDS: ACETAMINOPHEN 325 MG TABLET PO PRN (20:41)
[2024-05-13] MEDS: diphenhydrAMINE 25 MG CAPSULE PO SCH (20:43)
[2024-05-13] MEDS ORDERED: ROSUVASTATIN CALCIUM 10 MG PO SCH (21:00)
[2024-05-13 21:25] LABS: CALCIUM 9.3 mg/dL (8.5-10.3); CREATININE 1.2 mg/dL (0.6-1.3); POTASSIUM 3.7 mmol/L (3.5-4.5)
[2024-05-14 01:25] LABS: CALCIUM 9.2 mg/dL (8.5-10.3); CREATININE 1.2 mg/dL (0.6-1.3); POTASSIUM 3.7 mmol/L (3.5-4.5)
[2024-05-14 05:15] LABS: HCT - HEMATOCRIT 37.6 % (37.0-47.0); MEAN CORPUSCULAR HEMOGLOBIN 28.7 pg (27.0-31.0); MEAN CORPUSCULAR HGB CONC 34.6 g/dL (32.0-36.0); MEAN PLATELET VOLUME 8.1 fL (7.9-10.8); RED BLOOD COUNT 4.53 10^6/uL (4.20-5.40); RED CELL DISTRIBUTION WIDTH 12.9 % (12.0-15.0); WHITE BLOOD COUNT 6.4 x10^3/uL (4.8-10.8)
[2024-05-14 05:35] LABS: CALCIUM 9.3 mg/dL (8.5-10.3); CREATININE 1.2 mg/dL (0.6-1.3); POTASSIUM 3.7 mmol/L (3.5-4.5)
--- NOTE | 2024-05-14 07:59 | PROVIDER PROGRESS NOTE ---
Subjective Subjective Subjective: Patient is feeling improved today. Yesterday, she was feeling very shaky, and she states that this is resolved. She has a good appetite, and was able to eat all of her dinner. She says that she still feels pretty weak. She has not really gotten out of bed since she has been here. She is worried about her blood pressure being on the lower side; she did state that the hydralazine as well as the hydrochlorothiazide that she was taking were both new. Current Medications Current Medications Current Medications: Current Medications Generic Name Dose Route Start Last Admin Trade Name Freq PRN Reason Stop Dose Admin Acetaminophen 650 mg 05/13/24 04:07 05/13/24 20:41 Acetaminophen 325 Mg Tablet PO 650 mg Q6H PRN Administration pain, fever Atorvastatin Calcium 20 mg 05/13/24 21:00 05/13/24 20:32 Atorvastatin 10 Mg Tablet PO 20 mg QPM CLEMENTE Administration Benzonatate 100 mg 05/13/24 04:07 Benzonatate 100 Mg Capsule PO TID PRN Cough Carvedilol 25 mg 05/13/24 09:00 05/13/24 20:35 Carvedilol 12.5 Mg Tablet PO 25 mg BID CLEMENTE Administration Diphenhydramine HCl 25 mg 05/13/24 21:00 05/13/24 20:43 Diphenhydramine 25 Mg Capsule PO 05/14/24 20:59 25 mg ONCE CLEMENTE Administration Insulin Human Lispro 1 - 5 unit 05/13/24 05:00 05/14/24 05:38 Insulin Lispro 300 Unit/3 Ml Pen SUBQ Not Given Q4H CLEMENTE Protocol Magnesium Oxide 400 mg 05/13/24 08:00 05/13/24 08:05 Magnesium Oxide 400 Mg Tablet PO 400 mg DAILYWM CLEMENTE Administration Vnrio-7-[id number] Ethyl Esters 1 gm 05/13/24 09:00 05/13/24 20:40 [place]-3 Acid Ethyl Esters 1 Gm Capsule PO 1 gm BID CLEMENTE Administration Objective Vital Signs/Intake & Output Reviewed Vital Signs: Yes Vital Signs: Vital Signs x48h Temp Pulse Resp BP Pulse Ox O2 Flow Rate 05/14/24 07:00 57 L 19 136/52 H 98 2 05/14/24 06:00 53 L 19 124/59 L 97 2 05/14/24 05:00 57 L 19 130/63 96 2 05/14/24 04:00 56 L 15 149/80 H 98 2 05/14/24 03:00 55 L 21 119/60 98 2 05/14/24 02:00 55 L 17 109/69 96 2 05/14/24 01:00 58 L 19 139/72 H 95 2 05/14/24 00:00 97.9 F 61 18 99/48 L 97 Intake & Output: Intake & Output 05/12/24 05/13/24 05/14/24 05/15/24 05:59 05:59 05:59 05:59 Intake Total 650 / 650 899 / 899 Output Total 300 / 300 450 / 450 Balance 350 / 350 449 / 449 Weight (kg) 62.7 kg 60.4 kg Objective General Appearance: positive No acute distress, Alert and Lethargic (mild) Eyes Bilateral: positive Normal inspection, PERRL, EOMI and No scleral icterus ENT: positive ENT inspection nml, Pharynx nml and No signs of dehydration Neck: positive Nml inspection, Thyroid nml, No JVD and Trachea midline Respiratory: positive Chest non-tender, No respiratory distress and Breath sounds nml; negative Wheezes, Rales or Rhonchi Cardiovascular: positive Regular rate & rhythm, No murmur and No gallop; negative Systolic murmur, Diastolic murmur, Gallop/S3 or Friction rub Abdomen: positive Non-tender and Nml bowel sounds; negative Guarding, Rebound, Hepatomegaly, Splenomegaly or Mass Back: positive Nml inspection; negative CVA tenderness (R) or CVA tenderness (L) Skin: positive Color nml, No rash and Warm; negative Dry, Cyanosis, Diaphoresis or Skin rash Extremities: positive Non-tender, Full ROM and No pedal edema; negative Joint swelling Neurologic/Psychiatric: positive Oriented x3 and Mood/affect nml; negative Facial droop Lab Results 05/14/24 04:25 05/14/24 09:03 Other Labs: Lab Results x24hrs 05/14/24 05/14/24 05/14/24 Range/Units 04:25 01:02 00:48 WBC 6.4 (4.8-10.8) x10^3/uL RBC 4.53 (4.20-5.40) 10^6/uL Hgb 13.0 (12.0-16.0) g/dL Hct 37.6 (37.0-47.0) % MCV 83.0 (81.0-99.0) fL MCH 28.7 (27.0-31.0) pg MCHC 34.6 (32.0-36.0) g/dL RDW 12.9 (12.0-15.0) % Plt Count 287 (130-450) 10^3/uL MPV 8.1 (7.9-10.8) fL Sodium 129 L 129 L (135-145) mmol/L Potassium 3.7 3.7 (3.5-4.5) mmol/L Chloride 97 L 97 L (101-111) mmol/L Carbon Dioxide 24 24 (21-32) mmol/L Anion Gap 8.0 8.0 (6-13) BUN 24 H 24 H (6-20) mg/dL Creatinine 1.2 1.2 (0.6-1.3) mg/dL Estimated GFR (MDRD) 43 L 43 L (>89) Glucose 125 H 110 H (74-104) mg/dL POC Whole Bld Glucose 114 (70-100) mg/dL Estimat Average Glucose (70-100) mg/dL Hemoglobin A1c % (4.27-6.07) % Calcium 9.3 9.2 (8.5-10.3) mg/dL Nasal Screen MRSA (PCR) (NEGATIVE) 05/13/24 05/13/24 05/13/24 Range/Units 21:07 20:28 16:54 WBC (4.8-10.8) x10^3/uL RBC (4.20-5.40) 10^6/uL Hgb (12.0-16.0) g/dL Hct (37.0-47.0) % MCV (81.0-99.0) fL MCH (27.0-31.0) pg MCHC (32.0-36.0) g/dL RDW (12.0-15.0) % Plt Count (130-450) 10^3/uL MPV (7.9-10.8) fL Sodium 127 L 125 L (135-145) mmol/L Potassium 3.7 3.5 (3.5-4.5) mmol/L Chloride 95 L 94 L (101-111) mmol/L Carbon Dioxide 24 24 (21-32) mmol/L Anion Gap 8.0 7.0 (6-13) BUN 24 H 22 H (6-20) mg/dL Creatinine 1.2 1.1 (0.6-1.3) mg/dL Estimated GFR (MDRD) 43 L 48 L (>89) Glucose 184 H 149 H (74-104) mg/dL POC Whole Bld Glucose 155 (70-100) mg/dL Estimat Average Glucose (70-100) mg/dL Hemoglobin A1c % (4.27-6.07) % Calcium 9.3 9.2 (8.5-10.3) mg/dL Nasal Screen MRSA (PCR) (NEGATIVE) 05/13/24 05/13/24 05/13/24 Range/Units 16:33 14:22 12:32 WBC (4.8-10.8) x10^3/uL RBC (4.20-5.40) 10^6/uL Hgb (12.0-16.0) g/dL Hct (37.0-47.0) % MCV (81.0-99.0) fL MCH (27.0-31.0) pg MCHC (32.0-36.0) g/dL RDW (12.0-15.0) % Plt Count (130-450) 10^3/uL MPV (7.9-10.8) fL Sodium 121 L (135-145) mmol/L Potassium 3.4 L (3.5-4.5) mmol/L Chloride 91 L (101-111) mmol/L Carbon Dioxide 23 (21-32) mmol/L Anion Gap 7.0 (6-13) BUN 23 H (6-20) mg/dL Creatinine 1.1 (0.6-1.3) mg/dL Estimated GFR (MDRD) 48 L (>89) Glucose 219 H (74-104) mg/dL POC Whole Bld Glucose 158 118 (70-100) mg/dL Estimat Average Glucose (70-100) mg/dL Hemoglobin A1c % (4.27-6.07) % Calcium 8.8 (8.5-10.3) mg/dL Nasal Screen MRSA (PCR) (NEGATIVE) 05/13/24 05/13/24 05/13/24 Range/Units 12:10 12:09 10:01 WBC (4.8-10.8) x10^3/uL RBC (4.20-5.40) 10^6/uL Hgb (12.0-16.0) g/dL Hct (37.0-47.0) % MCV (81.0-99.0) fL MCH (27.0-31.0) pg MCHC (32.0-36.0) g/dL RDW (12.0-15.0) % Plt Count (130-450) 10^3/uL MPV (7.9-10.8) fL Sodium 122 L 120 L* (135-145) mmol/L Potassium 3.6 3.7 (3.5-4.5) mmol/L Chloride 91 L 88 L (101-111) mmol/L Carbon Dioxide 23 26 (21-32) mmol/L Anion Gap 8.0 6.0 (6-13) BUN 21 H 20 (6-20) mg/dL Creatinine 1.1 1.2 (0.6-1.3) mg/dL Estimated GFR (MDRD) 48 L 43 L (>89) Glucose 128 H 195 H (74-104) mg/dL POC Whole Bld Glucose (70-100) mg/dL Estimat Average Glucose (70-100) mg/dL Hemoglobin A1c % (4.27-6.07) % Calcium 8.8 8.6 (8.5-10.3) mg/dL Nasal Screen MRSA (PCR) NEGATIVE (NEGATIVE) 05/13/24 05/13/24 Range/Units 08:12 04:26 WBC (4.8-10.8) x10^3/uL RBC (4.20-5.40) 10^6/uL Hgb (12.0-16.0) g/dL Hct (37.0-47.0) % MCV (81.0-99.0) fL MCH (27.0-31.0) pg MCHC (32.0-36.0) g/dL RDW (12.0-15.0) % Plt Count (130-450) 10^3/uL MPV (7.9-10.8) fL Sodium 119 L* (135-145) mmol/L Potassium 3.8 (3.5-4.5) mmol/L Chloride 88 L (101-111) mmol/L Carbon Dioxide 25 (21-32) mmol/L Anion Gap 6.0 (6-13) BUN 21 H (6-20) mg/dL Creatinine 1.2 (0.6-1.3) mg/dL Estimated GFR (MDRD) 43 L (>89) Glucose 134 H (74-104) mg/dL POC Whole Bld Glucose (70-100) mg/dL Estimat Average Glucose 166 H (70-100) mg/dL Hemoglobin A1c % 7.4 H (4.27-6.07) % Calcium 8.7 (8.5-10.3) mg/dL Nasal Screen MRSA (PCR) (NEGATIVE) Diagnostic Imaging Diagnostic Imaging Results: positive Final report reviewed Diagnostic Imaging Comments: Chest x-ray shows no acute cardiopulmonary process, head CT shows no acute intracranial pathology. ABX Reporting Has patient been on IV antibiotics over the past 48 hours?: No Sepsis Event Note (H) Evaluation Current Stage of Sepsis: Ruled out Assessment/Plan Problem List (1) Acute hyponatremia: Impression: Patient presented with a sodium of 115. Goal correction was 6-8 mill equivalents over 24 hours. 129 this morning, with slight overcorrection. Overnight, D5W was not given. If sodium is stable at this time, we will continue with 6-8 mill equivalents per day goal, meaning goal by the end of today is 130. Will continue to monitor BMPs every 4 hours. Patient currently off IV fluids. Will hold hydrochlorothiazide indefinitely on discharge. Laboratory Tests 05/13/24 05/13/24 05/13/24 03:06 04:26 06:13 Sodium 115 L* 118 L* 118 L* 05/13/24 05/13/24 05/13/24 08:12 10:01 12:09 Sodium 119 L* 120 L* 122 L 05/13/24 05/13/24 05/13/24 14:22 16:54 21:07 Sodium 121 L 125 L 127 L 05/14/24 05/14/24 01:02 04:25 Sodium 129 L 129 L (2) Acute metabolic encephalopathy: Impression: Resolved. Patient is alert and oriented x 3, interactive. Likely due to electrolyte disturbances, acute hyponatremia. (3) Hypertension: Impression: Coreg continued. As patient was hypotensive yesterday, hydralazine and hydrochlorothiazide were held. If patient's blood pressure continues to be elevated, will reintroduce hydralazine at a lower dose, 25 mg twice daily. Qualifiers: Hypertension type: unspecified Qualified Code(s): I10 - Essential (primary) hypertension (4) Weakness: Impression: Likely due to above. Physical therapy, Occupational Therapy consulted, appreciate assistance and recommendations for possible placement.
[2024-05-14 09:34] LABS: CALCIUM 9.4 mg/dL (8.5-10.3); CREATININE 1.3 mg/dL (0.6-1.3)
[2024-05-14] MEDS: NITROFURANTOIN MACRO 100 MG CAPSULE PO SCH (11:15)
[2024-05-14 13:20] LABS: CALCIUM 9.8 mg/dL (8.5-10.3); CREATININE 1.3 mg/dL (0.6-1.3); POTASSIUM 3.7 mmol/L (3.5-4.5)
[2024-05-14 17:52] LABS: CALCIUM 9.8 mg/dL (8.5-10.3); CREATININE 1.2 mg/dL (0.6-1.3); POTASSIUM 3.7 mmol/L (3.5-4.5)
[2024-05-14 21:46] LABS: CALCIUM 9.4 mg/dL (8.5-10.3); CREATININE 1.4 mg/dL (0.6-1.3); POTASSIUM 3.7 mmol/L (3.5-4.5)
[2024-05-15] MEDS: BISACODYL 10 MG SUPP PR ONE (05:19)
[2024-05-15 05:41] LABS: HCT - HEMATOCRIT 40.5 % (37.0-47.0); HGB - HEMOGLOBIN 13.2 g/dL (12.0-16.0); MEAN CORPUSCULAR HEMOGLOBIN 28.1 pg (27.0-31.0); MEAN CORPUSCULAR HGB CONC 32.6 g/dL (32.0-36.0); MEAN CORPUSCULAR VOLUME 86.4 fL (81.0-99.0); MEAN PLATELET VOLUME 8.5 fL (7.9-10.8); RED BLOOD COUNT 4.69 10^6/uL (4.20-5.40); RED CELL DISTRIBUTION WIDTH 13.2 % (12.0-15.0); WHITE BLOOD COUNT 7.3 x10^3/uL (4.8-10.8)
[2024-05-15 05:48] LABS: CALCIUM 9.5 mg/dL (8.5-10.3); CREATININE 1.3 mg/dL (0.6-1.3); POTASSIUM 3.6 mmol/L (3.5-4.5)
[2024-05-15] MEDS: polyethylene glycoL 3350 17 GM PACKET PO SCH (08:13)
[2024-05-15 08:29] VITALS: O2SAT 98
--- NOTE | 2024-05-15 09:06 | Discharge Summary ---
"Discharge Summary Admit Date: 05/13/24 Discharge Date: 05/15/24 Discharging Provider: Dr. Tiera Fitzpatrick Code Status: Attempt Resuscitation DIAGNOSES Admission Diagnoses: Hyponatremia Altered mental status Elevated blood pressure Type 2 diabetes mellitus Discharge Diagnoses with Status of Each Condition: Acute hyponatremia Resolved. Patient presented with a sodium of 115, today it is 133. Patient encouraged to continue with oral hydration. Will hold chlorthalidone indefinitely on discharge. Acute metabolic encephalopathyresolved. Likely due to hyponatremia. HypertensionCoreg continue with good control blood pressure. Advised to hold home hydralazine and chlorthalidone. Weaknessphysical therapy recommend home physical therapy. Diabetescontinue metformin on discharge. HPI History of Present Illness: Per Dr. Almanzar: pt with complaints of back pain + confusion over past several days. no falls or head injuries report. pt's son lives with her. no chest pain, fevers, chills, sob reported. no focal neuro deficits noted or reported by ed provider. pt has had h/o same ams in past with low Na, for which she has been admitted in the past. pt has had Na as low as 119, typically responding well to hypertonic saline / IVF. no seizures reported. pt has h/o chf, for which she states diuretic. also with h/o t2dm, on metformin. CONSULTS | PROCEDURES Consultations: Physical therapy, occupational therapy, social work Procedures: Chest x-ray, head CT HOSPITAL COURSE Hospital Course: Patient is a 78-year-old female with a history of hypertension, as well as type 2 diabetes mellitus on metformin who presented with altered mentation. Patient's son lives with her. She had no focal neural deficits on admission. Head CT was done which was negative. UA at the time of admission was positive for urinary tract infection. Patient also to sodium of 115 at admission. This was slowly corrected to 133 today. She was advised to continue adequate p.o. intake, as well as hold her chlorthalidone on discharge. She was treated for urinary tract infection today is day 2 of 5 of treatment. We will be sending her home with 3 additional days of this. Patient was then evaluated by OT/PT; they recommended home with home PT. Social work is helping set this up. Patient was deemed suitable for discharge home. ALLERGIES Allergies Allergy/AdvReac Type Severity Reaction Status Date / Time amlodipine AdvReac Unknown Verified 05/13/24 02:38 simvastatin (From Zocor) AdvReac Unknown Verified 05/13/24 02:38 MEDICATIONS Ambulatory Orders Medication Instructions Recorded Confirmed omega 4-mcz-pse-fish oil 1,000 mg 1,000 mg PO BID 02/02/18 05/13/24 (120 mg-180 mg) capsule (Fish Oil) atorvastatin 10 mg tablet 20 mg (2 x 10 mg) PO QPM #30 tabs 05/15/24 carvedilol 12.5 mg tablet 25 mg (2 x 12.5 mg) PO BID #60 tabs 05/15/24 metformin 500 mg tablet 500 mg PO BID #60 tabs 05/15/24 nitrofurantoin 100 mg PO BID 3 days #6 caps 05/15/24 monohydrate/macrocrystals 100 mg capsule PHYSICAL EXAM AT DISCHARGE General Appearance: positive No acute distress and Alert; negative Anxious Eyes Bilateral: positive Normal inspection, PERRL and EOMI ENT: positive ENT inspection nml, Pharynx nml and No signs of dehydration Neck: positive Nml inspection and Thyroid nml Respiratory: positive Chest non-tender, No respiratory distress and Breath sounds nml; negative Wheezes, Rales or Rhonchi Cardiovascular: positive Regular rate & rhythm, No murmur and Irregularly irregular Peripheral Pulses: positive 2+ Abdomen: positive Non-tender and No organomegaly; negative Tenderness, Guarding, Rebound, Hepatomegaly, Splenomegaly or Bruit Back: positive Nml inspection; negative CVA tenderness (R) or CVA tenderness (L) Skin: positive Color nml and No rash; negative Warm or Dry Extremities: positive Non-tender, Full ROM and No pedal edema Neurologic/Psychiatric: positive Oriented x3, Motor nml and Mood/affect nml LABS 05/15/24 04:45 05/15/24 04:45 DIAGNOSTIC IMAGING Diagnostic Imaging Results: Final report reviewed Diagnostic Imaging Results Comments: Chest x-ray shows no acute cardiopulmonary process, CT head shows no acute infarcts. SEPSIS Current Stage of Sepsis: Ruled out QUALITY (Female Hip Fx Only) Was patient sent home on osteoporosis medication?: No FOLLOW UP Follow Up: Follow up with primary care physician. TIME SPENT Time Spent in Discharge (Minutes): 35 Discharge Plan Discharge Patient Disposition: Home Health Service Condition: Stable Prescriptions: New carvedilol 12.5 mg Tablet 25 mg PO BID Qty: 60 0RF nitrofurantoin monohyd/m-cryst 100 mg Capsule 100 mg PO BID 3 Days Qty: 6 0RF atorvastatin 10 mg Tablet 20 mg PO QPM Qty: 30 0RF Continued omega 3-jme-nom-fish oil [Fish Oil] 1,000 MG capsule 1,000 mg PO BID metformin 500 MG tablet 500 mg PO BID Qty: 60 0RF Discontinued carvedilol 12.5 MG tablet 25 mg PO BID chlorthalidone 25 MG tablet 12.5 mg PO DAILY Patient Comments: take 1 tablet by mouth once daily Rosuvastatin Calcium 10 MG Tablet 10 mg PO QPM Patient Comments: take 1 tablet by mouth nightly hydralazine 25 mg tablet 25 mg PO TID Patient Comments: take 1 tablet by mouth every morning and 1 tablet by mouth every ... (REFER TO PRESCRIPTION NOTES). magnesium oxide [MagOx] 400 mg (241.3 mg magnesium) tablet 400 mg PO BID Activity Restrictions: Activity as Tolerated Diet: Diabetic Health Concerns: You initially came in because you were feeling weak. You were found to have a urinary tract infection as well as a very low sodium. We started you on some IV fluids, and your sodium improved. We talked about how your blood pressure was running on the normal to low side on just the carvedilol here. We talked about how you should stop your chlorthalidone, as well as your hydralazine at home. We talked about you should still continue to take your fish oil, your statin, as well as your metformin. We are also treating you for urinary tract infection; you have 3 more days of antibiotics. I have sent this to your pharmacy as well. We had physical therapy work with you because you are feeling weak, and they recommended home physical therapy. Our psychotherapist social worker is helping set this up. I would recommend that you follow-up with your primary care physician in the next week or so, as soon as you can. I would have them recheck your blood pressure when you do see him, and see if you need any adjustments to your medications. With your low sodium, I would advise against restarting chlorthalidone. I would encourage you to continue adequate hydration and nutrition when you are at home. I am glad you are feeling better, thank you for allowing us to take care of you. Care Plan Goals: 1. Get stronger, continue to work with physical therapy. 2. Complete your course of antibiotics for urinary tract infection, today is day 2 of 5. 3. Continue your Coreg. Hold your chlorthalidone and your hydralazine. Continue your atorvastatin, metformin, and fish oil. Print Language: Arabic Patient Instructions: UTI, Hyponatremia Dc Follow-up Care: Follow up with your primary care physician [Other]"
[2024-05-15 09:11] LABS: ESTIMATED AVERAGE GLUCOSE 166 mg/dL (70-100); HEMOGLOBIN A1c% 7.4 % (4.27-6.07)
[2024-05-15] MEDS: INSULIN LISPRO 300 UNIT/3 ML PEN SUBQ SCH (12:19)
--- NOTE | 2024-05-19 17:07 | OT Plan of Care ---
OT Inpatient POC Diagnosis DIAGNOSIS Diagnosis: hyponatremia Diagnosis: UTI Chief Complaint: GLF w/ head trauma 12/17, n/v Onset of Chief Complaint: 12/17-12/20/23 MEDICAL/SURGICAL HISTORY Medical History (Updated 05/17/24 @ 14:49 by Kayla Etienne [facility]) Lexi's granulomatosis Acoustic neuroma Hypertension Assessment and Goals ASSESSMENT Assessment: Pt is an 78 yo female referred for OT evaluation secondary to Hyponatremia. Pt supine in bed upon arrival agreeable to participate in skilled interventions. She required SBA for STS t/f with FWW and CGA during functional mobility. SBA for shower chair t/f with use of FWW. SBA to CGA for Showering ADL activity while standing to wash body parts at shower. Pt may benefit from FWW for functional mobility to reduce fall risk. Pt initially struggled to engage in functional mobility, attempting to walk on two ocasions but rejecting to continue. However pt was willing to walk in order to engage in ADL task. Pt will benefit from skilled OT services in acute setting for instruction task modification for ADLs/IADLs to maintain safety and independence. Recommend D/C home with HHOT for home safety evaluation to maintain pt's independence. Recommendation for home assitance as pt reports she struggles at home and becomes tired when engaging on ADL's and IADLs. -Activities of Daily Living Improve Upper Extremity Dressing to:: Modified Independent Improve Lower Extremity Dressing to:: Modified Independent Improve Grooming/Hygiene to:: Modified Independent Improve Bathing to:: Modified Independent Improve Toileting to:: Modified Independent OT Inpatient Plan PLAN Treatment Frequency: 1x/day Duration: Until goals are met -Discharge Recommendations Discharge Location: Previous Living Situation Support/Services Needed: With assist and Home Health O.T. Recommended Equipment: Grab bars and Shower/bath chair Transport Needs at Discharge: Personal vehicle Comment: Pt will benefit from skilled OT services in acute setting for instruction task modification for ADLs/IADLs to maintain safety and independence. Recommend D/C home with HHOT for home safety evaluation to maintain pt's independence. Recommendation for home assitance as pt reports she struggles at home and becomes tired when engaging on ADL's and IADLs.
== END 2024-05-15 13:20 | disposition home health service (06) | DRG 640 ==
LOC: ED 02:18 → ICU 11:26 → MS2 05-14 18:27
PROVIDERS: ADMIT Student in an Organized Health Care Education/Training Program; ATTEND Student in an Organized Health Care Education/Training Program
DX: I50.9 Heart failure, unspecified; M54.9 Dorsalgia, unspecified; I12.9 Hypertensive chronic kidney disease with stage 1 through stage 4 chronic kidney disease, or unspecified chronic kidney disease; N39.0 Urinary tract infection, site not specified; E87.1 Hypo-osmolality and hyponatremia; R41.0 Disorientation, unspecified; E11.9 Type 2 diabetes mellitus without complications; N18.9 Chronic kidney disease, unspecified; G93.41 Metabolic encephalopathy; R53.1 Weakness; E87.6 Hypokalemia; I11.0 Hypertensive heart disease with heart failure; G89.29 Other chronic pain; Z79.84 Long term (current) use of oral hypoglycemic drugs

== ENCOUNTER 2024-10-26 12:54 | Observation (INO) ==
--- NOTE | 2024-10-26 13:30 | ED Physician Documentation ---
PD HPI CHEST PAIN Stated complaint Stated Complaint: HTN/GALO Chief complaint Chief Complaint: Cardiac History obtained from History obtained from: Patient and EMS History of Present Illness Timing - onset: Today Timing - details: Gradual onset (awoke with pressure feeling GALO and took BP, noting it above 200 systolic. Typical is around 150s per pt. On BP med and has been taking it. [place] okay yesterday. No URI symptoms. No focal weakness/deficits. ) and Still present Pain level max: 8 Pain level now: 8 Quality: Pressure and Tightness; No Sharp Associated symptoms: Nausea, Feeling faint / dizzy and Other (headache); No Shortness of air or Vomiting Similar symptoms before: Has not had sx before (elevated BP but not GALO associated and ahs not had BP elevated this high. ) Meds/Allgy Home Medications Ambulatory Orders Medication Instructions Recorded Confirmed omega 0-mvu-npn-fish oil 1,000 mg 1,000 mg PO BID 02/02/18 10/26/24 (120 mg-180 mg) capsule (Fish Oil) rosuvastatin 10 mg tablet See Rx Instructions .Route 05/21/24 10/26/24 .COMPLEX #90 tabs alendronate 70 mg tablet 70 mg PO QWEEK #13 tabs 06/07/24 10/26/24 melatonin 5 mg capsule 5 mg PO PRN sleep 06/07/24 08/16/24 carvedilol 25 mg tablet 25 mg PO BID 08/16/24 10/26/24 losartan 50 mg tablet 50 mg PO BID 08/16/24 10/26/24 metformin 500 mg tablet See Rx Instructions .Route 10/26/24 .COMPLEX #60 tabs Allergies Allergies Allergy/AdvReac Type Severity Reaction Status Date / Time amlodipine AdvReac Unknown Verified 10/26/24 13:19 simvastatin (From Zocor) AdvReac Unknown Verified 10/26/24 13:19 PFSH Active Problems All Active Problems (Updated 10/26/24 @ 17:17 by Olivia Hughes MD) Headache (Acute) Hypertensive urgency (Acute) Hypothyroid (Acute) Chronic gastroesophageal reflux disease without esophagitis (Chronic) Osteoporosis, unspecified (Chronic) Diabetes mellitus with stage 3 chronic kidney disease, without long-term current use of insulin (Chronic) Medication management (Chronic) Hyperlipidemia LDL goal <70 (Chronic) Type 2 diabetes mellitus (Chronic) 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 Vasculitis post TB treatment History of appendectomy Status post hysterectomy for vaginal ureteral prolapse, failed pessary. Also had AP colporrhaphy, sacral spinous vaginal resuspension, cystoscopy Family History Family History (Updated 10/26/24 @ 17:15 by Olivia Hughes MD) Sister Breast cancer Brother Lung cancer Social History Social History (Updated 10/26/24 @ 18:04 by Olivia Hughes MD) Smoking Status: Never smoker Second hand tobacco smoke exposure: No Do you dip or chew tobacco?: No Do you vape?: No Living arrangement: At home Marital Status: Living Condition: Alone and With caregiver(s) More Information: Does not want to move to assisted living 05/2024- Support Person: Yes Relationship: DPOA Living Situation Details: She lives along with caregivers. Family lives in [place] and helps occasionally. Level: Assisted Home Mobility Equipment: Walker Do you feel safe in your home environment?: Yes Suffered physical, verbal, emotional, or financial abuse?: No History of Abuse: No ETOH Use: None Substance Use: denies use Are you sexually active?: No POLST Patient has POLST: No Exam Exam Vital Signs: Vital Signs x48h Pulse Resp BP Pulse Ox 10/26/24 16:00 48 L 16 220/90 H 98 Constitutional normal general appearance, distress noted (moderate) and average body habitus Eyes PERRL, EOMs intact bilaterally and no papilledema Neck/C-Spine supple and no meningeal signs Lymph no lymphadenopathy noted Respiratory breath sounds equal bilaterally and normal respiratory effort Cardiovascular normal heart rate noted, regular rhythm noted and no edema Gastrointestinal abdomen soft to palpation and nontender to palpation Neurology no movement abnormality noted, no focal motor deficit noted, no sensory deficits noted, gait normal, speech normal and GCS 15 Psychiatry mental status grossly normal, oriented x3, thought process normal and cooperative Skin skin color normal Results Vitals Vitals: Vital Signs - 24 hr 10/26/24 13:19 10/26/24 13:20 10/26/24 13:30 Temperature 36.7 C Temperature Source Temporal Artery Scan Pulse Rate 56 L 54 L Respiratory Rate 16 17 17 Blood Pressure 198/90 H 138/96 H O2 Saturation 99 98 99 O2 Source Room air Room air Room air Pain Intensity 7 7 7 10/26/24 13:50 10/26/24 14:30 10/26/24 14:36 Temperature Temperature Source Pulse Rate 55 L Respiratory Rate 18 16 Blood Pressure 223/95 H O2 Saturation 100 O2 Source Room air Room air Pain Intensity 7 7 7 10/26/24 14:41 10/26/24 14:59 10/26/24 15:06 Temperature Temperature Source Pulse Rate 54 L 53 L 52 L Respiratory Rate 15 15 15 Blood Pressure 174/88 H 164/90 H 223/95 H O2 Saturation 100 98 96 O2 Source Room air Room air Room air Pain Intensity 7 6 4 10/26/24 15:12 10/26/24 15:15 10/26/24 15:26 Temperature Temperature Source Pulse Rate 51 L Respiratory Rate 15 Blood Pressure O2 Saturation 99 O2 Source Room air Pain Intensity 3 6 6 10/26/24 15:28 10/26/24 15:35 10/26/24 16:00 Temperature Temperature Source Pulse Rate 49 L 48 L Respiratory Rate 15 16 Blood Pressure 174/92 H 220/90 H O2 Saturation 98 98 O2 Source Room air Room air Pain Intensity 6 6 6 Oxygen O2 Source Room air Labs Labs: Laboratory Tests 10/26/24 10/26/24 13:30 14:36 WBC 7.4 RBC 4.75 Hgb 13.6 Hct 43.3 MCV 91.2 MCH 28.6 MCHC 31.4 L RDW 12.5 Plt Count 202 MPV 8.7 Neut # (Auto) 4.6 Lymph # (Auto) 2.3 Levy # (Auto) 0.3 Eos # (Auto) 0.2 Baso # (Auto) 0.0 Absolute Nucleated RBC 0.00 Nucleated RBC % 0.0 Sodium 136 Potassium 3.7 Chloride 104 Carbon Dioxide 25 Anion Gap 7.0 BUN 14 Creatinine 1.1 Estimated GFR (MDRD) 48 L Glucose 125 H Calcium 9.0 Magnesium 2.3 Total Bilirubin 0.7 AST 19 ALT 17 Alkaline Phosphatase 51 Total Protein 7.9 Albumin 4.4 Globulin 3.5 Albumin/Globulin Ratio 1.3 Lipase 52 Urine Color LIGHT YELLOW Urine Clarity HAZY Urine pH 6.5 Ur Specific [place] <=1.005 Urine Protein NEGATIVE Urine Glucose (UA) NEGATIVE Urine Ketones NEGATIVE Urine Occult Blood TRACE-INTA Urine Nitrite POSITIVE H Urine Bilirubin NEGATIVE Urine Urobilinogen 0.2 (NORMAL) Ur Leukocyte Esterase NEGATIVE Urine RBC 0-5 Urine WBC 0-3 Ur Squamous Epith Cells FEW Squamous Urine Bacteria Few Ur Microscopic Review INDICATED Urine Culture Comments INDICATED Rads (name of study) head CT: Relevant Findings:: Final report received (no ICH nor acute process. ) and EMP independent interpretation of test PD Medical Decision Making ED course Complexity details: reviewed results, re-evaluated patient (pt still with headache and elevated BP afte 3 doses of meds for BP, including enalapril x 2 and Dilaudid for the GALO (if reverse causation). CT head neagative for edema, bleed. Creatinine level is not elevated over baseline. No infectious symptoms. Hypertensive urgency with GALO symptoms and nausea. ) and d/w patient Critical Care Critical Care Provided: Yes Time(min): 45 Comments: vasoactive meds IV for BP lowering, assessment of labs and CT. Repeated eval of vitals and medication effects. Time Includes: Direct patient care, Reassess patient, Document care and Coordinate care Discharge Plan Discharge Patient Disposition: ED Place in Observation Condition: Stable Clinical Impression: Hypertensive urgency, Headache Interventions: ED Admission Assessment Last Done: 10/26/24 17:08
[2024-10-26 13:57] LABS: BILIRUBIN,URINE NEGATIVE (NEGATIVE); GLUCOSE, URINE (UA) NEGATIVE (NEGATIVE); KETONES,URINE (UA) NEGATIVE (NEGATIVE); LEUKOCYTE ESTERASE, URINE NEGATIVE (NEGATIVE); NITRITE,URINE POSITIVE (NEGATIVE); OCCULT BLOOD,URINE TRACE-INTA (NEGATIVE); PH,URINE 6.5 PH (5.0-7.5); PROTEIN,URINE NEGATIVE (NEGATIVE); UROBILINOGEN,URINE 0.2 (NORMAL) E.U./dL (NORMAL)
[2024-10-26 13:58] LABS: CLARITY,URINE HAZY (CLEAR)
[2024-10-26 14:12] LABS: BACTERIA,URINE Few /HPF (None Seen); RBC,URINE 0-5 /HPF (0-5); SQUAMOUS EPITHELIAL CELL,UR FEW Squamous (<= Few); WBC,URINE 0-3 /HPF (0-5)
[2024-10-26] MEDS: ENALAPRILAT 1.25 MG/ML VIAL IVP STA ×2 (14:32→15:10)
[2024-10-26] MEDS: MORPHINE 10 MG/ML VIAL IVP STA (14:36)
[2024-10-26 14:42] LABS: BASOPHILS % (AUTO) 0.3 %; EOSINOPHILS # (AUTO) 0.2 10^3/uL (0.0-0.7); EOSINOPHILS % (AUTO) 2.6 %; HCT - HEMATOCRIT 43.3 % (37.0-47.0); HGB - HEMOGLOBIN 13.6 g/dL (12.0-16.0); LYMPHOCYTES # (AUTO) 2.3 10^3/uL (1.5-3.5); LYMPHOCYTES % (AUTO) 30.5 %; MEAN CORPUSCULAR HEMOGLOBIN 28.6 pg (27.0-31.0); MEAN CORPUSCULAR HGB CONC 31.4 g/dL (32.0-36.0); MEAN CORPUSCULAR VOLUME 91.2 fL (81.0-99.0); MEAN PLATELET VOLUME 8.7 fL (7.9-10.8); MONOCYTES # (AUTO) 0.3 10^3/uL (0.0-1.0); MONOCYTES % (AUTO) 4.5 %; NEUTROPHILS # (AUTO) 4.6 10^3/uL (1.5-6.6); NEUTROPHILS % (AUTO) 61.8 %; PLT - PLATELET COUNT 202 10^3/uL (130-450); RED BLOOD COUNT 4.75 10^6/uL (4.20-5.40); RED CELL DISTRIBUTION WIDTH 12.5 % (12.0-15.0); WHITE BLOOD COUNT 7.4 x10^3/uL (4.8-10.8)
[2024-10-26 14:57] LABS: ALBUMIN 4.4 g/dL (3.2-5.5); ALBUMIN/GLOBULIN RATIO 1.3 (1.0-2.2); BILIRUBIN,TOTAL 0.7 mg/dL (0.2-1.0); CREATININE 1.1 mg/dL (0.6-1.3); MAGNESIUM 2.3 mg/dL (1.7-2.3); POTASSIUM 3.7 mmol/L (3.5-4.5); TOTAL PROTEIN 7.9 g/dL (6.4-8.9)
--- NOTE | 2024-10-26 15:05 | CT Report ---
PROCEDURE: CT Head WO INDICATIONS: GLAO and elevated BP TECHNIQUE: Noncontrast 4.5 mm thick angled axial sections acquired from the foramen magnum to the vertex. For r adiation dose reduction, the following was used: automated exposure control, adjustment of mA and/or kV according to patient size. COMPARISON: 05/13/2024. FINDINGS: Image quality: Excellent. CSF spaces: Basal cisterns are patent. No extra-axial fluid collections. Ventricles are normal in size and shape. Brain: No midline shift. No intracranial masses or hemorrhage. Moreno-white matter interface is norm al. Intracranial carotid calcifications. Age-related volume loss and small vessel ischemic change. Skull and face: Calvarium and visualized facial bones are intact, without suspicious lesions. Sinuses: Visualized sinuses and mastoids are clear. IMPRESSION: No acute intracranial pathology. Reviewed by: Syd Mijares MD on 10/26/2024 3:04 PM PDT Approved by: Syd Mijares MD on 10/26/2024 3:04 PM PDT Station ID: [id number]
[2024-10-26] MEDS: KETOROLAC 15 MG/ML VIAL IVP STA (15:26)
[2024-10-26] MEDS: HYDROmorphone 0.5 MG/0.5 ML SYRINGE IVP STA (15:28)
--- OUTSIDE RECORDS SUMMARY | 2024-10-26 15:48 | EXTERNAL MEDICAL SUMMARY RPT | Continuity of Care Document ---
Author Organization [place] Address [address] [facility] [address] [place] [address] [place] [id number] Phone Problems date description facility 2024-07-29 08:26 Hypothyroidism, unspecified [facility] 2024-07-29 08:26 Unspecified adrenocortical insu fficiency [facility] 2024-07-29 08:26 Chronic diastolic (congestive) heart failure [facility] 2024-07-29 08:26 Unspecified nephriti c syndrome with unspecified morphologic changes [facility] 2024-07-29 08:26 Proteinuria, unspecified [facility] 2024-07-29 08:28 Hypothyroidism, unspecified [facility] 2024-07-29 08:28 Unspecified adrenocortical insu fficiency [facility] 2024-07-29 08:28 Chronic diastolic (congestive) heart failure [facility] 2024-07-29 08:28 Unspecified nephriti c syndrome with unspecified morphologic changes [facility] 2024-07-29 08:28 Proteinuria, unspecified [facility] 2024-07-29 11:34 Hypothyroidism, unspecified [facility] 2024-07-29 11:34 Unspecified adrenocortical insu fficiency [facility] 2024-07-29 11:34 Chronic diastolic (congestive) heart failure [facility] 2024-07-29 11:34 Unspecified nephriti c syndrome with unspecified morphologic changes [facility] 2024-07-29 11:34 Proteinuria, unspecified [facility] 2024-07-30 00:04 Hypothyroidism, unspecified [facility] 2024-07-30 00:04 Unspecified adrenocortical insu fficiency [facility] 2024-07-30 00:04 Chronic diastolic (congestive) heart failure [facility] 2024-07-30 00:04 Unspecified nephriti c syndrome with unspecified morphologic changes [facility] 2024-07-30 00:04 Proteinuria, unspecified [facility] 2024-08-01 13:45 Unspecified nephriti c syndrome with unspecified morphologic changes [facility] 2024-08-15 11:45 Unspecified nephriti c syndrome with unspecified morphologic changes [facility] 2024-08-17 00:02 Hypothyroidism, unspecified [facility] 2024-08-17 00:02 Type 2 diabetes faraz itus with diabetic chronic kidney disease [facility] 2024-08-17 00:02 Hyperlipidemia, unspecified [facility] 2024-08-17 00:02 Essential (primary) hypertensio n [facility] 2024-08-17 00:02 Age-related osteopor osis without current pathological fracture [facility] 2024-08-17 00:02 Chronic kidney disease, stage 3 unspecified [facility] 2024-08-17 00:02 Chronic kidney disease, stage 3 b [facility] 2024-08-17 00:02 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 [facility] 2024-08-31 16:10 Hypothyroidism, unspecified [facility] 2024-08-31 16:10 Type 2 diabetes faraz itus with diabetic chronic kidney disease [facility] 2024-08-31 16:10 Hyperlipidemia, unspecified [facility] 2024-08-31 16:10 Essential (primary) hypertensio n [facility] 2024-08-31 16:10 Age-related osteopor osis without current pathological fracture [facility] 2024-08-31 16:10 Chronic kidney disease, stage 3 unspecified [facility] 2024-08-31 16:10 Chronic kidney disease, stage 3 b [facility] 2024-08-31 16:10 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 THYROID STIMULATING HORMONE 2024-07-29 08:48 [facility] 10.26 uiu/ml (missing) CHLORIDE 2024-07-29 08:48 [facility] 103 mmol/l As of January 2023 testing method has changed, this may include reference ranges. TOTAL PROTEIN,URINE TIMED 2024-07-29 08:48 [facility] 11 mg/dl As of January 2023 testing method has changed, this may include reference ranges. GLUCOSE 2024-07-29 08:48 [facility] 129 mg/dl As of January 2023 testing method has changed, this may include reference ranges. CORTISOL,AM 2024-07-29 08:48 [facility] 13.2 ug/dl Social History date description facility
[2024-10-26] MEDS: ONDANSETRON 4 MG/2 ML VIAL IVP STA (16:30)
[2024-10-26] MEDS: NICARDIPINE HCL 25 MG in SODIUM CHLORIDE 0.9% 240 ML IV STA (17:00)
[2024-10-26] MEDS ORDERED: SODIUM CHLORIDE FLUSH 0.9% 10 ML SYRINGE IVP PRN (17:04)
[2024-10-26] MEDS ORDERED: ONDANSETRON 4 MG/2 ML VIAL IVP PRN (17:04)
[2024-10-26] MEDS ORDERED: ONDANSETRON ODT 4 MG TABLET TL PRN (17:04)
[2024-10-26] MEDS ORDERED: IBUPROFEN 400 MG TABLET PO PRN (17:04)
--- NOTE | 2024-10-26 17:26 | HISTORY & PHYSICAL EXAMINATION ---
History of Present Illness Admitted From Admitted From:: home via EMS History Obtained From Records Reviewed: [facility] including her old clinic notes History obtained from: patient Exam Limitations: nauseated, headache, eyes closed, hard to concentrate History of Present Illness HPI Comment/Other: This alina lady is a poor historian. She has a vp of technology, and 2 caregivers. Although her children live in [place] she states that they do not help take care of her. She has a diagnosis of granulomatosis polyangiitis that was diagnosed in 2002. Unknown treatment, but she did have acute renal failure and pulmonary hemorrhage in [place]. 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 She has been intolerant of amlodipine which causes headaches and pedal edema. She sees Alejandro Estrada, nephrology at [facility]. He last saw her in April 2024. She was brought in by her vp of technology. Unfortunately he was able to determine that she is not compliant. When they did pill counting she was not taking her chlorthalidone or hydralazine. Unclear if she was taking a beta-ryley. She had already been seen in the emergency room in March 2024 for severe hypertension. In his office her blood pressure was 177/92. "I had a long and neptali discussion with the patient. If she does not follow medical advice in her medication regimen, it is really fruitless for her to continue follow-up with me. I can only work with the patient as a team.". He requested a follow-up CBC CMP in a month. Since that visit with the business owner/engineer she was hospitalized April 2020 for with back pain and confusion. She was hyponatremic. She was treated and discharged to home. She was seen by her business owner/engineer May 2024, June 2024, and August 04, 2024. He felt that her blood pressure did improve greatly. Her kidney function was stable. Blood pressure 156/81. At that time her medications were carvedilol, losartan. Losartan was increased to 50 mg p.o. twice daily. She is followed by MIN Williamson at the clinics. Last visit was August 16, 2024. Her A1c was 7.4%. Creatinine was 1.3. LDL was 61. TSH was 10.26. But the patient tells me that no one addressed that. She has not been started on medication for that. With her visit her blood pressure was 147/73. Weight 134 pounds. Since that time she says that she has been compliant with her medications. She does not feel like any new events have happened. She has 2 caregivers. Each comes 1 day a week. They help her with bathing, cleaning her house, doing her laundry. She is able to feed herself. Uses a cane. They drive her to the grocery store to get groceries. They set up her medications. She states that she did have diarrhea on October 23. It resolved on its own. Starting October 24 she started having a low-grade headache. She took some Tylenol and it seemed to relieve the pain. But then it came back and she is in a nonstop headache since that time. It radiates to the back of her neck. She denies photophobia but states that she likes to close her eyes because it makes the pain better. She has nausea. No focal deficits. Denies chest pain, shortness of breath, pedal edema. Denies any change in the color of her urine. Her blood pressure was in the 220's at home. This morning she woke up, took her blood pressure several times and it was so high that she became alarmed. So EMS was called and her blood pressure was 199/86 with a heart rate of 50. And she was brought to the emergency room. Since being in the emergency room she was given enalapril twice. Once was 1.25 and the other 1 was 2.5. Some Dilaudid for the pain. Ketorolac for the pain. Morphine for the pain. And Zofran for her nausea. All IV. Her blood pressure really did not respond to this and as such the emergency room provider called me to evaluate this patient for admission. After evaluating her and discussing the case with him, I feel that she has hypertensive urgency and would warrant ICU treatment with a nicardipine drip until her headache can go away. So far there does not seem to be endorgan damage. Creatinine is stable at 1.1. Head CT has no acute intracranial pathology. She states that she wants to be full code if her heart were to stop or she were to stop bleeding. She does want chest compressions and intubation Meds/Allgy Home Medications Ambulatory Orders Medication Instructions Recorded Confirmed omega 8-zoy-ier-fish oil 1,000 mg 1,000 mg PO BID 02/02/18 10/26/24 (120 mg-180 mg) capsule (Fish Oil) rosuvastatin 10 mg tablet See Rx Instructions .Route 05/21/24 10/26/24 .COMPLEX #90 tabs alendronate 70 mg tablet 70 mg PO QWEEK #13 tabs 06/07/24 10/26/24 melatonin 5 mg capsule 5 mg PO PRN sleep 06/07/24 08/16/24 carvedilol 25 mg tablet 25 mg PO BID 08/16/24 10/26/24 losartan 50 mg tablet 50 mg PO BID 08/16/24 10/26/24 metformin 500 mg tablet See Rx Instructions .Route 10/26/24 .COMPLEX #60 tabs Allergies Allergies Allergy/AdvReac Type Severity Reaction Status Date / Time amlodipine AdvReac Unknown Verified 10/26/24 13:19 simvastatin (From Zocor) AdvReac Unknown Verified 10/26/24 13:19 PFSH Active Problems All Active Problems (Updated 10/26/24 @ 17:17 by Olivia Hughes MD) Headache (Acute) Hypertensive urgency (Acute) Hypothyroid (Acute) Chronic gastroesophageal reflux disease without esophagitis (Chronic) Osteoporosis, unspecified (Chronic) Diabetes mellitus with stage 3 chronic kidney disease, without long-term current use of insulin (Chronic) Medication management (Chronic) Hyperlipidemia LDL goal <70 (Chronic) Type 2 diabetes mellitus (Chronic) 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 Also had AP colporrhaphy, sacral spinous vaginal resuspension, cystoscopy Family History Family History (Updated 10/26/24 @ 17:15 by Olivia Hughes MD) Sister Breast cancer Brother Lung cancer Social History Social History (Updated 10/26/24 @ 18:04 by Olivia Hughes MD) Smoking Status: Never smoker Second hand tobacco smoke exposure: No Do you dip or chew tobacco?: No Do you vape?: No Living arrangement: At home Marital Status: Living Condition: Alone and With caregiver(s) More Information: Does not want to move to assisted living 05/2024- Support Person: Yes Relationship: DPOA Living Situation Details: She lives along with caregivers. Family lives in [place] and helps occasionally. Level: Assisted Do you feel safe in your home environment?: Yes Suffered physical, verbal, emotional, or financial abuse?: No History of Abuse: No ETOH Use: None Substance Use: denies use Are you sexually active?: No POLST Patient has POLST: No POLST Status: Full Code Review of Systems Constitutional Reports: Fatigue; Denies: Fever, Chills, Malaise, Weakness or Diaphoresis Eyes Reports: Other (right eye larger bc of "the brain surgery for tumor"); Denies: Pain, Irritation, Amaurosis or Vision loss Ears, nose, mouth, and throat Reports: Hearing loss, Dentures and Neck pain (with this headache); Denies: Difficulty swallowing or Throat swelling Cardiovascular Denies: Irregular heart rate, chest pain, palpitations, edema, swelling of feet/ankles, Syncope, lightheadedness, shortness of breath with exertion or shortness of breath when lying down Respiratory Denies: Shortness of breath, Cough, Sputum production, Change in phlegm color, Wheezing, Apnea or Snoring Gastrointestinal Reports: Abdominal pain (chornic and over LLQ off and on. No change in this pattern. ), Poor appetite, Heartburn and Diarrhea (a few times 10/23/24 but no blood, no abd pain, no emesis); Denies: Abdominal distention, Difficulty swallowing, Change in bowel habits, Melena or Blood in stool Genitourinary Denies: Painful urination, Urinary frequency, Urinary urgency, Nocturia or Urinary incontinence Musculoskeletal Reports: Neck pain (with this headache); Denies: Back pain or Joint pain Integumentary/Breast Denies: Rash, Itching or Skin pain Neurological Reports: Headache, General weakness, Confusion and Memory problems; Denies: Focal weakness, Weakness in extremities, Numbness in extremities or Abnormal gait Psychiatric Denies: Depression, Anxiety, Mood swings or Panic attacks Endocrine Reports: Fatigue; Denies: Excessive urination, Excessive thirst or Polyphagia Hematologic/Lymphatic Reports: Anemia (has anemia of chronic disease) Allergic/Immunologic Denies: Hives, Throat swelling or Wheezing Prior Level of Functionality: Uses a walker. Has 2 caregivers. All housekeeping chores routine care by the caregivers. She can dress herself, feed herself. Needs help with a shower. 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 Lives alone. Exam Exam Vital Signs: Vital Signs x48h Temp Pulse Resp BP Pulse Ox 10/26/24 17:08 36.5 C 57 L 15 97 10/26/24 16:58 54 L 10 L 190/90 H 97 10/26/24 16:00 48 L 16 220/90 H 98 10/26/24 15:35 49 L 15 174/92 H 98 10/26/24 15:15 51 L 15 99 10/26/24 15:06 52 L 15 223/95 H 96 10/26/24 14:59 53 L 15 164/90 H 98 10/26/24 14:41 54 L 15 174/88 H 100 10/26/24 14:30 55 L 16 223/95 H 100 10/26/24 13:50 18 10/26/24 13:30 17 138/96 H 99 10/26/24 13:20 54 L 17 98 10/26/24 13:19 36.7 C 56 L 16 198/90 H 99 Tiny Citizen Of [place] female at 5 feet 3 inches, 63.1 kg. I find her sitting up in her gurney in the ER hunched over with her head tilted to the left and forward because of pillow placement. She looks like a little gnome. Alert. Oriented. Able to give a lucid history. Miserable because of her headache and having to close her eyes.Answers were sometimes short and brief because she had to close her eyes, concentrate and try get beyond the pain Constitutional alert Disheveled, looks fatigued.Looks stated age HENMT normocephalic, head/scalp atraumatic and hearing grossly normal bilaterally Eyes Right eye larger than left eye. Bilateral arcus senilis. Neck/C-Spine visual inspection normal, trachea midline, cervical full ROM noted and supple And spite of her neck pain, it is movable. Chest inspection of chest normal Respiratory breath sounds equal bilaterally, normal respiratory effort, clear to auscultation bilaterally, no wheezes, no rales and no retractions Cardiovascular normal heart rate noted, no rub, no murmur and no JVD Gastrointestinal abdomen normal to inspection, abdomen soft to palpation and nondistended Tender left mid abdomen and left lower quadrant. She winced a little bit. But she says that she always hurts "down there" off and on. That is not new. Extremities normal to inspection, normal to palpation, no tenderness and full ROM No edema. Hands and feet are warm. Neurology senior physician II-XII intact, no movement abnormality noted and no focal motor deficit noted Psychiatry mental status grossly normal, oriented x3, thought process normal and cooperative Skin skin color normal and no rash Conclusion/Plan Problem List (1) Hypertensive urgency: Plan: This patient has a history of noncompliance but with her last few visits with her PCP and business owner/engineer blood pressure was felt to be "stable" and that she was compliant with medications. Although the business owner/engineer mentions hydralazine and chlorthalidone, that is not on her current list. I am not seeing any end organ damage on labs nor is her CT showing indications of press.She has a headache indicating hypertensive encephalopathy. But I am not seeing cardiac vascular: Radial and pedal pulses are 2/4 bilaterally I am not seeing kidney emergency at this time. UA does not have any microhematuria. I will place the patient in observation status in the ICU. Start nicardipine drip Gave her her usual home medications of carvedilol 25 mg p.o. twice daily and losartan 50 mg p.o. twice daily. Add Nifedipine XR 30 mg. All dosed now. I will titrate the nicardipine off once her BP is <180 systolic. (2) Headache: Plan: Due to the uncontrolled hypertension. I have ordered tylenol prn. Also oxycodone 5 mg po . (3) Hypothyroid: Plan: Hypothyroidism is on her past medical history but Synthroid is not on her medication list. I we will repeat her TSH and start low-dose Synthroid if appropriate. She will then follow-up in the outpatient clinics. (4) Diabetes mellitus with stage 3 chronic kidney disease, without long-term current use of insulin: Plan: A1c in the morning Regular diet Diagnosis: Diabetes Initiate hypo and hyperglycemia protocols for BG <70 and BG >375. May check BG PRN for signs/symptoms of dysglycemia. Frequency of BG checks: [AC/Meal/HS] Correction Insulin: - Select the type of insulin below Humalog]100 units /ml insulin inject subq per orders indicate below [x] LOW DOSE [] MODERATE DOSE [] MODERATE/HIGH DOSE [] HIGH DOSE GB UNITS GB UNITS GB UNITS GB UNITS 61-140 0 UNITS 61-140 0 UNITS 61-140 0 UNITS 61- 140 0 UNITS 141-175 1 UNITS 141-175 1 UNITS 141-175 2 UNITS 141-175 3 UNITS 176-225 2 UNITS 176-225 3 UNITS 176-225 4 UNITS 176-225 5 UNITS 226-275 3 UNITS 226-275 5 UNITS 226-275 6 UNITS 226-275 7 UNITS 276-325 4 UNITS 276-325 7 UNITS 276-325 8 UNITS 276-325 9 UNITS 326-375 5 UNITS 326-375 9 UNITS 326-375 10 UNITS 326-375 11 UNITS >375 CONTACT MD >375 CONTACT MD >375 CONTACT MD >375 CONTACT MD Lab Results 10/26/24 14:36 10/26/24 14:36
[2024-10-26] MEDS: SODIUM CHLORIDE FLUSH 0.9% 10 ML SYRINGE IVP SCH (17:44)
[2024-10-26] MEDS: NIFEdipine ER 30 MG TABLET PO SCH (18:23)
[2024-10-26] MEDS: carvediloL 12.5 MG TABLET PO SCH (18:23)
[2024-10-26] MEDS: LOSARTAN 50 MG TABLET PO SCH (18:24)
[2024-10-26] MEDS: LOSARTAN 50 MG TABLET PO ONE (18:49)
[2024-10-26 19:15] LABS: AMPHETAMINE SCREEN,URINE NEGATIVE (NEGATIVE); BARBITURATE SCREEN,UR NEGATIVE (NEGATIVE); BENZODIAZEPINES SCREEN, URINE NEGATIVE (NEGATIVE); BUPRENORPHINE SCREEN, URINE NEGATIVE (NEGATIVE); COCAINE SCREEN URINE NEGATIVE (NEGATIVE); METHADONE SCREEN, URINE NEGATIVE (NEGATIVE); METHAMPHETAMINES SCREEN, URINE NEGATIVE (NEGATIVE); OPIATE SCREEN, URINE POSITIVE (NEGATIVE); OXYCODONE SCREEN, URINE NEGATIVE (NEGATIVE); THC CANNABINOID SCREEN, URINE NEGATIVE (NEGATIVE); TRICYCLIC ANTIDEPRESSANT,URINE NEGATIVE (NEGATIVE)
[2024-10-26] MEDS: ACETAMINOPHEN 325 MG TABLET PO PRN (19:33)
[2024-10-26] MEDS: oxyCODONE 5 MG TABLET PO PRN (19:33)
[2024-10-26] MEDS: INSULIN LISPRO 300 UNIT/3 ML PEN SUBQ SCH (20:53)
[2024-10-26] MEDS ORDERED: LOSARTAN 50 MG TABLET PO SCH (21:00)
[2024-10-26] MEDS ORDERED: carvediloL 12.5 MG TABLET PO SCH (21:00)
[2024-10-26] MEDS: NICARDIPINE HCL 25 MG in SODIUM CHLORIDE 0.9% 240 ML IV SCH (22:25)
[2024-10-27 04:46] LABS: BASOPHILS % (AUTO) 0.1 %; EOSINOPHILS % (AUTO) 0.1 %; HCT - HEMATOCRIT 41.6 % (37.0-47.0); HGB - HEMOGLOBIN 13.6 g/dL (12.0-16.0); LYMPHOCYTES # (AUTO) 1.9 10^3/uL (1.5-3.5); LYMPHOCYTES % (AUTO) 22.4 %; MEAN CORPUSCULAR HEMOGLOBIN 28.8 pg (27.0-31.0); MEAN CORPUSCULAR HGB CONC 32.7 g/dL (32.0-36.0); MEAN CORPUSCULAR VOLUME 88.1 fL (81.0-99.0); MEAN PLATELET VOLUME 8.5 fL (7.9-10.8); MONOCYTES # (AUTO) 0.5 10^3/uL (0.0-1.0); MONOCYTES % (AUTO) 5.5 %; NEUTROPHILS % (AUTO) 71.7 %; PLT - PLATELET COUNT 198 10^3/uL (130-450); RED BLOOD COUNT 4.72 10^6/uL (4.20-5.40); RED CELL DISTRIBUTION WIDTH 12.3 % (12.0-15.0); WHITE BLOOD COUNT 8.4 x10^3/uL (4.8-10.8)
[2024-10-27 04:52] LABS: CALCIUM, IONIZED 1.19 mmol/L (1.09-1.30); VBG PH 7.407 (7.31-7.41)
[2024-10-27 05:04] LABS: CALCIUM 8.9 mg/dL (8.5-10.3); CREATININE 1.2 mg/dL (0.6-1.3); MAGNESIUM 2.3 mg/dL (1.7-2.3); PHOSPHORUS 3.7 mg/dL (2.5-5.0); POTASSIUM 3.8 mmol/L (3.5-4.5)
[2024-10-27] MEDS: POTASSIUM CHLORIDE 20 MEQ TABLET PO ONE (08:36)
[2024-10-27 08:41] VITALS: TEMP 98.3
[2024-10-27 09:47] LABS: ESTIMATED AVERAGE GLUCOSE 151 mg/dL (70-100); HEMOGLOBIN A1c% 6.9 % (4.27-6.07)
--- NOTE | 2024-10-27 13:07 | ECHO Report ---
Version: 1 Study ID: [id number] Adult Echocardiogram Report Name: Ashlee Wright Study Date: 10/27/2024, 10: 47 AM BP : 118 / 56 mmHg Patient Location: ICU^2302^01 HR: 56 bpm : 1945 (MM/DD/YYYY) Gender: Female He ight: 63 in Age: 79 Years Weight: 130.073 lb Reason For Study: tia History: Hypertensive urgency, headache Procedure: A complete two-dimensional transthoracic echocardiogram was performed (2D, M-mode, Doppler and color flow Doppler). Indication: Evaluate cardiac and valve function. The study was done with the patient in the supine po sition, due to inability to lie on the left side. The underlying rhythm was bradycardia. Interpretation Summary 1. The left ventricle is normal in size. There is normal left ventricular wall thickness. Global left ventricular systolic function is normal. The visual left ventricular ejection fraction is estimated at 55-60%. 2. The right ventricle is normal size. The right ventricular systolic function is normal. 3. The interatrial septum appears intact, without evidence of shunt by 2D imaging and color Doppler. 4. No significant valvular disease. Left Ventricle: The left ventricle is normal in size. There is normal left ventricular wall thickness. Global left ve ntricular systolic function is normal. The visual left ventricular ejection fraction is estimated at 55 to 60%. No regio nal wall motion abnormalities are present. The overall diastolic pattern is most consistent with impaired left ventri cular relaxation with low to normal filling pressures. Right Ventricle: The right ventricle is normal size. The basal right ventricular diameter measured from a right ventri cular focused view is 3.5 cm. The right ventricular systolic function is normal. The tricuspid annular plane systolic ex cursion (TAPSE) measurement is 1.9 cm. Aortic Valve: The aortic valve is trileaflet. The aortic valve is mildly thickened. Aortic valve sclerosis is prese nt without stenosis. No aortic regurgitation is present. Mitral Valve: The mitral valve leaflets appear thickened, but with normal motion. No evidence of mitral stenosis is seen. There is mild mitral regurgitation. Tricuspid Valve: The tricuspid valve is normal in structure and function. Trace tricuspid regurgitation present. Pulmonic Valve: The pulmonic valve is normal in structure and function. Trace pulmonic valvular regurgitation is pres ent. Left Atrium: The left atrial volume indexed to body surface area is 39 ml/m2. This refers to the maximal volume me asured prior to mitral valve opening. Left atrial volume index is mildly increased. Right Atrium: Right atrial size is normal. The inferior vena cava is normal in diameter (<2.1cm) but collapse <50% with sniff (estimated right atrial pressure 5-10mmHg). Atrial Septum: Lipomatous hypertrophy of the interatrial septum is present. The interatrial septum appears intact, w ithout evidence of shunt by 2D imaging and color Doppler. Aorta: The diameter of the ascending aorta is 3.1 cm. The aortic annulus measures 3.3cm in diameter. Pulmonary Artery: The pulmonary artery systolic pressure, calculated from a peak tricuspid regurgitant velocity in conj unction with an estimated right atrial pressure, is 32.5mmHg. Pericardium/Pleural Space: There is no pericardial effusion. CPT Codes: 86545/[id number]: Transthoracic Echo with Spectral and Color Doppler. Doppler Measurements & Calculations LV V1 max: 99.8 cm/sec LV V1 max P.0 mmHg MV A max onel: 75.1 cm/sec MV dec time: 0.21 sec MV DVI-pr_phl: 0.89 MV E max onel: 66.6 cm/sec PA max P.0 mmHg PA V2 max: 86.4 cm/sec Pulm A Revs Dur: 0.17 sec Pulm A Revs Onel: 18.8 cm/sec RAP systole: 10.0 mmHg TR max P.5 mmHg TR max onel: 237.3 cm/sec MMode/2D Measurements & Calculations Ao root diam: 3.3 cm EF (est.): 48.4 % ESV(sp4-el): 62.7 ml Heart Rate: 56.0 BPM Height (metric): 160.0 cm IVSd: 1.14 cm LA A4C-A/L_phl: 19.9 cm² LA dimension: 5.4 cm LA ESV-A/L_phl: 59.2 ml LAV(MOD-sp2): 58.2 ml LAV(MOD-sp4): 61.8 ml LVIDd: 4.0 cm LVIDs: 2.7 cm LVPWd: 1.06 cm Systolic Pressure: 118.0 mmHg TAPSE_phl: 1.87 cm Other Measurements & Calculations Ao root diam: 3.3 cm BMI: 23.0 kilograms/m² BSA: 1.61 m² BSA([facility]): 1.63 m² Diastolic Pressure: 56.0 mmHg EDV(Teich): 71.6 ml EF (est.): 48.4 % EF(Teich): 63.1 % ESV(sp4-el): 62.7 ml ESV(Teich): 26.4 ml FS: 33.7 % Heart Rate: 56.0 BPM Height (metric): 160.0 cm IVSd: 1.14 cm LA A4C-A/L_phl: 19.9 cm² LA dimension: 5.4 cm LA ESV-A/L_phl: 59.2 ml LAV(MOD-sp2): 58.2 ml LAV(MOD-sp4): 61.8 ml LV V1 max: 99.8 cm/sec LVIDd: 4.0 cm LVIDs: 2.7 cm LVPWd: 1.06 cm MV A max onel: 75.1 cm/sec MV dec time: 0.21 sec MV DVI-pr_phl: 0.89 MV E max onel: 66.6 cm/sec MV E/A: 0.89 PA max P.0 mmHg PA V2 max: 86.4 cm/sec Pulm A Revs Dur: 0.17 sec Pulm A Revs Onel: 18.8 cm/sec RAP systole: 10.0 mmHg RVSP(TR): 32.5 mmHg Systolic Pressure: 118.0 mmHg TAPSE_phl: 1.87 cm TR max P.5 mmHg TR max onel: 237.3 cm/sec TV max P.5 mmHg Weight (metric): 59.0 kg Lat E/e': 12.0 Med E/e': 14.3 Sam Saucedo MD 10/27/2024, 1: 07 PM Ordering Physician: Olivia Hughes Referring Physician: Sergio Orellana Performed By: Adri Ulrich RDCS
--- NOTE | 2024-10-27 13:44 | Discharge Summary ---
Discharge Summary Admit Date: 10/26/24 Discharge Date: 10/27/24 Discharging Provider: Olivia Hughes MD Primary Care Provider: TRISTEN Williamson Code Status: Attempt Resuscitation DIAGNOSES Discharge Diagnoses with Status of Each Condition: 1. Hypertensive urgency 2. Headache 3. Hypothyroidism 4. Type 2 diabetes mellitus, with stage III chronic kidney disease without long-term use of insulin HPI History of Present Illness: This alina lady is a poor historian. She has a powder shoveler, and 2 caregivers. Although her children live in [place] she states that they do not help take care of her. She has a diagnosis of granulomatosis polyangiitis that was diagnosed in 2002. Unknown treatment, but she did have acute renal failure and pulmonary hemorrhage in [place]. 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 She has been intolerant of amlodipine which causes headaches and pedal edema. She sees Alejandro Estrada, nephrology at [facility]. He last saw her in April 2024. She was brought in by her powder shoveler. Unfortunately he was able to determine that she is not compliant. When they did pill counting she was not taking her chlorthalidone or hydralazine. Unclear if she was taking a beta-ryley. She had already been seen in the emergency room in March 2024 for severe hypertension. In his office her blood pressure was 177/92. "I had a long and neptali discussion with the patient. If she does not follow medical advice in her medication regimen, it is really fruitless for her to continue follow-up with me. I can only work with the patient as a team.". He requested a follow-up CBC CMP in a month. Since that visit with the cyber incident responder she was hospitalized April 2020 for with back pain and confusion. She was hyponatremic. She was treated and discharged to home. She was seen by her cyber incident responder May 2024, June 2024, and August 04, 2024. He felt that her blood pressure did improve greatly. Her kidney function was stable. Blood pressure 156/81. At that time her medications were carvedilol, losartan. Losartan was increased to 50 mg p.o. twice daily. She is followed by MIN Williamson at the clinics. Last visit was August 16, 2024. Her A1c was 7.4%. Creatinine was 1.3. LDL was 61. TSH was 10.26. But the patient tells me that no one addressed that. She has not been started on medication for that. With her visit her blood pressure was 147/73. Weight 134 pounds. Since that time she says that she has been compliant with her medications. She does not feel like any new events have happened. She has 2 caregivers. Each comes 1 day a week. They help her with bathing, cleaning her house, doing her laundry. She is able to feed herself. Uses a cane. They drive her to the grocery store to get groceries. They set up her medications. She states that she did have diarrhea on Thursday, October 23. It resolved on its own. Starting October 24 she started having a low-grade headache. She took some Tylenol and it seemed to relieve the pain. But then it came back and she is in a nonstop headache since that time. It radiates to the back of her neck. She denies photophobia but states that she likes to close her eyes because it makes the pain better. She has nausea. No focal deficits. Denies chest pain, shortness of breath, pedal edema. Denies any change in the color of her urine. Her blood pressure was in the 220's at home. This morning she woke up, took her blood pressure several times and it was so high that she became alarmed. So EMS was called and her blood pressure was 199/86 with a heart rate of 50. And she was brought to the emergency room. Since being in the emergency room she was given enalapril twice. Once was 1.25 and the other 1 was 2.5. Some Dilaudid for the pain. Ketorolac for the pain. Morphine for the pain. And Zofran for her nausea. All IV. Her blood pressure really did not respond to this and as such the emergency room provider called me to evaluate this patient for admission. After evaluating her and discussing the case with him, I feel that she has hypertensive urgency and would warrant ICU treatment with a nicardipine drip until her headache can go away. So far there does not seem to be endorgan damage. Creatinine is stable at 1.1. Head CT has no acute intracranial pathology. She states that she wants to be full code if her heart were to stop or she were to stop bleeding. She does want chest compressions and intubation CONSULTS | PROCEDURES Procedures: Head CT does not have any acute intracranial pathology HOSPITAL COURSE Hospital Course: She was placed in the intensive care unit and nicardipine drip was started. After overnight stay and loading of her blood pressure medications orally, the patient's blood pressure was eventually controlled with the use of nicardipine drip and her home medications. She also received nifedipine extended release 30 mg. She continues to have a headache. She already has a known history of reaction to amlodipine with a headache and I fear that the nifedipine only contributed to her headache. On my examination I massaged her neck, scalp, and she says that that does help her pain. So she may have some element of neck pain with tension headache. I gave her a Robaxin and she said it did help as well. She is not happy that her headache is not gone 100%. But I explained to her that her blood pressure is now controlled. The headache this is likely residual of the uncontrolled blood pressure and the nifedipine. She can go home and take Tylenol or Robaxin that I am sending her home with. The only manifestation of the hypertensive urgency was the headache. She did not have congestive heart failure, chest pain, or kidney trauma. There is no hematuria on her UA. At discharge blood pressure 118/56, pulse 57, respirations 15, O2 sat is 92% on room air. This patient received enalapril twice in the emergency room. When she came to the ICU she received 100 mg of losartan, carvedilol 25 mg. Nicardipine drip. Procardia XL 30 mg once. By this morning blood pressure was 137/58. She has received her usual home doses of losartan 50 and carvedilol 25. She is a tiny, frail looking [place] female. 5 foot 3 inches tall, 59 kg. She has facial asymmetry with the right eye larger than the left eye she tells me that is because of her acoustic neuroma surgery. Neck is supple and she does have soft carotid bruits. Lungs are clear without any crackles rhonchi wheezing or respiratory distress. She has a regular rate and rhythm with a soft systolic ejection murmur. There is no S4. PMI is normally placed. Abdomen was soft. Nontender. Normal bowel sounds. Extremities without edema. She is oriented to person, place, time but not quite clear on situation and what happened. I have explained to her several times about hypertensive urgency, why her head hurts. But she does not seem to completely understand. She asked me not to notify her children. I feel she is now stable for discharge to return to home. Again she has 2 caregivers. I am asking her to please see her primary care provider in follow- up as well as her cyber incident responder.I am asking her to take 100 mg losartan in the morning and 50 mg at night. To continue the carvedilol. I am not going to continue nifedipine since it only contributes to her headache like the amlodipine did. I will send her home with Bonnie if she has bouts of nausea. Greater than 30 minutes was spent coordinating discharge This document was made in part using voice recognition software. While efforts are made to proofread this document, sound alike and grammatical errors may occur. ALLERGIES Allergies Allergy/AdvReac Type Severity Reaction Status Date / Time amlodipine AdvReac Unknown Verified 10/26/24 13:19 simvastatin (From Zocor) AdvReac Unknown Verified 10/26/24 13:19 MEDICATIONS Ambulatory Orders Medication Instructions Recorded Confirmed omega 5-eof-uah-fish oil 1,000 mg 1,000 mg PO BID 02/02/18 10/26/24 (120 mg-180 mg) capsule (Fish Oil) rosuvastatin 10 mg tablet See Rx Instructions .Route 05/21/24 10/26/24 .COMPLEX #90 tabs alendronate 70 mg tablet 70 mg PO QWEEK #13 tabs 06/07/24 10/26/24 carvedilol 25 mg tablet 25 mg PO BID 08/16/24 10/26/24 losartan 50 mg tablet 50 mg PO BID 08/16/24 10/26/24 metformin 500 mg tablet See Rx Instructions .Route 10/26/24 10/27/24 .COMPLEX #60 tabs ondansetron 4 mg disintegrating 4 mg translingual Q6HR PRN Nausea 10/27/24 tablet / Vomiting #20 tabs PHYSICAL EXAM AT DISCHARGE Vital Signs: Vital Signs x48h Temp Pulse Resp BP Pulse Ox 10/27/24 10:00 57 L 15 118/56 L 92 10/27/24 09:00 60 7 L 152/68 H 94 10/27/24 08:00 36.8 C 61 20 161/74 H 96 10/27/24 07:00 64 18 137/58 H 91 L 10/27/24 06:00 37.2 C 63 19 144/64 H 93 LABS 10/27/24 04:35 10/27/24 04:35 Discharge Plan Discharge Patient Disposition: 01 Home, Self Care Condition: Stable Medically Cleared Date:: 10/27/24 Prescriptions: New ondansetron 4 mg Tablet,Disintegrating 4 mg translingual Q6HR PRN (Reason: Nausea / Vomiting) Qty: 20 0RF Continued rosuvastatin 10 mg tablet See Rx Instructions .ROUTE .COMPLEX Qty: 90 3RF Dose Instruction: take 1 tablet by mouth nightly Rx Instructions: take 1 tablet by mouth nightly metformin 500 mg tablet See Rx Instructions .ROUTE .COMPLEX Qty: 60 0RF Dose Instruction: take 1 tablet by mouth twice a day Rx Instructions: take 1 tablet by mouth twice a day omega 9-emh-zzk-fish oil [Fish Oil] 1,000 MG capsule 1,000 mg PO BID alendronate 70 mg tablet 70 mg PO QWEEK Qty: 13 3RF carvedilol 25 mg tablet 25 mg PO BID Patient Comments: increased by Dr. Virgen Rx Instructions: must administer with a meal/food losartan 50 mg tablet 50 mg PO BID Patient Comments: per Dr. Virgen Diet: Low Sodium Health Concerns: You have a history of high blood pressure. It can get very high. When I read your clinic records you have problems with remembering to take your medicine and there are times that your blood pressure is too high because you are not taking your medicines. You are followed by Dr. MAGNOLIA Virgen. You called an ambulance and asked to be brought to the hospital because you were having nausea, vomiting, and a severe headache. You have been checking your blood pressure for a couple of days and your blood pressure was very high. You are telling us that you are very, very sure that you were taking your pills as instructed. When you came to the emergency room your blood pressure was dangerously high and we think it was a high blood pressure emergency and that was giving you your headache. Your CT of the head shows that you are not having a stroke. High blood pressure that is that high can give you problems with your heart, and your kidneys. We did test to make sure that your heart and kidneys were fine and they were. We put you in the ICU to start you on a special medicine that we could put into your veins as a continuous drip. That safely brought down your blood pressure. You are now off that medicine, and can go back on your normal medicines. Unfortunately you still have a headache. You are still nauseated. I think you are stable to go back home. We are asking you to make sure you take your medications as instructed. Instructions at home: 1. Please see your regular provider, Kayla Etienne, in the next week and let Dr. Virgen know you were here for high blood pressure. 2. If your blood pressure goes back to being high again, I would suggest that you increase your losartan to 100 mg in the morning and 50 mg in the afternoon. Keep the same carvedilol. 3. I am prescribing zofran for the nausea you get when you headache is severe. Use a hot pack on the back of your neck because some of your headache is from neck pain and tension. Print Language: Bahraini Patient Instructions: Headaches Tension, Blood Pressure Dc, ED Hypertension Conf Out Of Control Stand Alone Forms: PCP List Follow-up Care: Kayla Etienne, [employer]LECT[employer]IC [Primary Care Provider] -
[2024-10-27] MEDS: methocarbamoL 500 MG TABLET PO PRN (13:48)
--- NOTE | 2024-10-27 13:55 | PHARMACY PROGRESS NOTE ---
Best Possible Medication History Admit Date and Time: 10/26/24 1631 Home Medications Medication Instructions Recorded Confirmed Type omega 3-ron-lwy-fish oil 1,000 mg 1,000 mg PO BID 02/02/18 10/26/24 History (120 mg-180 mg) capsule (Fish Oil) rosuvastatin 10 mg tablet See Rx Instructions .Route 05/21/24 10/26/24 Rx .COMPLEX #90 tabs alendronate 70 mg tablet 70 mg PO QWEEK #13 tabs 06/07/24 10/26/24 Rx carvedilol 25 mg tablet 25 mg PO BID 08/16/24 10/26/24 History losartan 50 mg tablet 50 mg PO BID 08/16/24 10/26/24 History metformin 500 mg tablet See Rx Instructions .Route 10/26/24 10/27/24 Rx .COMPLEX #60 tabs ondansetron 4 mg disintegrating 4 mg translingual Q6HR PRN Nausea 10/27/24 Rx tablet / Vomiting #20 tabs Processed by: Pharmacy Medications reviewed in ED?: No Medication History completed: Yes Patient Interview: Pt unable to participate Secondary Source(s): Pharmacy records and Insurance records [facility] Statement: Per [facility] attempt to interview patient, review of [employer] records, and fax to [facility]. As the person ultimately responsible for medication therapy, providers are able to order a medication from an existing home medication list in [facility] via the "Reconcile Routine" prior to Confirmation of that medication by call center support consultant. Such practice is discouraged except when the physician, in their clinical judgment, deems that a medical need exists for a medication without regard to previous use.
[2024-10-27 14:10] VITALS: BP 126/67; O2SAT 97
== END 2024-10-27 17:46 | disposition home or self-care (01) ==
LOC: ED 12:54 → ICU 12:54
PROVIDERS: ADMIT Specialist; ATTEND Specialist
DX: Z79.84 Long term (current) use of oral hypoglycemic drugs; I12.9 Hypertensive chronic kidney disease with stage 1 through stage 4 chronic kidney disease, or unspecified chronic kidney disease; M31.30 Wegener's granulomatosis without renal involvement; N18.32 Chronic kidney disease, stage 3b; R51.9 Headache, unspecified; E11.22 Type 2 diabetes mellitus with diabetic chronic kidney disease; E11.9 Type 2 diabetes mellitus without complications; E03.9 Hypothyroidism, unspecified; I16.0 Hypertensive urgency